=== PATIENT | female | born 1975 | race Caucasian/White ===

== ENCOUNTER → 2016-06-27 | Outpatient (REF) | payer OTHER, MEDICAID ==
[~2016-06-27] MED LIST: ABIL20TA2; ABIL30TA4; AMOX875T; ATIV1TAB2; CLOZ100T OR; CLOZ100T PO; CLOZ100T2 PO; CLOZ25TA2 PO; CLOZARIL PO; DEPA1TAB PO; DEPA250T2 PO; DEPA250T3 OR; DEPA500T; DEPA500T2; DEPA500T2 PO; DOCU10CA PO; HYDR25TA6; INVE156I IM; INVE234I IM; LAMI25TA PO; LAMI25TA3 PO; LAMI50TA2 PO; LEXA1TAB PO; QUET30XR; RISP1TAB; RISP2TAB12; SERO400T3; SERO400T3 OR; TRAZ100T OR
[2016-06-27 15:49] LABS: BASO % 0.2 % (0.0-1.0); EOS % 0.1 % (0.0-3.0); LARGE UNSTAINED CELL # 0.1 K/mm3 (0.0-0.4); LARGE UNSTAINED CELL % 1.5 % (0.0-4.0); LYMPH # 1.7 K/mm3 (1.5-4.5); LYMPH % 27.2 % (24.0-44.0); MEAN CORPUSCULAR HEMOGLOBIN 29.1 pg (27.0-33.0); MEAN CORPUSCULAR HGB CONC 33.4 g/dl (32.0-36.5); MEAN CORPUSCULAR VOLUME 87.1 fl (80.0-96.0); MONO # 0.4 K/mm3 (0.0-0.8); MONO % 6.6 % (0.0-5.0); NEUTROPHILS % 64.5 % (36.0-66.0); PLATELET COUNT, AUTOMATED 157 k/mm3 (150-450); RED CELL DISTRIBUTION WIDTH 12.2 % (11.5-14.5); WHITE BLOOD COUNT 6.2 K/mm3 (4.0-10.0)
== END ==
LOC: M LABDRAW1 13:20
PROVIDERS: ATTEND Psychiatry & Neurology Psychiatry
DX: Z51.81 Encounter for therapeutic drug level monitoring (principal); Z79.899 Other long term (current) drug therapy

== ENCOUNTER → 2016-07-25 | Outpatient (REF) | payer OTHER, MEDICAID ==
[2016-07-25 12:53] LABS: BASO % 0.2 % (0.0-1.0); EOS % 0.2 % (0.0-3.0); LARGE UNSTAINED CELL # 0.1 K/mm3 (0.0-0.4); LARGE UNSTAINED CELL % 1.3 % (0.0-4.0); LYMPH # 1.7 K/mm3 (1.5-4.5); LYMPH % 25.4 % (24.0-44.0); MEAN CORPUSCULAR HGB CONC 34.5 g/dl (32.0-36.5); MONO # 0.5 K/mm3 (0.0-0.8); NEUTROPHILS # 4.3 K/mm3 (1.8-7.7); NEUTROPHILS % 65.9 % (36.0-66.0); PLATELET COUNT, AUTOMATED 136 k/mm3 (150-450); RED CELL DISTRIBUTION WIDTH 12.4 % (11.5-14.5); WHITE BLOOD COUNT 6.5 K/mm3 (4.0-10.0)
== END ==
LOC: M LABDRAW1 12:22
PROVIDERS: ATTEND Psychiatry & Neurology Psychiatry
DX: Z79.899 Other long term (current) drug therapy (principal)

== ENCOUNTER → 2016-08-23 | Outpatient (REF) | payer OTHER, MEDICAID ==
[2016-08-23 16:55] LABS: ALBUMIN 3.2 GM/DL (3.2-5.2); ALBUMIN/GLOBULIN RATIO 0.84 (1.00-1.93); ALKALINE PHOSPHATASE 91 U/L (45-117); ALT/SGPT 40 U/L (12-78); ANION GAP 9 MEQ/L (8-16); AST/SGOT 22 U/L (15-37); BILIRUBIN,TOTAL 0.4 MG/DL (0.2-1.0); BLOOD UREA NITROGEN 14 MG/DL (7-18); CALCIUM LEVEL 8.8 MG/DL (8.5-10.1); CARBON DIOXIDE LEVEL 26 MEQ/L (21-32); CHLORIDE LEVEL 107 MEQ/L (98-107); CHOLESTEROL LEVEL 262 MG/DL (<200); CREATININE FOR GFR 0.77 MG/DL (0.55-1.02); GLOMERULAR FILTRATION RATE > 60.0 (>58); GLUCOSE, FASTING 90 MG/DL (70-105); POTASSIUM SERUM 3.7 MEQ/L (3.5-5.1); SODIUM LEVEL 142 MEQ/L (136-145); TRIGLYCERIDES LEVEL 357 MG/DL (<150)
== END ==
LOC: M LABDRAW1 15:30
PROVIDERS: ATTEND Family Medicine Addiction Medicine
DX: E78.5 Hyperlipidemia, unspecified (principal); E55.9 Vitamin D deficiency, unspecified

== ENCOUNTER → 2016-08-23 | Outpatient (REF) | payer OTHER, MEDICAID ==
[2016-08-23 17:03] LABS: BASO % 0.2 % (0.0-1.0); LARGE UNSTAINED CELL # 0.1 K/mm3 (0.0-0.4); LARGE UNSTAINED CELL % 1.3 % (0.0-4.0); LYMPH # 1.6 K/mm3 (1.5-4.5); LYMPH % 28.2 % (24.0-44.0); MEAN CORPUSCULAR HEMOGLOBIN 29.3 pg (27.0-33.0); MEAN CORPUSCULAR HGB CONC 33.9 g/dl (32.0-36.5); MEAN CORPUSCULAR VOLUME 86.5 fl (80.0-96.0); MONO # 0.4 K/mm3 (0.0-0.8); MONO % 7.8 % (0.0-5.0); NEUTROPHILS # 3.5 K/mm3 (1.8-7.7); NEUTROPHILS % 62.5 % (36.0-66.0); PLATELET COUNT, AUTOMATED 156 k/mm3 (150-450); RED CELL DISTRIBUTION WIDTH 12.4 % (11.5-14.5); WHITE BLOOD COUNT 5.6 K/mm3 (4.0-10.0)
== END ==
LOC: M LABDRAW1 15:32
PROVIDERS: ATTEND Psychiatry & Neurology Psychiatry
DX: Z79.899 Other long term (current) drug therapy (principal)

== ENCOUNTER → 2016-09-19 | Outpatient (REF) | payer OTHER, MEDICAID ==
[2016-09-19 14:05] LABS: BASO % 0.1 % (0.0-1.0); EOS % 0.1 % (0.0-3.0); LARGE UNSTAINED CELL # 0.1 K/mm3 (0.0-0.4); LARGE UNSTAINED CELL % 0.8 % (0.0-4.0); LYMPH # 1.3 K/mm3 (1.5-4.5); LYMPH % 21.8 % (24.0-44.0); MEAN CORPUSCULAR HEMOGLOBIN 29.6 pg (27.0-33.0); MEAN CORPUSCULAR HGB CONC 33.9 g/dl (32.0-36.5); MEAN CORPUSCULAR VOLUME 87.5 fl (80.0-96.0); MONO # 0.4 K/mm3 (0.0-0.8); MONO % 6.6 % (0.0-5.0); NEUTROPHILS # 4.2 K/mm3 (1.8-7.7); NEUTROPHILS % 70.6 % (36.0-66.0); PLATELET COUNT, AUTOMATED 135 k/mm3 (150-450); RED CELL DISTRIBUTION WIDTH 12.6 % (11.5-14.5); WHITE BLOOD COUNT 5.9 K/mm3 (4.0-10.0)
== END ==
LOC: M LABDRAW1 13:04
PROVIDERS: ATTEND Psychiatry & Neurology Psychiatry
DX: Z79.899 Other long term (current) drug therapy (principal)

== ENCOUNTER → 2016-10-26 | Outpatient (REF) | payer OTHER, MEDICAID ==
[2016-10-26 13:07] LABS: BASO % 0.2 % (0.0-1.0); EOS % 0.2 % (0.0-3.0); LARGE UNSTAINED CELL # 0.1 K/mm3 (0.0-0.4); LARGE UNSTAINED CELL % 1.1 % (0.0-4.0); LYMPH # 1.6 K/mm3 (1.5-4.5); LYMPH % 27.6 % (24.0-44.0); MEAN CORPUSCULAR HEMOGLOBIN 30.3 pg (27.0-33.0); MEAN CORPUSCULAR HGB CONC 34.9 g/dl (32.0-36.5); MEAN CORPUSCULAR VOLUME 86.7 fl (80.0-96.0); MONO # 0.5 K/mm3 (0.0-0.8); MONO % 8.9 % (0.0-5.0); NEUTROPHILS # 3.5 K/mm3 (1.8-7.7); PLATELET COUNT, AUTOMATED 147 k/mm3 (150-450); RED CELL DISTRIBUTION WIDTH 12.5 % (11.5-14.5); WHITE BLOOD COUNT 5.7 K/mm3 (4.0-10.0)
== END ==
LOC: M LABDRAW1 12:49
PROVIDERS: ATTEND Psychiatry & Neurology Psychiatry
DX: Z79.899 Other long term (current) drug therapy (principal)

== ENCOUNTER → 2016-11-21 | Outpatient (REF) | payer OTHER, MEDICAID ==
[2016-11-21 16:34] LABS: BASO % 0.2 % (0.0-1.0); EOS % 0.1 % (0.0-3.0); LARGE UNSTAINED CELL # 0.1 K/mm3 (0.0-0.4); LYMPH # 1.6 K/mm3 (1.5-4.5); LYMPH % 20.1 % (24.0-44.0); MEAN CORPUSCULAR HEMOGLOBIN 30.3 pg (27.0-33.0); MEAN CORPUSCULAR HGB CONC 34.5 g/dl (32.0-36.5); MEAN CORPUSCULAR VOLUME 87.6 fl (80.0-96.0); MONO # 0.4 K/mm3 (0.0-0.8); MONO % 5.7 % (0.0-5.0); NEUTROPHILS # 5.4 K/mm3 (1.8-7.7); NEUTROPHILS % 72.9 % (36.0-66.0); PLATELET COUNT, AUTOMATED 134 k/mm3 (150-450); RED CELL DISTRIBUTION WIDTH 12.4 % (11.5-14.5); WHITE BLOOD COUNT 7.4 K/mm3 (4.0-10.0)
== END ==
LOC: M LABDRAW1 16:01
PROVIDERS: ATTEND Psychiatry & Neurology Psychiatry
DX: Z79.899 Other long term (current) drug therapy (principal)

== ENCOUNTER → 2016-12-20 | Outpatient (REF) | payer OTHER, MEDICAID ==
[2016-12-20 16:22] LABS: BASO % 0.1 % (0.0-1.0); EOS % 0.1 % (0.0-3.0); LARGE UNSTAINED CELL % 0.5 % (0.0-4.0); LYMPH # 1.2 K/mm3 (1.5-4.5); LYMPH % 18.2 % (24.0-44.0); MEAN CORPUSCULAR HGB CONC 34.4 g/dl (32.0-36.5); MEAN CORPUSCULAR VOLUME 87.1 fl (80.0-96.0); MONO # 0.4 K/mm3 (0.0-0.8); MONO % 5.7 % (0.0-5.0); NEUTROPHILS # 4.9 K/mm3 (1.8-7.7); NEUTROPHILS % 75.4 % (36.0-66.0); PLATELET COUNT, AUTOMATED 146 k/mm3 (150-450); RED CELL DISTRIBUTION WIDTH 12.4 % (11.5-14.5); WHITE BLOOD COUNT 6.5 K/mm3 (4.0-10.0)
== END ==
LOC: M LABDRAW1 16:08
PROVIDERS: ATTEND Psychiatry & Neurology Psychiatry
DX: Z79.899 Other long term (current) drug therapy (principal)

== ENCOUNTER → 2017-01-24 | Outpatient (REF) | payer OTHER, MEDICAID ==
[2017-01-24 14:31] LABS: BASO % 0.4 % (0.0-1.0); EOS % 0.1 % (0.0-3.0); LARGE UNSTAINED CELL # 0.1 K/mm3 (0.0-0.4); LYMPH # 1.5 K/mm3 (1.5-4.5); LYMPH % 25.7 % (24.0-44.0); MEAN CORPUSCULAR HEMOGLOBIN 30.2 pg (27.0-33.0); MEAN CORPUSCULAR HGB CONC 35.1 g/dl (32.0-36.5); MONO # 0.5 K/mm3 (0.0-0.8); MONO % 8.2 % (0.0-5.0); NEUTROPHILS # 3.8 K/mm3 (1.8-7.7); NEUTROPHILS % 64.6 % (36.0-66.0); PLATELET COUNT, AUTOMATED 146 k/mm3 (150-450); RED CELL DISTRIBUTION WIDTH 12.6 % (11.5-14.5); WHITE BLOOD COUNT 5.8 K/mm3 (4.0-10.0)
== END ==
LOC: M LABDRAW1 11:37
PROVIDERS: ATTEND Psychiatry & Neurology Psychiatry
DX: Z79.899 Other long term (current) drug therapy (principal)

== ENCOUNTER → 2017-02-21 | Outpatient (REF) | payer OTHER, MEDICAID ==
[2017-02-21 13:01] LABS: ALBUMIN 3.4 GM/DL (3.2-5.2); ALBUMIN/GLOBULIN RATIO 0.97 (1.00-1.93); ALKALINE PHOSPHATASE 79 U/L (45-117); ALT/SGPT 26 U/L (12-78); ANION GAP 9 MEQ/L (8-16); AST/SGOT 14 U/L (15-37); BILIRUBIN,TOTAL 0.6 MG/DL (0.2-1.0); BLOOD UREA NITROGEN 10 MG/DL (7-18); CALCIUM LEVEL 9.1 MG/DL (8.5-10.1); CARBON DIOXIDE LEVEL 24 MEQ/L (21-32); CHLORIDE LEVEL 108 MEQ/L (98-107); CHOLESTEROL LEVEL 257 MG/DL (<200); CREATININE FOR GFR 0.61 MG/DL (0.55-1.02); GLOMERULAR FILTRATION RATE > 60.0 (>58); GLUCOSE, FASTING 96 MG/DL (70-105); POTASSIUM SERUM 3.7 MEQ/L (3.5-5.1); SODIUM LEVEL 141 MEQ/L (136-145); TOTAL PROTEIN 6.9 GM/DL (6.4-8.2); TRIGLYCERIDES LEVEL 371 MG/DL (<150)
== END ==
LOC: M LABDRAW1 10:59
PROVIDERS: ATTEND Family Medicine Addiction Medicine
DX: E78.5 Hyperlipidemia, unspecified (principal)

== ENCOUNTER → 2017-02-21 | Outpatient (REF) | payer OTHER, MEDICAID ==
[2017-02-21 12:28] LABS: BASO % 0.3 % (0.0-1.0); IMMATURE GRANULOCYTE % 0.2 % (0-0); LYMPH # 1.4 10^3/uL (1.5-4.5); LYMPH % 23.9 % (24.0-44.0); MEAN CORPUSCULAR HEMOGLOBIN 29.2 pg (27.0-33.0); MEAN CORPUSCULAR HGB CONC 34.4 g/dl (32.0-36.5); MEAN CORPUSCULAR VOLUME 84.7 fl (80.0-96.0); MONO # 0.5 10^3/uL (0.0-0.8); MONO % 7.8 % (0.0-5.0); NEUTROPHILS % 67.8 % (36.0-66.0); PLATELET COUNT, AUTOMATED 173 10^3/uL (150-450); RED CELL DISTRIBUTION WIDTH 12.3 % (11.5-14.5); WHITE BLOOD COUNT 5.9 10^3/uL (4.0-10.0)
== END ==
LOC: M LABDRAW1 10:57
PROVIDERS: ATTEND Psychiatry & Neurology Psychiatry
DX: Z79.899 Other long term (current) drug therapy (principal)

== ENCOUNTER → 2017-03-27 | Outpatient (REF) | payer OTHER, MEDICAID ==
[2017-03-27 16:49] LABS: BASO % 0.3 % (0.0-1.0); IMMATURE GRANULOCYTE % 0.2 % (0-0); LYMPH # 1.8 10^3/uL (1.5-4.5); MEAN CORPUSCULAR HEMOGLOBIN 29.2 pg (27.0-33.0); MEAN CORPUSCULAR HGB CONC 34.1 g/dl (32.0-36.5); MEAN CORPUSCULAR VOLUME 85.8 fl (80.0-96.0); MONO # 0.5 10^3/uL (0.0-0.8); MONO % 8.1 % (0.0-5.0); NEUTROPHILS # 4.3 10^3/uL (1.8-7.7); NEUTROPHILS % 64.4 % (36.0-66.0); PLATELET COUNT, AUTOMATED 178 10^3/uL (150-450); RED CELL DISTRIBUTION WIDTH 12.2 % (11.5-14.5); WHITE BLOOD COUNT 6.6 10^3/uL (4.0-10.0)
== END ==
LOC: M LABDRAW1 15:44
PROVIDERS: ATTEND Psychiatry & Neurology Psychiatry
DX: Z79.899 Other long term (current) drug therapy (principal)

== ENCOUNTER → 2017-04-25 | Outpatient (REF) | payer OTHER, MEDICAID ==
[2017-04-25 12:12] LABS: BASO % 0.3 % (0.0-1.0); IMMATURE GRANULOCYTE % 0.3 % (0-0); LYMPH # 1.4 10^3/uL (1.5-4.5); LYMPH % 23.8 % (24.0-44.0); MEAN CORPUSCULAR HEMOGLOBIN 29.1 pg (27.0-33.0); MEAN CORPUSCULAR HGB CONC 33.9 g/dl (32.0-36.5); MEAN CORPUSCULAR VOLUME 85.8 fl (80.0-96.0); MONO # 0.4 10^3/uL (0.0-0.8); MONO % 7.5 % (0.0-5.0); NEUTROPHILS # 3.9 10^3/uL (1.8-7.7); NEUTROPHILS % 68.1 % (36.0-66.0); PLATELET COUNT, AUTOMATED 161 10^3/uL (150-450); RED CELL DISTRIBUTION WIDTH 12.3 % (11.5-14.5); WHITE BLOOD COUNT 5.8 10^3/uL (4.0-10.0)
== END ==
LOC: M LABDRAW1 11:13
PROVIDERS: ATTEND Psychiatry & Neurology Psychiatry
DX: Z51.81 Encounter for therapeutic drug level monitoring (principal); Z79.899 Other long term (current) drug therapy

== ENCOUNTER → 2017-06-27 | Outpatient (REF) | payer OTHER, MEDICAID ==
[2017-06-27 15:58] LABS: BASO % 0.3 % (0.0-1.0); EOS % 0.1 % (0.0-3.0); HEMATOCRIT 43.9 % (36.0-47.0); HEMOGLOBIN 15.3 g/dl (12.0-16.0); IMMATURE GRANULOCYTE # 0.1 10^3/uL (0-0); IMMATURE GRANULOCYTE % 0.7 % (0-0); LYMPH # 1.7 10^3/uL (1.5-4.5); LYMPH % 23.6 % (24.0-44.0); MEAN CORPUSCULAR HEMOGLOBIN 29.4 pg (27.0-33.0); MEAN CORPUSCULAR HGB CONC 34.9 g/dl (32.0-36.5); MEAN CORPUSCULAR VOLUME 84.4 fl (80.0-96.0); MONO # 0.6 10^3/uL (0.0-0.8); MONO % 8.7 % (0.0-5.0); NEUTROPHILS # 4.7 10^3/uL (1.8-7.7); NEUTROPHILS % 66.6 % (36.0-66.0); PLATELET COUNT, AUTOMATED 174 10^3/uL (150-450); RED CELL DISTRIBUTION WIDTH 12.4 % (11.5-14.5); WHITE BLOOD COUNT 7.1 10^3/uL (4.0-10.0)
== END ==
LOC: M LABDRAW1 14:37
DX: Z79.899 Other long term (current) drug therapy (principal)

== ENCOUNTER → 2017-07-25 | Outpatient (REF) | payer OTHER, MEDICAID ==
[2017-07-25 16:22] LABS: BASO % 0.3 % (0.0-1.0); EOS % 0.1 % (0.0-3.0); HEMOGLOBIN 15.4 g/dl (12.0-16.0); IMMATURE GRANULOCYTE % 0.4 % (0-3.0); LYMPH # 1.9 10^3/uL (1.5-4.5); MEAN CORPUSCULAR HEMOGLOBIN 29.3 pg (27.0-33.0); MEAN CORPUSCULAR HGB CONC 34.2 g/dl (32.0-36.5); MEAN CORPUSCULAR VOLUME 85.6 fl (80.0-96.0); MONO # 0.6 10^3/uL (0.0-0.8); MONO % 7.9 % (0.0-5.0); NEUTROPHILS # 4.8 10^3/uL (1.8-7.7); NEUTROPHILS % 65.3 % (36.0-66.0); PLATELET COUNT, AUTOMATED 172 10^3/uL (150-450); RED BLOOD COUNT 5.26 10^6/uL (4.00-5.40); RED CELL DISTRIBUTION WIDTH 12.4 % (11.5-14.5); WHITE BLOOD COUNT 7.3 10^3/uL (4.0-10.0)
== END ==
LOC: M LABDRAW1 15:30
DX: Z51.81 Encounter for therapeutic drug level monitoring (principal); Z79.899 Other long term (current) drug therapy

== ENCOUNTER → 2017-08-22 | Outpatient (REF) | payer OTHER, MEDICAID ==
[2017-08-22 16:01] LABS: ALBUMIN 3.3 GM/DL (3.2-5.2); ALBUMIN/GLOBULIN RATIO 0.94 (1.00-1.93); ALKALINE PHOSPHATASE 92 U/L (45-117); ALT/SGPT 29 U/L (12-78); ANION GAP 7 MEQ/L (8-16); AST/SGOT 18 U/L (7-37); BILIRUBIN,TOTAL 0.5 MG/DL (0.2-1.0); BLOOD UREA NITROGEN 12 MG/DL (7-18); CALCIUM LEVEL 8.8 MG/DL (8.5-10.1); CARBON DIOXIDE LEVEL 26 MEQ/L (21-32); CHLORIDE LEVEL 108 MEQ/L (98-107); CHOLESTEROL LEVEL 241 MG/DL (<200); CHOLESTEROL RISK RATIO 6.179 (<5); CREATININE FOR GFR 0.72 MG/DL (0.55-1.30); GLOMERULAR FILTRATION RATE > 60.0 (>58); GLUCOSE, FASTING 87 MG/DL (70-100); HDL CHOLESTEROL 39 MG/DL (>40); LDL CHOLESTEROL 133.2 MG/DL (<100); NON-HDL-C 202 MG/DL; POTASSIUM SERUM 4.2 MEQ/L (3.5-5.1); SODIUM LEVEL 141 MEQ/L (136-145); TOTAL PROTEIN 6.8 GM/DL (6.4-8.2); TRIGLYCERIDES LEVEL 344 MG/DL (<150)
== END ==
LOC: M LABDRAW1 12:03
DX: E78.5 Hyperlipidemia, unspecified (principal)
CPT/HCPCS: 84443

== ENCOUNTER → 2017-08-22 | Outpatient (REF) | payer OTHER, MEDICAID ==
[2017-08-22 15:31] LABS: BASO % 0.4 % (0.0-1.0); HEMATOCRIT 43.2 % (36.0-47.0); HEMOGLOBIN 14.4 g/dl (12.0-16.0); IMMATURE GRANULOCYTE % 0.3 % (0-3.0); LYMPH # 1.6 10^3/uL (1.5-4.5); MEAN CORPUSCULAR HEMOGLOBIN 28.7 pg (27.0-33.0); MEAN CORPUSCULAR HGB CONC 33.3 g/dl (32.0-36.5); MEAN CORPUSCULAR VOLUME 86.1 fl (80.0-96.0); MONO # 0.5 10^3/uL (0.0-0.8); NEUTROPHILS # 4.6 10^3/uL (1.8-7.7); NEUTROPHILS % 68.3 % (36.0-66.0); PLATELET COUNT, AUTOMATED 160 10^3/uL (150-450); RED BLOOD COUNT 5.02 10^6/uL (4.00-5.40); RED CELL DISTRIBUTION WIDTH 12.5 % (11.5-14.5); WHITE BLOOD COUNT 6.7 10^3/uL (4.0-10.0)
== END ==
LOC: M LABDRAW1 11:33
DX: Z79.899 Other long term (current) drug therapy (principal)
CPT/HCPCS: 36415

== ENCOUNTER → 2017-09-24 | Outpatient (REF) | payer OTHER, MEDICAID ==
[2017-09-24 16:01] LABS: BASO % 0.4 % (0.0-1.0); EOS % 0.1 % (0.0-3.0); HEMOGLOBIN 14.5 g/dl (12.0-15.5); IMMATURE GRANULOCYTE % 0.4 % (0-3.0); LYMPH # 1.7 10^3/uL (1.5-4.5); LYMPH % 25.3 % (24.0-44.0); MEAN CORPUSCULAR HEMOGLOBIN 29.6 pg (27.0-33.0); MEAN CORPUSCULAR HGB CONC 34.5 g/dl (32.0-36.5); MEAN CORPUSCULAR VOLUME 85.7 fl (80.0-96.0); MONO # 0.7 10^3/uL (0.0-0.8); MONO % 9.7 % (0.0-5.0); NEUTROPHILS # 4.3 10^3/uL (1.8-7.7); NEUTROPHILS % 64.1 % (36.0-66.0); PLATELET COUNT, AUTOMATED 168 10^3/uL (150-450); RED CELL DISTRIBUTION WIDTH 12.2 % (11.5-14.5); WHITE BLOOD COUNT 6.8 10^3/uL (4.0-10.0)
== END ==
LOC: M LABDRAW1 15:44
DX: Z79.899 Other long term (current) drug therapy (principal)

== ENCOUNTER → 2017-10-23 | Outpatient (REF) | payer OTHER, MEDICAID ==
[2017-10-23 16:00] LABS: BASO % 0.3 % (0.0-1.0); HEMATOCRIT 43.1 % (36.0-47.0); HEMOGLOBIN 14.8 g/dl (12.0-15.5); IMMATURE GRANULOCYTE % 0.3 % (0-3.0); LYMPH # 1.8 10^3/uL (1.5-4.5); LYMPH % 26.2 % (24.0-44.0); MEAN CORPUSCULAR HEMOGLOBIN 29.5 pg (27.0-33.0); MEAN CORPUSCULAR HGB CONC 34.3 g/dl (32.0-36.5); MEAN CORPUSCULAR VOLUME 85.9 fl (80.0-96.0); MONO # 0.6 10^3/uL (0.0-0.8); MONO % 8.7 % (0.0-5.0); NEUTROPHILS # 4.5 10^3/uL (1.8-7.7); NEUTROPHILS % 64.5 % (36.0-66.0); PLATELET COUNT, AUTOMATED 153 10^3/uL (150-450); RED BLOOD COUNT 5.02 10^6/uL (4.00-5.40); RED CELL DISTRIBUTION WIDTH 12.1 % (11.5-14.5)
== END ==
LOC: M LABDRAW1 15:45
DX: Z51.81 Encounter for therapeutic drug level monitoring (principal); Z79.899 Other long term (current) drug therapy
CPT/HCPCS: 85025

== ENCOUNTER → 2017-11-20 | Outpatient (REF) | payer OTHER, MEDICAID ==
[2017-11-20 17:22] LABS: BASO % 0.3 % (0.0-1.0); HEMATOCRIT 44.4 % (36.0-47.0); HEMOGLOBIN 15.1 g/dl (12.0-15.5); IMMATURE GRANULOCYTE % 0.3 % (0-3.0); LYMPH # 1.8 10^3/uL (1.5-4.5); LYMPH % 26.5 % (24.0-44.0); MEAN CORPUSCULAR HEMOGLOBIN 29.3 pg (27.0-33.0); MONO # 0.6 10^3/uL (0.0-0.8); MONO % 8.1 % (0.0-5.0); NEUTROPHILS # 4.4 10^3/uL (1.8-7.7); NEUTROPHILS % 64.8 % (36.0-66.0); PLATELET COUNT, AUTOMATED 151 10^3/uL (150-450); RED BLOOD COUNT 5.16 10^6/uL (4.00-5.40); RED CELL DISTRIBUTION WIDTH 11.9 % (11.5-14.5); WHITE BLOOD COUNT 6.8 10^3/uL (4.0-10.0)
== END ==
LOC: M LABDRAW1 15:43
DX: Z79.899 Other long term (current) drug therapy (principal)

== ENCOUNTER → 2017-12-25 | Outpatient (REF) | payer OTHER, MEDICAID ==
[2017-12-25 13:51] LABS: BASO % 0.1 % (0.0-1.0); HEMATOCRIT 43.5 % (36.0-47.0); HEMOGLOBIN 14.7 g/dl (12.0-15.5); IMMATURE GRANULOCYTE % 0.4 % (0-3.0); LYMPH # 1.8 10^3/uL (1.5-4.5); LYMPH % 23.5 % (24.0-44.0); MEAN CORPUSCULAR HEMOGLOBIN 29.4 pg (27.0-33.0); MEAN CORPUSCULAR HGB CONC 33.8 g/dl (32.0-36.5); MONO # 0.7 10^3/uL (0.0-0.8); MONO % 9.4 % (0.0-5.0); NEUTROPHILS # 5.1 10^3/uL (1.8-7.7); NEUTROPHILS % 66.6 % (36.0-66.0); PLATELET COUNT, AUTOMATED 168 10^3/uL (150-450); RED CELL DISTRIBUTION WIDTH 12.1 % (11.5-14.5); WHITE BLOOD COUNT 7.6 10^3/uL (4.0-10.0)
== END ==
LOC: M LABDRAW1 13:32
DX: Z51.81 Encounter for therapeutic drug level monitoring (principal); Z79.899 Other long term (current) drug therapy
CPT/HCPCS: 85025

== ENCOUNTER → 2018-02-28 | Outpatient (REF) | payer OTHER, MEDICAID ==
[2018-02-28 14:53] LABS: ALBUMIN 3.3 GM/DL (3.2-5.2); ALBUMIN/GLOBULIN RATIO 0.85 (1.00-1.93); ALKALINE PHOSPHATASE 91 U/L (45-117); ALT/SGPT 28 U/L (12-78); ANION GAP 8 MEQ/L (8-16); AST/SGOT 17 U/L (7-37); BILIRUBIN,TOTAL 0.3 MG/DL (0.2-1.0); BLOOD UREA NITROGEN 15 MG/DL (7-18); CALCIUM LEVEL 8.3 MG/DL (8.5-10.1); CARBON DIOXIDE LEVEL 26 MEQ/L (21-32); CHLORIDE LEVEL 106 MEQ/L (98-107); CHOLESTEROL LEVEL 249 MG/DL (<200); CHOLESTEROL RISK RATIO 7.114 (<5); CREATININE FOR GFR 0.76 MG/DL (0.55-1.30); GLOMERULAR FILTRATION RATE > 60.0 (>58); GLUCOSE, FASTING 84 MG/DL (70-100); HDL CHOLESTEROL 35 MG/DL (>40); NON-HDL-C 214 MG/DL; POTASSIUM SERUM 4.1 MEQ/L (3.5-5.1); SODIUM LEVEL 140 MEQ/L (136-145); TOTAL PROTEIN 7.2 GM/DL (6.4-8.2); TRIGLYCERIDES LEVEL 425 MG/DL (<150)
== END ==
LOC: M LABDRAW1 13:56
DX: E78.5 Hyperlipidemia, unspecified (principal)

== ENCOUNTER → 2018-02-28 | Outpatient (REF) | payer OTHER, MEDICAID ==
[2018-02-28 14:13] LABS: BASO % 0.3 % (0.0-1.0); EOS % 0.1 % (0.0-3.0); HEMATOCRIT 44.6 % (36.0-47.0); HEMOGLOBIN 14.9 g/dl (12.0-15.5); IMMATURE GRANULOCYTE % 0.6 % (0-3.0); LYMPH % 28.5 % (24.0-44.0); MEAN CORPUSCULAR HEMOGLOBIN 29.1 pg (27.0-33.0); MEAN CORPUSCULAR HGB CONC 33.4 g/dl (32.0-36.5); MEAN CORPUSCULAR VOLUME 87.1 fl (80.0-96.0); MONO # 0.6 10^3/uL (0.0-0.8); MONO % 8.6 % (0.0-5.0); NEUTROPHILS # 4.3 10^3/uL (1.8-7.7); NEUTROPHILS % 61.9 % (36.0-66.0); PLATELET COUNT, AUTOMATED 173 10^3/uL (150-450); RED BLOOD COUNT 5.12 10^6/uL (4.00-5.40); RED CELL DISTRIBUTION WIDTH 12.3 % (11.5-14.5)
== END ==
LOC: M LABDRAW1 13:55
DX: Z79.899 Other long term (current) drug therapy (principal)

== ENCOUNTER → 2018-03-28 | Outpatient (REF) | payer OTHER, MEDICAID ==
[2018-03-28 17:04] LABS: BASO % 0.4 % (0.0-1.0); HEMATOCRIT 44.7 % (36.0-47.0); HEMOGLOBIN 15.2 g/dl (12.0-15.5); IMMATURE GRANULOCYTE % 0.4 % (0-3.0); LYMPH # 1.8 10^3/uL (1.5-4.5); LYMPH % 21.8 % (24.0-44.0); MEAN CORPUSCULAR HEMOGLOBIN 29.5 pg (27.0-33.0); MEAN CORPUSCULAR VOLUME 86.6 fl (80.0-96.0); MONO # 0.7 10^3/uL (0.0-0.8); MONO % 7.9 % (0.0-5.0); NEUTROPHILS # 5.8 10^3/uL (1.8-7.7); NEUTROPHILS % 69.5 % (36.0-66.0); PLATELET COUNT, AUTOMATED 156 10^3/uL (150-450); RED BLOOD COUNT 5.16 10^6/uL (4.00-5.40); RED CELL DISTRIBUTION WIDTH 12.1 % (11.5-14.5); WHITE BLOOD COUNT 8.3 10^3/uL (4.0-10.0)
== END ==
LOC: M LABDRAW1 15:22
DX: Z79.899 Other long term (current) drug therapy (principal)

== ENCOUNTER → 2018-05-01 | Outpatient (REF) | payer OTHER, MEDICAID ==
[2018-05-01 19:03] LABS: BASO % 0.4 % (0.0-1.0); HEMATOCRIT 44.1 % (36.0-47.0); HEMOGLOBIN 14.9 g/dl (12.0-15.5); IMMATURE GRANULOCYTE % 0.5 % (0-3.0); LYMPH # 1.9 10^3/uL (1.5-4.5); LYMPH % 24.8 % (24.0-44.0); MEAN CORPUSCULAR HEMOGLOBIN 29.5 pg (27.0-33.0); MEAN CORPUSCULAR HGB CONC 33.8 g/dl (32.0-36.5); MEAN CORPUSCULAR VOLUME 87.3 fl (80.0-96.0); MONO # 0.6 10^3/uL (0.0-0.8); MONO % 8.2 % (0.0-5.0); NEUTROPHILS # 5.1 10^3/uL (1.8-7.7); NEUTROPHILS % 66.1 % (36.0-66.0); PLATELET COUNT, AUTOMATED 172 10^3/uL (150-450); RED BLOOD COUNT 5.05 10^6/uL (4.00-5.40); RED CELL DISTRIBUTION WIDTH 12.1 % (11.5-14.5); WHITE BLOOD COUNT 7.8 10^3/uL (4.0-10.0)
== END ==
LOC: M LABDRAW1 14:49
DX: Z79.899 Other long term (current) drug therapy (principal)

== ENCOUNTER → 2018-05-30 | Outpatient (REF) | payer OTHER, MEDICAID ==
[2018-05-30 14:53] LABS: BASO % 0.3 % (0.0-1.0); HEMATOCRIT 45.8 % (36.0-47.0); HEMOGLOBIN 15.3 g/dl (12.0-15.5); LYMPH # 1.8 10^3/uL (1.5-4.5); LYMPH % 23.9 % (24.0-44.0); MEAN CORPUSCULAR HGB CONC 33.4 g/dl (32.0-36.5); MEAN CORPUSCULAR VOLUME 86.9 fl (80.0-96.0); MONO # 0.7 10^3/uL (0.0-0.8); MONO % 8.8 % (0.0-5.0); NEUTROPHILS % 66.7 % (36.0-66.0); PLATELET COUNT, AUTOMATED 156 10^3/uL (150-450); RED BLOOD COUNT 5.27 10^6/uL (4.00-5.40); WHITE BLOOD COUNT 7.5 10^3/uL (4.0-10.0)
== END ==
LOC: M LABDRAW1 14:02
PROVIDERS: ATTEND Psychiatry & Neurology Psychiatry
DX: Z51.81 Encounter for therapeutic drug level monitoring (principal); Z79.899 Other long term (current) drug therapy

== ENCOUNTER → 2018-07-05 | Outpatient (REF) | payer OTHER, MEDICAID ==
[2018-07-05 16:03] LABS: BASO % 0.3 % (0.0-1.0); HEMATOCRIT 44.1 % (36.0-47.0); HEMOGLOBIN 14.9 g/dl (12.0-15.5); LYMPH # 1.7 10^3/uL (1.5-4.5); LYMPH % 22.6 % (24.0-44.0); MEAN CORPUSCULAR HEMOGLOBIN 29.3 pg (27.0-33.0); MEAN CORPUSCULAR HGB CONC 33.8 g/dl (32.0-36.5); MEAN CORPUSCULAR VOLUME 86.6 fl (80.0-96.0); MONO # 0.7 10^3/uL (0.0-0.8); MONO % 8.7 % (0.0-5.0); NEUTROPHILS # 5.1 10^3/uL (1.8-7.7); NEUTROPHILS % 68.1 % (36.0-66.0); PLATELET COUNT, AUTOMATED 161 10^3/uL (150-450); RED BLOOD COUNT 5.09 10^6/uL (4.00-5.40); WHITE BLOOD COUNT 7.5 10^3/uL (4.0-10.0)
== END ==
LOC: M LABDRAW1 13:12
PROVIDERS: ATTEND Psychiatry & Neurology Psychiatry
DX: Z79.899 Other long term (current) drug therapy (principal)

== ENCOUNTER → 2018-08-01 | Outpatient (REF) | payer OTHER, MEDICAID ==
[2018-08-01 18:59] LABS: BASO % 0.4 % (0.0-1.0); HEMATOCRIT 45.9 % (36.0-47.0); HEMOGLOBIN 15.3 g/dl (12.0-15.5); LYMPH # 1.9 10^3/uL (1.5-4.5); LYMPH % 27.4 % (24.0-44.0); MEAN CORPUSCULAR HEMOGLOBIN 29.5 pg (27.0-33.0); MEAN CORPUSCULAR HGB CONC 33.3 g/dl (32.0-36.5); MEAN CORPUSCULAR VOLUME 88.6 fl (80.0-96.0); MONO # 0.5 10^3/uL (0.0-0.8); MONO % 7.1 % (0.0-5.0); NEUTROPHILS # 4.4 10^3/uL (1.8-7.7); NEUTROPHILS % 64.8 % (36.0-66.0); PLATELET COUNT, AUTOMATED 179 10^3/uL (150-450); RED BLOOD COUNT 5.18 10^6/uL (4.00-5.40); WHITE BLOOD COUNT 6.8 10^3/uL (4.0-10.0)
== END ==
LOC: M LAB REF 18:01 → M LABDRAW1 18:01
PROVIDERS: ATTEND Psychiatry & Neurology Psychiatry
DX: Z79.899 Other long term (current) drug therapy (principal)

== ENCOUNTER → 2018-09-04 | Outpatient (REF) | payer OTHER ==
[~2018-09-04] MED LIST changes: -CLOZ100T OR; +CLOZ100T45 OR; -QUET30XR; +SERO300T20
[2018-09-04 13:09] LABS: BASO % 0.3 % (0.0-1.0); HEMATOCRIT 45.5 % (36.0-47.0); HEMOGLOBIN 15.2 g/dl (12.0-15.5); LYMPH # 1.6 10^3/uL (1.5-4.5); LYMPH % 17.1 % (24.0-44.0); MEAN CORPUSCULAR HEMOGLOBIN 29.2 pg (27.0-33.0); MEAN CORPUSCULAR HGB CONC 33.4 g/dl (32.0-36.5); MEAN CORPUSCULAR VOLUME 87.5 fl (80.0-96.0); MONO # 0.7 10^3/uL (0.0-0.8); NEUTROPHILS % 75.3 % (36.0-66.0); PLATELET COUNT, AUTOMATED 162 10^3/uL (150-450); WHITE BLOOD COUNT 9.3 10^3/uL (4.0-10.0)
== END ==
LOC: M LABDRAW1 12:01
PROVIDERS: ATTEND Psychiatry & Neurology Psychiatry
DX: Z79.899 Other long term (current) drug therapy (principal)

== ENCOUNTER → 2018-09-04 | Outpatient (REF) | payer OTHER ==
[2018-09-04 13:43] LABS: ALBUMIN 3.4 GM/DL (3.2-5.2); ALT/SGPT 34 U/L (12-78); BILIRUBIN,TOTAL 0.4 MG/DL (0.2-1.0); BLOOD UREA NITROGEN 12 MG/DL (7-18); CALCIUM LEVEL 8.7 MG/DL (8.5-10.1); CARBON DIOXIDE LEVEL 26 MEQ/L (21-32); CHLORIDE LEVEL 106 MEQ/L (98-107); CHOLESTEROL LEVEL 250 MG/DL (<200); CHOLESTEROL RISK RATIO 5.952 (<5); CREATININE FOR GFR 0.76 MG/DL (0.55-1.30); GLOMERULAR FILTRATION RATE > 60.0 (>58); GLUCOSE, FASTING 92 MG/DL (70-100); HDL CHOLESTEROL 42 MG/DL (>40); NON-HDL-C 208 MG/DL; POTASSIUM SERUM 4.1 MEQ/L (3.5-5.1); SODIUM LEVEL 140 MEQ/L (136-145); TOTAL PROTEIN 6.9 GM/DL (6.4-8.2); TRIGLYCERIDES LEVEL 434 MG/DL (<150)
== END ==
LOC: M LABDRAW1 11:58
PROVIDERS: ATTEND Family Medicine Addiction Medicine
DX: E78.5 Hyperlipidemia, unspecified (principal)

== ENCOUNTER → 2018-10-03 | Outpatient (REF) | payer OTHER, MEDICAID ==
[2018-10-03 16:51] LABS: BASO % 0.3 % (0.0-1.0); EOS % 0.1 % (0.0-3.0); HEMOGLOBIN 14.3 g/dl (12.0-15.5); LYMPH # 1.6 10^3/uL (1.5-4.5); LYMPH % 21.2 % (24.0-44.0); MEAN CORPUSCULAR HEMOGLOBIN 29.5 pg (27.0-33.0); MEAN CORPUSCULAR VOLUME 86.8 fl (80.0-96.0); MONO # 0.7 10^3/uL (0.0-0.8); MONO % 8.4 % (0.0-5.0); NEUTROPHILS # 5.4 10^3/uL (1.8-7.7); NEUTROPHILS % 69.2 % (36.0-66.0); PLATELET COUNT, AUTOMATED 170 10^3/uL (150-450); RED BLOOD COUNT 4.84 10^6/uL (4.00-5.40); WHITE BLOOD COUNT 7.7 10^3/uL (4.0-10.0)
== END ==
LOC: M OUTALCOH 16:10
PROVIDERS: ATTEND Psychiatry & Neurology Psychiatry
DX: Z79.899 Other long term (current) drug therapy (principal)

== ENCOUNTER → 2018-10-31 | Outpatient (REF) | payer OTHER, MEDICAID ==
[2018-10-31 16:26] LABS: BASO % 0.4 % (0.0-1.0); HEMATOCRIT 42.3 % (36.0-47.0); HEMOGLOBIN 14.3 g/dl (12.0-15.5); LYMPH # 1.9 10^3/uL (1.5-4.5); LYMPH % 27.9 % (24.0-44.0); MEAN CORPUSCULAR HEMOGLOBIN 28.9 pg (27.0-33.0); MEAN CORPUSCULAR HGB CONC 33.8 g/dl (32.0-36.5); MEAN CORPUSCULAR VOLUME 85.6 fl (80.0-96.0); MONO # 0.7 10^3/uL (0.0-0.8); MONO % 10.3 % (0.0-5.0); NEUTROPHILS # 4.2 10^3/uL (1.8-7.7); NEUTROPHILS % 61.1 % (36.0-66.0); PLATELET COUNT, AUTOMATED 154 10^3/uL (150-450); RED BLOOD COUNT 4.94 10^6/uL (4.00-5.40); WHITE BLOOD COUNT 6.9 10^3/uL (4.0-10.0)
== END ==
LOC: M LABDRAW1 14:31
PROVIDERS: ATTEND Psychiatry & Neurology Psychiatry
DX: Z79.899 Other long term (current) drug therapy (principal)

== ENCOUNTER → 2018-12-05 | Outpatient (REF) | payer OTHER, MEDICAID ==
[2018-12-05 18:20] LABS: BASO % 0.3 % (0.0-1.0); HEMATOCRIT 43.4 % (36.0-47.0); HEMOGLOBIN 14.4 g/dl (12.0-15.5); LYMPH # 1.5 10^3/uL (1.5-4.5); LYMPH % 24.1 % (24.0-44.0); MEAN CORPUSCULAR HEMOGLOBIN 30.1 pg (27.0-33.0); MEAN CORPUSCULAR HGB CONC 33.2 g/dl (32.0-36.5); MEAN CORPUSCULAR VOLUME 90.6 fl (80.0-96.0); MONO # 0.6 10^3/uL (0.0-0.8); MONO % 9.5 % (0.0-5.0); NEUTROPHILS # 4.2 10^3/uL (1.8-7.7); NEUTROPHILS % 65.9 % (36.0-66.0); PLATELET COUNT, AUTOMATED 165 10^3/uL (150-450); RED BLOOD COUNT 4.79 10^6/uL (4.00-5.40); WHITE BLOOD COUNT 6.3 10^3/uL (4.0-10.0)
== END ==
LOC: M LABDRAW1 11:18
PROVIDERS: ATTEND Psychiatry & Neurology Psychiatry
DX: Z79.899 Other long term (current) drug therapy (principal)

== ENCOUNTER → 2019-01-02 | Outpatient (REF) | payer OTHER, MEDICAID ==
[2019-01-02 17:58] LABS: ALBUMIN 3.4 GM/DL (3.2-5.2); ALT/SGPT 29 U/L (12-78); BILIRUBIN,TOTAL 0.4 MG/DL (0.2-1.0); BLOOD UREA NITROGEN 10 MG/DL (7-18); CARBON DIOXIDE LEVEL 25 MEQ/L (21-32); CHLORIDE LEVEL 107 MEQ/L (98-107); CHOLESTEROL LEVEL 239 MG/DL (<200); CHOLESTEROL RISK RATIO 5.975 (<5); CREATININE FOR GFR 0.79 MG/DL (0.55-1.30); GLOMERULAR FILTRATION RATE > 60.0 (>58); GLUCOSE, FASTING 91 MG/DL (70-100); HDL CHOLESTEROL 40 MG/DL (>40); LDL CHOLESTEROL 137 MG/DL (<100); NON-HDL-C 199 MG/DL; SODIUM LEVEL 141 MEQ/L (136-145); TOTAL PROTEIN 7.1 GM/DL (6.4-8.2); TRIGLYCERIDES LEVEL 312 MG/DL (<150)
== END ==
LOC: M LABDRAW1 15:43
PROVIDERS: ATTEND Family Medicine Addiction Medicine
DX: E78.5 Hyperlipidemia, unspecified (principal)

== ENCOUNTER → 2019-01-02 | Outpatient (REF) | payer OTHER, MEDICAID ==
[2019-01-02 18:05] LABS: BASO % 0.5 % (0.0-1.0); HEMATOCRIT 43.7 % (36.0-47.0); HEMOGLOBIN 14.6 g/dl (12.0-15.5); LYMPH # 1.7 10^3/uL (1.5-4.5); LYMPH % 25.1 % (24.0-44.0); MEAN CORPUSCULAR HEMOGLOBIN 29.3 pg (27.0-33.0); MEAN CORPUSCULAR HGB CONC 33.4 g/dl (32.0-36.5); MEAN CORPUSCULAR VOLUME 87.8 fl (80.0-96.0); MONO # 0.7 10^3/uL (0.0-0.8); MONO % 10.1 % (0.0-5.0); NEUTROPHILS # 4.3 10^3/uL (1.8-7.7); NEUTROPHILS % 63.8 % (36.0-66.0); PLATELET COUNT, AUTOMATED 174 10^3/uL (150-450); RED BLOOD COUNT 4.98 10^6/uL (4.00-5.40); WHITE BLOOD COUNT 6.7 10^3/uL (4.0-10.0)
== END ==
LOC: M LABDRAW1 15:47
PROVIDERS: ATTEND Psychiatry & Neurology Psychiatry
DX: Z79.899 Other long term (current) drug therapy (principal)

== ENCOUNTER → 2019-01-30 | Outpatient (REF) | payer OTHER, MEDICAID ==
[2019-01-30 16:11] LABS: BASO % 0.3 % (0.0-1.0); HEMATOCRIT 44.6 % (36.0-47.0); HEMOGLOBIN 14.9 g/dl (12.0-15.5); LYMPH # 1.8 10^3/uL (1.5-5.0); MEAN CORPUSCULAR HEMOGLOBIN 29.2 pg (27.0-33.0); MEAN CORPUSCULAR HGB CONC 33.4 g/dl (32.0-36.5); MEAN CORPUSCULAR VOLUME 87.3 fl (80.0-96.0); MONO # 0.6 10^3/uL (0.0-0.8); MONO % 8.2 % (0.0-5.0); NEUTROPHILS % 67.2 % (36.0-66.0); PLATELET COUNT, AUTOMATED 169 10^3/uL (150-450); RED BLOOD COUNT 5.11 10^6/uL (4.00-5.40); WHITE BLOOD COUNT 7.5 10^3/uL (4.0-10.0)
== END ==
LOC: M LABDRAW1 15:45
PROVIDERS: ATTEND Psychiatry & Neurology Psychiatry
DX: Z79.899 Other long term (current) drug therapy (principal)

== ENCOUNTER → 2019-03-07 | Outpatient (REF) | payer OTHER, MEDICAID ==
[2019-03-07 15:35] LABS: BASO % 0.2 % (0.0-1.0); LYMPH # 1.8 10^3/uL (1.5-5.0); LYMPH % 20.8 % (24.0-44.0); MEAN CORPUSCULAR HEMOGLOBIN 29.5 pg (27.0-33.0); MEAN CORPUSCULAR HGB CONC 33.3 g/dl (32.0-36.5); MEAN CORPUSCULAR VOLUME 88.6 fl (80.0-96.0); MONO # 0.7 10^3/uL (0.0-0.8); MONO % 7.9 % (0.0-5.0); NEUTROPHILS % 70.6 % (36.0-66.0); PLATELET COUNT, AUTOMATED 165 10^3/uL (150-450); RED BLOOD COUNT 5.08 10^6/uL (4.00-5.40); WHITE BLOOD COUNT 8.5 10^3/uL (4.0-10.0)
== END ==
LOC: M LABDRAW1 14:04
PROVIDERS: ATTEND Psychiatry & Neurology Psychiatry
DX: Z79.899 Other long term (current) drug therapy (principal)

== ENCOUNTER → 2019-04-11 | Outpatient (REF) | payer OTHER, MEDICAID ==
[2019-04-11 15:41] LABS: ALBUMIN 3.2 GM/DL (3.2-5.2); ALT/SGPT 30 U/L (12-78); BILIRUBIN,TOTAL 0.4 MG/DL (0.2-1.0); BLOOD UREA NITROGEN 8 MG/DL (7-18); CALCIUM LEVEL 8.5 MG/DL (8.5-10.1); CARBON DIOXIDE LEVEL 25 MEQ/L (21-32); CHLORIDE LEVEL 108 MEQ/L (98-107); CHOLESTEROL LEVEL 216 MG/DL (<200); CHOLESTEROL RISK RATIO 5.837 (<5); CREATININE FOR GFR 0.72 MG/DL (0.55-1.30); GLOMERULAR FILTRATION RATE > 60.0 (>58); GLUCOSE, FASTING 97 MG/DL (70-100); HDL CHOLESTEROL 37 MG/DL (>40); LDL CHOLESTEROL 118 MG/DL (<100); NON-HDL-C 179 MG/DL; POTASSIUM SERUM 3.9 MEQ/L (3.5-5.1); SODIUM LEVEL 141 MEQ/L (136-145); TOTAL PROTEIN 6.8 GM/DL (6.4-8.2); TRIGLYCERIDES LEVEL 307 MG/DL (<150)
[2019-04-11 15:56] LABS: HEMOGLOBIN A1c 5.7 %
== END ==
LOC: M LABDRAW1 15:18
PROVIDERS: ATTEND Nurse Practitioner Family
DX: Z00.00 Encounter for general adult medical examination without abnormal findings (principal); E78.5 Hyperlipidemia, unspecified

== ENCOUNTER → 2019-04-11 | Outpatient (REF) | payer OTHER, MEDICAID ==
[2019-04-11 15:34] LABS: BASO % 0.3 % (0.0-1.0); HEMOGLOBIN 14.7 g/dl (12.0-15.5); LYMPH # 1.6 10^3/uL (1.5-5.0); MEAN CORPUSCULAR HEMOGLOBIN 29.3 pg (27.0-33.0); MEAN CORPUSCULAR HGB CONC 32.7 g/dl (32.0-36.5); MEAN CORPUSCULAR VOLUME 89.6 fl (80.0-96.0); MONO # 0.6 10^3/uL (0.0-0.8); NEUTROPHILS # 4.2 10^3/uL (1.5-8.5); NEUTROPHILS % 65.4 % (36.0-66.0); PLATELET COUNT, AUTOMATED 167 10^3/uL (150-450); RED BLOOD COUNT 5.02 10^6/uL (4.00-5.40); WHITE BLOOD COUNT 6.4 10^3/uL (4.0-10.0)
== END ==
LOC: M LABDRAW1 15:20
PROVIDERS: ATTEND Psychiatry & Neurology Psychiatry
DX: Z79.899 Other long term (current) drug therapy (principal)

== ENCOUNTER → 2019-05-13 | Outpatient (REF) | payer OTHER, MEDICAID ==
[2019-05-13 15:51] LABS: BASO % 0.4 % (0.0-1.0); HEMOGLOBIN 14.7 g/dl (12.0-15.5); LYMPH # 1.6 10^3/uL (1.5-5.0); LYMPH % 22.8 % (24.0-44.0); MEAN CORPUSCULAR HEMOGLOBIN 28.8 pg (27.0-33.0); MONO # 0.6 10^3/uL (0.0-0.8); MONO % 9.3 % (0.0-5.0); NEUTROPHILS # 4.6 10^3/uL (1.5-8.5); NEUTROPHILS % 67.1 % (36.0-66.0); PLATELET COUNT, AUTOMATED 164 10^3/uL (150-450); RED BLOOD COUNT 5.11 10^6/uL (4.00-5.40); WHITE BLOOD COUNT 6.8 10^3/uL (4.0-10.0)
== END ==
LOC: M LABDRAW1 11:13
PROVIDERS: ATTEND Psychiatry & Neurology Psychiatry
DX: Z51.81 Encounter for therapeutic drug level monitoring (principal); Z79.899 Other long term (current) drug therapy

== ENCOUNTER → 2019-06-18 | Outpatient (REF) | payer OTHER, MEDICAID ==
[2019-06-18 15:40] LABS: BASO % 0.4 % (0.0-1.0); HEMATOCRIT 45.8 % (36.0-47.0); HEMOGLOBIN 14.8 g/dl (12.0-15.5); LYMPH # 1.8 10^3/uL (1.5-5.0); LYMPH % 24.6 % (24.0-44.0); MEAN CORPUSCULAR HEMOGLOBIN 28.9 pg (27.0-33.0); MEAN CORPUSCULAR HGB CONC 32.3 g/dl (32.0-36.5); MEAN CORPUSCULAR VOLUME 89.5 fl (80.0-96.0); MONO # 0.6 10^3/uL (0.0-0.8); NEUTROPHILS # 4.7 10^3/uL (1.5-8.5); NEUTROPHILS % 65.7 % (36.0-66.0); PLATELET COUNT, AUTOMATED 163 10^3/uL (150-450); RED BLOOD COUNT 5.12 10^6/uL (4.00-5.40); WHITE BLOOD COUNT 7.1 10^3/uL (4.0-10.0)
== END ==
LOC: M LABDRAW1 15:19
PROVIDERS: ATTEND Psychiatry & Neurology Psychiatry
DX: Z79.899 Other long term (current) drug therapy (principal)

== ENCOUNTER → 2019-07-23 | Outpatient (REF) | payer OTHER, MEDICAID ==
[2019-07-23 15:42] LABS: BASO % 0.4 % (0.0-1.0); EOS % 0.1 % (0.0-3.0); HEMATOCRIT 43.2 % (36.0-47.0); HEMOGLOBIN 14.3 g/dl (12.0-15.5); LYMPH # 1.9 10^3/uL (1.5-5.0); LYMPH % 26.2 % (24.0-44.0); MEAN CORPUSCULAR HEMOGLOBIN 29.4 pg (27.0-33.0); MEAN CORPUSCULAR HGB CONC 33.1 g/dl (32.0-36.5); MEAN CORPUSCULAR VOLUME 88.7 fl (80.0-96.0); MONO # 0.5 10^3/uL (0.0-0.8); NEUTROPHILS # 4.7 10^3/uL (1.5-8.5); PLATELET COUNT, AUTOMATED 194 10^3/uL (150-450); RED BLOOD COUNT 4.87 10^6/uL (4.00-5.40); WHITE BLOOD COUNT 7.1 10^3/uL (4.0-10.0)
== END ==
LOC: M LABDRAW1 14:54
PROVIDERS: ATTEND Psychiatry & Neurology Psychiatry
DX: Z00.00 Encounter for general adult medical examination without abnormal findings (principal)

== ENCOUNTER → 2019-08-20 | Outpatient (REF) | payer OTHER, MEDICAID ==
[2019-08-20 16:00] LABS: BASO % 0.3 % (0.0-1.0); EOS % 0.1 % (0.0-3.0); HEMOGLOBIN 14.8 g/dl (12.0-15.5); LYMPH % 22.5 % (24.0-44.0); MEAN CORPUSCULAR HEMOGLOBIN 28.7 pg (27.0-33.0); MEAN CORPUSCULAR HGB CONC 32.9 g/dl (32.0-36.5); MEAN CORPUSCULAR VOLUME 87.2 fl (80.0-96.0); MONO # 0.8 10^3/uL (0.0-0.8); MONO % 9.1 % (0.0-5.0); NEUTROPHILS # 5.9 10^3/uL (1.5-8.5); NEUTROPHILS % 67.7 % (36.0-66.0); PLATELET COUNT, AUTOMATED 187 10^3/uL (150-450); RED BLOOD COUNT 5.16 10^6/uL (4.00-5.40); WHITE BLOOD COUNT 8.8 10^3/uL (4.0-10.0)
== END ==
LOC: M LABDRAW1 14:26
PROVIDERS: ATTEND Psychiatry & Neurology Psychiatry
DX: Z79.899 Other long term (current) drug therapy (principal)

== ENCOUNTER → 2019-11-03 | Outpatient (CLI) | payer OTHER, MEDICAID ==
[2019-11-03 13:57] LABS: BASO % 0.4 % (0.0-1.0); HEMATOCRIT 45.3 % (36.0-47.0); HEMOGLOBIN 14.9 g/dl (12.0-15.5); LYMPH # 1.7 10^3/uL (1.5-5.0); LYMPH % 21.8 % (24.0-44.0); MEAN CORPUSCULAR HEMOGLOBIN 28.5 pg (27.0-33.0); MEAN CORPUSCULAR HGB CONC 32.9 g/dl (32.0-36.5); MEAN CORPUSCULAR VOLUME 86.8 fl (80.0-96.0); MONO # 0.6 10^3/uL (0.0-0.8); MONO % 7.5 % (0.0-5.0); NEUTROPHILS # 5.4 10^3/uL (1.5-8.5); PLATELET COUNT, AUTOMATED 166 10^3/uL (150-450); RED BLOOD COUNT 5.22 10^6/uL (4.00-5.40); WHITE BLOOD COUNT 7.7 10^3/uL (4.0-10.0)
[2019-11-03 14:26] LABS: ALBUMIN 3.6 GM/DL (3.2-5.2); ALT/SGPT 39 U/L (12-78); BILIRUBIN,TOTAL 0.5 MG/DL (0.2-1.0); BLOOD UREA NITROGEN 13 MG/DL (7-18); CALCIUM LEVEL 8.9 MG/DL (8.5-10.1); CARBON DIOXIDE LEVEL 23 MEQ/L (21-32); CHLORIDE LEVEL 107 MEQ/L (98-107); CHOLESTEROL LEVEL 258 MG/DL (<200); CHOLESTEROL RISK RATIO 7.166 (<5); CREATININE FOR GFR 0.79 MG/DL (0.55-1.30); FREE T4 1.21 NG/DL (0.76-1.46); GLOMERULAR FILTRATION RATE > 60.0 (>58); GLUCOSE, FASTING 116 MG/DL (70-100); HDL CHOLESTEROL 36 MG/DL (>40); NON-HDL-C 222 MG/DL; POTASSIUM SERUM 3.9 MEQ/L (3.5-5.1); SODIUM LEVEL 139 MEQ/L (136-145); TOTAL 25(OH) VITAMIN D 12.3 NG/ML (30.0-100.0); TOTAL PROTEIN 7.2 GM/DL (6.4-8.2); TRIGLYCERIDES LEVEL 527 MG/DL (<150)
[2019-11-03 14:37] LABS: HEMOGLOBIN A1c 5.5 %
[2019-11-03 18:42] LABS: AMORPHOUS SEDIMENT SMALL (NEGATIVE); APPEARANCE, URINE HAZY (CLEAR); BACTERIA, URINE AUTO 2+ (NEGATIVE); BILIRUBIN, URINE AUTO NEGATIVE (NEGATIVE); BLOOD, URINE BLOOD NEGATIVE (NEGATIVE); COLOR, URINE YELLOW (YELLOW); GLUCOSE, URINE (UA) AUTO NEGATIVE (NEGATIVE); KETONE, URINE AUTO NEGATIVE (NEGATIVE); LEUKOCYTE ESTERASE, URINE AUTO 2+ (NEGATIVE); MUCUS, URINE SMALL (NEGATIVE); NITRITE, URINE AUTO NEGATIVE (NEGATIVE); PROTEIN, URINE AUTO NEGATIVE (NEGATIVE); RBC, URINE AUTO 0 /HPF (0-3); SPECIFIC GRAVITY URINE AUTO 1.005 (1.002-1.035); SQUAMOUS EPITHELIAL CELL UR AU 4 /HPF (0-6); UROBILINOGEN, URINE AUTO 0.2 mg/dL (0.0-2.0); WBC, URINE AUTO 6 /HPF (0-3)
== END ==
LOC: M PLALAB 10:06
PROVIDERS: ATTEND Nurse Practitioner Family
DX: E78.5 Hyperlipidemia, unspecified (principal); Z13.9 Encounter for screening, unspecified; F32.9 Major depressive disorder, single episode, unspecified; E66.9 Obesity, unspecified; E55.9 Vitamin D deficiency, unspecified

== ENCOUNTER → 2019-11-05 | Outpatient (REF) | payer OTHER, MEDICAID ==
[2019-11-05 18:46] LABS: AMORPHOUS SEDIMENT MODERATE (NEGATIVE); APPEARANCE, URINE TURBID (CLEAR); BACTERIA, URINE AUTO NEGATIVE (NEGATIVE); BILIRUBIN, URINE AUTO NEGATIVE (NEGATIVE); BLOOD, URINE BLOOD NEGATIVE (NEGATIVE); CALCIUM OXALATE CRYSTALS MODERATE; COLOR, URINE YELLOW (YELLOW); GLUCOSE, URINE (UA) AUTO NEGATIVE (NEGATIVE); KETONE, URINE AUTO NEGATIVE (NEGATIVE); LEUKOCYTE ESTERASE, URINE AUTO 1+ (NEGATIVE); MUCUS, URINE SMALL (NEGATIVE); NITRITE, URINE AUTO NEGATIVE (NEGATIVE); PROTEIN, URINE AUTO 1+ mg/dL (NEGATIVE); RBC, URINE AUTO 0 /HPF (0-3); SPECIFIC GRAVITY URINE AUTO 1.028 (1.002-1.035); SQUAMOUS EPITHELIAL CELL UR AU 3 /HPF (0-6); UROBILINOGEN, URINE AUTO 0.2 mg/dL (0.0-2.0); WBC, URINE AUTO 0 /HPF (0-3)
== END ==
LOC: M LAB REF 18:13
PROVIDERS: ATTEND Nurse Practitioner Family
DX: N39.0 Urinary tract infection, site not specified (principal); Z13.9 Encounter for screening, unspecified

== ENCOUNTER → 2020-01-26 | Outpatient (CLI) | payer OTHER ==
[2020-01-26 14:21] LABS: BASO % 0.3 % (0.0-1.0); HEMATOCRIT 47.3 % (36.0-47.0); HEMOGLOBIN 15.7 g/dl (12.0-15.5); LYMPH % 22.4 % (24.0-44.0); MEAN CORPUSCULAR HEMOGLOBIN 29.4 pg (27.0-33.0); MEAN CORPUSCULAR HGB CONC 33.2 g/dl (32.0-36.5); MEAN CORPUSCULAR VOLUME 88.6 fl (80.0-96.0); MONO # 0.7 10^3/uL (0.0-0.8); MONO % 8.2 % (0.0-5.0); NEUTROPHILS # 6.2 10^3/uL (1.5-8.5); NEUTROPHILS % 68.8 % (36.0-66.0); PLATELET COUNT, AUTOMATED 190 10^3/uL (150-450); RED BLOOD COUNT 5.34 10^6/uL (4.00-5.40); WHITE BLOOD COUNT 9.1 10^3/uL (4.0-10.0)
== END ==
LOC: M PLALAB 11:39
PROVIDERS: ATTEND Psychiatry & Neurology Psychiatry
DX: Z79.899 Other long term (current) drug therapy (principal)

== ENCOUNTER → 2020-02-27 | Outpatient (CLI) | payer OTHER, MEDICAID ==
[2020-02-27 13:46] LABS: BASO % 0.3 % (0.0-1.0); EOS % 0.1 % (0.0-3.0); HEMATOCRIT 45.7 % (36.0-47.0); HEMOGLOBIN 14.9 g/dl (12.0-15.5); LYMPH # 1.5 10^3/uL (1.5-5.0); LYMPH % 20.1 % (24.0-44.0); MEAN CORPUSCULAR HEMOGLOBIN 28.7 pg (27.0-33.0); MEAN CORPUSCULAR HGB CONC 32.6 g/dl (32.0-36.5); MEAN CORPUSCULAR VOLUME 88.1 fl (80.0-96.0); MONO # 0.6 10^3/uL (0.0-0.8); MONO % 8.3 % (0.0-5.0); NEUTROPHILS # 5.4 10^3/uL (1.5-8.5); NEUTROPHILS % 70.9 % (36.0-66.0); PLATELET COUNT, AUTOMATED 168 10^3/uL (150-450); RED BLOOD COUNT 5.19 10^6/uL (4.00-5.40); WHITE BLOOD COUNT 7.6 10^3/uL (4.0-10.0)
== END ==
LOC: M PLALAB 09:12
PROVIDERS: ATTEND Psychiatry & Neurology Psychiatry
DX: Z51.81 Encounter for therapeutic drug level monitoring (principal); Z79.899 Other long term (current) drug therapy

== ENCOUNTER → 2020-03-02 | Outpatient (CLI) | payer OTHER, MEDICAID ==
[2020-03-02 14:18] LABS: BASO % 0.6 % (0.0-1.0); EOS % 0.1 % (0.0-3.0); HEMATOCRIT 46.3 % (36.0-47.0); HEMOGLOBIN 15.6 g/dl (12.0-15.5); LYMPH % 28.7 % (24.0-44.0); MEAN CORPUSCULAR HEMOGLOBIN 30.1 pg (27.0-33.0); MEAN CORPUSCULAR HGB CONC 33.7 g/dl (32.0-36.5); MEAN CORPUSCULAR VOLUME 89.2 fl (80.0-96.0); MONO # 0.7 10^3/uL (0.0-0.8); NEUTROPHILS # 4.2 10^3/uL (1.5-8.5); NEUTROPHILS % 60.3 % (36.0-66.0); PLATELET COUNT, AUTOMATED 172 10^3/uL (150-450); RED BLOOD COUNT 5.19 10^6/uL (4.00-5.40); WHITE BLOOD COUNT 6.9 10^3/uL (4.0-10.0)
[2020-03-02 14:43] LABS: HEMOGLOBIN A1c 5.1 %
[2020-03-02 14:58] LABS: ALBUMIN 3.5 GM/DL (3.2-5.2); ALT/SGPT 39 U/L (12-78); BILIRUBIN,TOTAL 0.6 MG/DL (0.2-1.0); BLOOD UREA NITROGEN 10 MG/DL (7-18); CALCIUM LEVEL 9.3 MG/DL (8.5-10.1); CARBON DIOXIDE LEVEL 24 MEQ/L (21-32); CHLORIDE LEVEL 108 MEQ/L (98-107); CHOLESTEROL LEVEL 252 MG/DL (<200); CHOLESTEROL RISK RATIO 6.146 (<5); GLOMERULAR FILTRATION RATE > 60.0 (>58); GLUCOSE, FASTING 100 MG/DL (70-100); HDL CHOLESTEROL 41 MG/DL (>40); LDL CHOLESTEROL 142 MG/DL (<100); NON-HDL-C 211 MG/DL; SODIUM LEVEL 140 MEQ/L (136-145); TOTAL PROTEIN 7.2 GM/DL (6.4-8.2); TRIGLYCERIDES LEVEL 345 MG/DL (<150)
== END ==
LOC: M PLALAB 09:02
PROVIDERS: ATTEND Nurse Practitioner Family
DX: R73.03 Prediabetes (principal); Z13.9 Encounter for screening, unspecified; E78.5 Hyperlipidemia, unspecified; E66.9 Obesity, unspecified

== ENCOUNTER → 2020-03-29 | Outpatient (CLI) | payer OTHER, MEDICAID ==
[2020-03-29 13:05] LABS: BASO % 0.4 % (0.0-1.0); HEMATOCRIT 44.7 % (36.0-47.0); HEMOGLOBIN 14.7 g/dl (12.0-15.5); LYMPH # 1.6 10^3/uL (1.5-5.0); LYMPH % 22.1 % (24.0-44.0); MEAN CORPUSCULAR HGB CONC 32.9 g/dl (32.0-36.5); MEAN CORPUSCULAR VOLUME 88.2 fl (80.0-96.0); MONO # 0.6 10^3/uL (0.0-0.8); MONO % 7.4 % (0.0-5.0); NEUTROPHILS # 5.2 10^3/uL (1.5-8.5); NEUTROPHILS % 69.8 % (36.0-66.0); PLATELET COUNT, AUTOMATED 144 10^3/uL (150-450); RED BLOOD COUNT 5.07 10^6/uL (4.00-5.40); WHITE BLOOD COUNT 7.4 10^3/uL (4.0-10.0)
== END ==
LOC: M PLALAB 09:35
PROVIDERS: ATTEND Psychiatry & Neurology Psychiatry
DX: Z79.899 Other long term (current) drug therapy (principal)

== ENCOUNTER → 2020-04-27 | Outpatient (CLI) | payer OTHER, MEDICAID ==
[2020-04-27 14:14] LABS: BASO % 0.4 % (0.0-1.0); HEMATOCRIT 45.7 % (36.0-47.0); HEMOGLOBIN 14.7 g/dl (12.0-15.5); LYMPH # 1.9 10^3/uL (1.5-5.0); LYMPH % 23.3 % (24.0-44.0); MEAN CORPUSCULAR HEMOGLOBIN 28.4 pg (27.0-33.0); MEAN CORPUSCULAR HGB CONC 32.2 g/dl (32.0-36.5); MEAN CORPUSCULAR VOLUME 88.4 fl (80.0-96.0); MONO # 0.7 10^3/uL (0.0-0.8); MONO % 8.8 % (0.0-5.0); NEUTROPHILS # 5.3 10^3/uL (1.5-8.5); PLATELET COUNT, AUTOMATED 157 10^3/uL (150-450); RED BLOOD COUNT 5.17 10^6/uL (4.00-5.40)
== END ==
LOC: M PLALAB 10:33
PROVIDERS: ATTEND Psychiatry & Neurology Psychiatry
DX: Z79.899 Other long term (current) drug therapy (principal)

== ENCOUNTER → 2020-06-01 | Outpatient (CLI) | payer OTHER, MEDICAID ==
[2020-06-01 19:47] LABS: BASO % 0.5 % (0.0-1.0); EOS % 0.1 % (0.0-3.0); HEMATOCRIT 46.7 % (36.0-47.0); HEMOGLOBIN 15.3 g/dl (12.0-15.5); LYMPH # 2.2 10^3/uL (1.5-5.0); LYMPH % 26.6 % (24.0-44.0); MEAN CORPUSCULAR HEMOGLOBIN 28.5 pg (27.0-33.0); MEAN CORPUSCULAR HGB CONC 32.8 g/dl (32.0-36.5); MEAN CORPUSCULAR VOLUME 87.1 fl (80.0-96.0); MONO # 0.8 10^3/uL (0.0-0.8); MONO % 9.8 % (0.0-5.0); NEUTROPHILS # 5.2 10^3/uL (1.5-8.5); NEUTROPHILS % 62.6 % (36.0-66.0); PLATELET COUNT, AUTOMATED 184 10^3/uL (150-450); RED BLOOD COUNT 5.36 10^6/uL (4.00-5.40); WHITE BLOOD COUNT 8.4 10^3/uL (4.0-10.0)
== END ==
LOC: M PLALAB 15:28
PROVIDERS: ATTEND Psychiatry & Neurology Psychiatry
DX: Z51.81 Encounter for therapeutic drug level monitoring (principal); Z79.899 Other long term (current) drug therapy

== ENCOUNTER → 2020-06-22 | Outpatient (CLI) | payer OTHER, MEDICAID ==
[2020-06-22 15:29] LABS: BASO % 0.4 % (0.0-1.0); EOS % 0.1 % (0.0-3.0); HEMATOCRIT 45.1 % (36.0-47.0); HEMOGLOBIN 14.8 g/dl (12.0-15.5); LYMPH % 24.6 % (24.0-44.0); MEAN CORPUSCULAR HGB CONC 32.8 g/dl (32.0-36.5); MEAN CORPUSCULAR VOLUME 88.3 fl (80.0-96.0); MONO # 0.7 10^3/uL (0.0-0.8); MONO % 9.1 % (0.0-5.0); NEUTROPHILS # 5.3 10^3/uL (1.5-8.5); NEUTROPHILS % 65.4 % (36.0-66.0); PLATELET COUNT, AUTOMATED 190 10^3/uL (150-450); RED BLOOD COUNT 5.11 10^6/uL (4.00-5.40); WHITE BLOOD COUNT 8.2 10^3/uL (4.0-10.0)
== END ==
LOC: M PLALAB 13:03
PROVIDERS: ATTEND Psychiatry & Neurology Psychiatry
DX: Z51.81 Encounter for therapeutic drug level monitoring (principal); Z79.899 Other long term (current) drug therapy

== ENCOUNTER → 2020-08-10 | Outpatient (REF) | payer OTHER, MEDICAID ==
[2020-08-10 16:02] LABS: BASO % 0.4 % (0.0-1.0); EOS % 0.1 % (0.0-3.0); HEMATOCRIT 46.6 % (36.0-47.0); HEMOGLOBIN 15.4 g/dl (12.0-15.5); LYMPH % 24.4 % (24.0-44.0); MEAN CORPUSCULAR HEMOGLOBIN 29.2 pg (27.0-33.0); MEAN CORPUSCULAR VOLUME 88.3 fl (80.0-96.0); MONO # 0.7 10^3/uL (0.0-0.8); MONO % 8.1 % (2.0-8.0); NEUTROPHILS # 5.5 10^3/uL (1.5-8.5); NEUTROPHILS % 66.6 % (36.0-66.0); PLATELET COUNT, AUTOMATED 189 10^3/uL (150-450); RED BLOOD COUNT 5.28 10^6/uL (4.00-5.40); WHITE BLOOD COUNT 8.2 10^3/uL (4.0-10.0)
== END ==
LOC: M PLALAB 15:08
PROVIDERS: ATTEND Psychiatry & Neurology Psychiatry
DX: Z79.899 Other long term (current) drug therapy (principal)

== ENCOUNTER → 2020-09-14 | Outpatient (CLI) | payer OTHER, MEDICAID ==
[2020-09-14 14:42] LABS: BASO % 0.4 % (0.0-1.0); HEMATOCRIT 45.5 % (36.0-47.0); HEMOGLOBIN 14.9 g/dl (12.0-15.5); LYMPH # 1.8 10^3/uL (1.5-5.0); LYMPH % 19.7 % (24.0-44.0); MEAN CORPUSCULAR HGB CONC 32.7 g/dl (32.0-36.5); MEAN CORPUSCULAR VOLUME 88.7 fl (80.0-96.0); MONO % 10.5 % (2.0-8.0); NEUTROPHILS # 6.3 10^3/uL (1.5-8.5); NEUTROPHILS % 69.1 % (36.0-66.0); PLATELET COUNT, AUTOMATED 189 10^3/uL (150-450); RED BLOOD COUNT 5.13 10^6/uL (4.00-5.40); WHITE BLOOD COUNT 9.1 10^3/uL (4.0-10.0)
== END ==
LOC: M PLALAB 09:59
PROVIDERS: ATTEND Psychiatry & Neurology Psychiatry
DX: Z79.899 Other long term (current) drug therapy (principal)

== ENCOUNTER → 2020-10-18 | Outpatient (REF) | payer OTHER, MEDICAID ==
[2020-10-18 11:06] LABS: BASO % 0.4 % (0.0-1.0); HEMATOCRIT 44.3 % (36.0-47.0); HEMOGLOBIN 14.4 g/dl (12.0-15.5); LYMPH # 1.5 10^3/uL (1.5-5.0); LYMPH % 20.3 % (24.0-44.0); MEAN CORPUSCULAR HEMOGLOBIN 28.9 pg (27.0-33.0); MEAN CORPUSCULAR HGB CONC 32.5 g/dl (32.0-36.5); MONO # 0.7 10^3/uL (0.0-0.8); MONO % 9.4 % (2.0-8.0); NEUTROPHILS # 5.2 10^3/uL (1.5-8.5); NEUTROPHILS % 69.6 % (36.0-66.0); PLATELET COUNT, AUTOMATED 176 10^3/uL (150-450); RED BLOOD COUNT 4.98 10^6/uL (4.00-5.40); WHITE BLOOD COUNT 7.5 10^3/uL (4.0-10.0)
== END ==
LOC: M PLALAB 09:53
PROVIDERS: ATTEND Psychiatry & Neurology Psychiatry
DX: F25.0 Schizoaffective disorder, bipolar type (principal)

== ENCOUNTER → 2020-11-15 | Outpatient (REF) | payer OTHER, MEDICAID ==
[2020-11-15 12:08] LABS: CHOLESTEROL RISK RATIO 5.585 (<5)
== END ==
LOC: M PLALAB 10:22
PROVIDERS: ATTEND Nurse Practitioner Family
DX: R73.03 Prediabetes (principal); E78.5 Hyperlipidemia, unspecified; E56.9 Vitamin deficiency, unspecified

== ENCOUNTER → 2020-11-23 | Outpatient (CLI) | payer OTHER, MEDICAID ==
[2020-11-23 10:37] LABS: BASO % 0.4 % (0.0-1.0); EOS % 0.1 % (0.0-3.0); HEMATOCRIT 43.7 % (36.0-47.0); HEMOGLOBIN 14.4 g/dl (12.0-15.5); LYMPH # 1.7 10^3/uL (1.5-5.0); MEAN CORPUSCULAR HEMOGLOBIN 28.7 pg (27.0-33.0); MEAN CORPUSCULAR VOLUME 87.2 fl (80.0-96.0); MONO # 0.7 10^3/uL (0.0-0.8); MONO % 8.5 % (2.0-8.0); NEUTROPHILS # 5.5 10^3/uL (1.5-8.5); NEUTROPHILS % 69.7 % (36.0-66.0); PLATELET COUNT, AUTOMATED 195 10^3/uL (150-450); RED BLOOD COUNT 5.01 10^6/uL (4.00-5.40); WHITE BLOOD COUNT 7.9 10^3/uL (4.0-10.0)
== END ==
LOC: M PLALAB 09:19
DX: F25.0 Schizoaffective disorder, bipolar type (principal)

== ENCOUNTER → 2020-12-28 | Outpatient (CLI) | payer OTHER, MEDICAID ==
[2020-12-28 13:32] LABS: BASO % 0.4 % (0.0-1.0); EOS % 0.1 % (0.0-3.0); HEMATOCRIT 43.3 % (36.0-47.0); HEMOGLOBIN 14.3 g/dl (12.0-15.5); LYMPH # 2.4 10^3/uL (1.5-5.0); LYMPH % 25.8 % (24.0-44.0); MEAN CORPUSCULAR HEMOGLOBIN 28.9 pg (27.0-33.0); MEAN CORPUSCULAR VOLUME 87.5 fl (80.0-96.0); MONO # 0.7 10^3/uL (0.0-0.8); MONO % 7.5 % (2.0-8.0); NEUTROPHILS # 6.1 10^3/uL (1.5-8.5); NEUTROPHILS % 65.9 % (36.0-66.0); PLATELET COUNT, AUTOMATED 228 10^3/uL (150-450); RED BLOOD COUNT 4.95 10^6/uL (4.00-5.40); WHITE BLOOD COUNT 9.2 10^3/uL (4.0-10.0)
== END ==
LOC: M PLALAB 10:23
DX: F25.0 Schizoaffective disorder, bipolar type (principal)

== ENCOUNTER → 2021-02-01 | Outpatient (CLI) | payer MEDICAID, OTHER ==
[2021-02-01 13:50] LABS: BASO % 0.5 % (0.0-1.0); HEMATOCRIT 43.4 % (36.0-47.0); HEMOGLOBIN 14.4 g/dl (12.0-15.5); LYMPH # 1.8 10^3/uL (1.5-5.0); MEAN CORPUSCULAR HEMOGLOBIN 28.7 pg (27.0-33.0); MEAN CORPUSCULAR HGB CONC 33.2 g/dl (32.0-36.5); MEAN CORPUSCULAR VOLUME 86.5 fl (80.0-96.0); MONO % 10.9 % (2.0-8.0); NEUTROPHILS # 5.9 10^3/uL (1.5-8.5); NEUTROPHILS % 67.3 % (36.0-66.0); PLATELET COUNT, AUTOMATED 193 10^3/uL (150-450); RED BLOOD COUNT 5.02 10^6/uL (4.00-5.40); WHITE BLOOD COUNT 8.7 10^3/uL (4.0-10.0)
== END ==
LOC: M PLALAB 10:33
PROVIDERS: ATTEND Psychiatry & Neurology Psychiatry
DX: F25.0 Schizoaffective disorder, bipolar type (principal)

== ENCOUNTER → 2021-03-08 | Outpatient (CLI) | payer OTHER, MEDICAID ==
[2021-03-08 13:36] LABS: BASO % 0.4 % (0.0-1.0); EOS % 0.1 % (0.0-3.0); HEMATOCRIT 43.5 % (36.0-47.0); HEMOGLOBIN 14.3 g/dl (12.0-15.5); LYMPH # 1.9 10^3/uL (1.5-5.0); LYMPH % 19.5 % (24.0-44.0); MEAN CORPUSCULAR HEMOGLOBIN 28.5 pg (27.0-33.0); MEAN CORPUSCULAR HGB CONC 32.9 g/dl (32.0-36.5); MEAN CORPUSCULAR VOLUME 86.7 fl (80.0-96.0); MONO # 0.8 10^3/uL (0.0-0.8); MONO % 8.6 % (2.0-8.0); NEUTROPHILS # 6.8 10^3/uL (1.5-8.5); PLATELET COUNT, AUTOMATED 222 10^3/uL (150-450); RED BLOOD COUNT 5.02 10^6/uL (4.00-5.40); WHITE BLOOD COUNT 9.6 10^3/uL (4.0-10.0)
== END ==
LOC: M PLALAB 10:14
PROVIDERS: ATTEND Psychiatry & Neurology Psychiatry
DX: F25.0 Schizoaffective disorder, bipolar type (principal)

== ENCOUNTER → 2021-04-11 | Outpatient (CLI) | payer OTHER ==
[2021-04-11 16:15] LABS: BASO % 0.3 % (0.0-1.0); HEMATOCRIT 46.8 % (36.0-47.0); HEMOGLOBIN 15.2 g/dl (12.0-15.5); LYMPH # 2.3 10^3/uL (1.5-5.0); LYMPH % 22.7 % (24.0-44.0); MEAN CORPUSCULAR HEMOGLOBIN 28.3 pg (27.0-33.0); MEAN CORPUSCULAR HGB CONC 32.5 g/dl (32.0-36.5); MEAN CORPUSCULAR VOLUME 87.2 fl (80.0-96.0); MONO # 0.9 10^3/uL (0.0-0.8); MONO % 9.1 % (2.0-8.0); NEUTROPHILS # 6.7 10^3/uL (1.5-8.5); NEUTROPHILS % 67.6 % (36.0-66.0); PLATELET COUNT, AUTOMATED 202 10^3/uL (150-450); RED BLOOD COUNT 5.37 10^6/uL (4.00-5.40); WHITE BLOOD COUNT 9.9 10^3/uL (4.0-10.0)
== END ==
LOC: M PLALAB 13:46
PROVIDERS: ATTEND Psychiatry & Neurology Psychiatry
DX: F25.0 Schizoaffective disorder, bipolar type (principal)

== ENCOUNTER → 2021-05-09 | Outpatient (CLI) | payer OTHER ==
[2021-05-09 15:07] LABS: BASO % 0.4 % (0.0-1.0); EOS % 0.1 % (0.0-3.0); HEMATOCRIT 42.6 % (36.0-47.0); HEMOGLOBIN 13.9 g/dl (12.0-15.5); LYMPH % 21.1 % (24.0-44.0); MEAN CORPUSCULAR HEMOGLOBIN 28.2 pg (27.0-33.0); MEAN CORPUSCULAR HGB CONC 32.6 g/dl (32.0-36.5); MEAN CORPUSCULAR VOLUME 86.4 fl (80.0-96.0); MONO # 0.8 10^3/uL (0.0-0.8); MONO % 8.9 % (2.0-8.0); NEUTROPHILS # 6.4 10^3/uL (1.5-8.5); NEUTROPHILS % 69.1 % (36.0-66.0); PLATELET COUNT, AUTOMATED 202 10^3/uL (150-450); RED BLOOD COUNT 4.93 10^6/uL (4.00-5.40); WHITE BLOOD COUNT 9.3 10^3/uL (4.0-10.0)
== END ==
LOC: M PLALAB 13:25
PROVIDERS: ATTEND Psychiatry & Neurology Psychiatry
DX: F25.0 Schizoaffective disorder, bipolar type (principal)

== ENCOUNTER → 2021-06-06 | Outpatient (CLI) | payer OTHER ==
[2021-06-06 15:31] LABS: BASO # 0.1 10^3/uL (0.0-0.2); BASO % 0.5 % (0.0-1.0); EOS % 0.1 % (0.0-3.0); HEMATOCRIT 43.5 % (36.0-47.0); HEMOGLOBIN 14.3 g/dl (12.0-15.5); LYMPH # 2.3 10^3/uL (1.5-5.0); LYMPH % 23.4 % (24.0-44.0); MEAN CORPUSCULAR HEMOGLOBIN 28.2 pg (27.0-33.0); MEAN CORPUSCULAR HGB CONC 32.9 g/dl (32.0-36.5); MEAN CORPUSCULAR VOLUME 85.8 fl (80.0-96.0); MONO # 1.1 10^3/uL (0.0-0.8); NEUTROPHILS # 6.4 10^3/uL (1.5-8.5); NEUTROPHILS % 64.7 % (36.0-66.0); PLATELET COUNT, AUTOMATED 204 10^3/uL (150-450); RED BLOOD COUNT 5.07 10^6/uL (4.00-5.40); WHITE BLOOD COUNT 9.9 10^3/uL (4.0-10.0)
== END ==
LOC: M PLALAB 13:18
PROVIDERS: ATTEND Psychiatry & Neurology Psychiatry
DX: F25.0 Schizoaffective disorder, bipolar type (principal)

== ENCOUNTER → 2021-06-28 | Outpatient (CLI) | payer OTHER | LOC: M PLALAB 13:59 | PROVIDERS: ATTEND Psychiatry & Neurology Psychiatry | DX: F25.0 Schizoaffective disorder, bipolar type (principal) ==

== ENCOUNTER → 2021-08-16 | Outpatient (CLI) | payer OTHER ==
[2021-08-16 15:04] LABS: BASO % 0.4 % (0.0-1.0); EOS % 0.1 % (0.0-3.0); HEMATOCRIT 43.5 % (36.0-47.0); HEMOGLOBIN 14.2 g/dl (12.0-15.5); LYMPH # 2.3 10^3/uL (1.5-5.0); LYMPH % 25.2 % (24.0-44.0); MEAN CORPUSCULAR HEMOGLOBIN 28.6 pg (27.0-33.0); MEAN CORPUSCULAR HGB CONC 32.6 g/dl (32.0-36.5); MEAN CORPUSCULAR VOLUME 87.7 fl (80.0-96.0); MONO # 0.6 10^3/uL (0.0-0.8); MONO % 7.1 % (2.0-8.0); PLATELET COUNT, AUTOMATED 202 10^3/uL (150-450); RED BLOOD COUNT 4.96 10^6/uL (4.00-5.40)
== END ==
LOC: M PLALAB 12:18
PROVIDERS: ATTEND Psychiatry & Neurology Psychiatry
DX: F25.0 Schizoaffective disorder, bipolar type (principal)

== ENCOUNTER → 2021-11-09 | Outpatient (CLI) | payer OTHER, MEDICAID ==
[2021-11-09 13:20] LABS: BASO # 0.1 10^3/uL (0.0-0.2); BASO % 0.5 % (0.0-1.0); EOS % 0.1 % (0.0-3.0); HEMATOCRIT 45.1 % (36.0-47.0); HEMOGLOBIN 14.9 g/dl (12.0-15.5); LYMPH # 1.9 10^3/uL (1.5-5.0); LYMPH % 17.1 % (24.0-44.0); MEAN CORPUSCULAR HEMOGLOBIN 28.2 pg (27.0-33.0); MEAN CORPUSCULAR VOLUME 85.4 fl (80.0-96.0); MONO % 8.8 % (2.0-8.0); NEUTROPHILS # 7.9 10^3/uL (1.5-8.5); PLATELET COUNT, AUTOMATED 202 10^3/uL (150-450); RED BLOOD COUNT 5.28 10^6/uL (4.00-5.40); WHITE BLOOD COUNT 10.9 10^3/uL (4.0-10.0)
== END ==
LOC: M PLALAB 09:48
DX: F25.0 Schizoaffective disorder, bipolar type (principal)

== ENCOUNTER → 2022-01-25 | Outpatient (CLI) | payer OTHER, MEDICAID ==
[2022-01-25 10:24] LABS: BASO % 0.5 % (0.0-1.0); EOS # 0.1 10^3/uL (0.0-0.5); EOS % 0.8 % (0.0-3.0); HEMATOCRIT 41.1 % (36.0-47.0); HEMOGLOBIN 13.5 g/dl (12.0-15.5); LYMPH # 1.7 10^3/uL (1.5-5.0); LYMPH % 19.9 % (24.0-44.0); MEAN CORPUSCULAR HEMOGLOBIN 28.8 pg (27.0-33.0); MEAN CORPUSCULAR HGB CONC 32.8 g/dl (32.0-36.5); MEAN CORPUSCULAR VOLUME 87.6 fl (80.0-96.0); MONO # 0.6 10^3/uL (0.0-0.8); MONO % 7.6 % (2.0-8.0); NEUTROPHILS # 5.9 10^3/uL (1.5-8.5); NEUTROPHILS % 70.7 % (36.0-66.0); PLATELET COUNT, AUTOMATED 194 10^3/uL (150-450); RED BLOOD COUNT 4.69 10^6/uL (4.00-5.40); WHITE BLOOD COUNT 8.3 10^3/uL (4.0-10.0)
== END ==
LOC: M PLALAB 08:35
PROVIDERS: ATTEND Psychiatry & Neurology Psychiatry
DX: F25.0 Schizoaffective disorder, bipolar type (principal)

== ENCOUNTER 2022-05-16 11:51 | Inpatient (IN) | payer MEDICAID, OTHER ==
[~2022-05-16] VITALS: Ht 170.2 cm; Wt 113.0 kg
[~2022-05-16 11:51] MED LIST changes: -CLOZ100T2 PO; +CLOZ100T5 PO
[2022-05-16 13:20] LABS: HEMATOCRIT 39.1 % (36.0-47.0); HEMOGLOBIN 12.1 g/dl (12.0-15.5); MEAN CORPUSCULAR HEMOGLOBIN 26.2 pg (27.0-33.0); MEAN CORPUSCULAR HGB CONC 30.9 g/dl (32.0-36.5); MEAN CORPUSCULAR VOLUME 84.8 fl (80.0-96.0); PLATELET COUNT, AUTOMATED 268 10^3/uL (150-450); RED BLOOD COUNT 4.61 10^6/uL (4.00-5.40); WHITE BLOOD COUNT 12.4 10^3/uL (4.0-10.0)
[2022-05-16 13:40] LABS: ETHYL ALCOHOL (ETHANOL) 0.003 % (0.000-0.010)
[2022-05-16 13:42] LABS: ACETAMINOPHEN LEVEL < 2.0 UG/ML (10.0-20.0); BILIRUBIN,DIRECT 0.1 MG/DL (<0.4); SALICYLATE LEVEL < 3.0 MG/DL (<30)
[2022-05-16 13:44] LABS: THYROID STIMULATING HORMONE 2.453 uIU/ML (0.55-4.78)
[2022-05-16 13:51] LABS: HCG, SERUM QUALITATIVE NEGATIVE (NEGATIVE)
[2022-05-16 13:53] LABS: ALBUMIN 3.8 G/DL (3.2-5.2); ALKALINE PHOSPHATASE 83 U/L (46-116); ALT/SGPT 23 U/L (7.0-40); AST/SGOT 28 U/L (<34); BILIRUBIN,TOTAL 0.5 MG/DL (0.3-1.2); BLOOD UREA NITROGEN 12 MG/DL (9-23); CALCIUM LEVEL 9.1 MG/DL (8.5-10.1); CARBON DIOXIDE LEVEL 21 MMOL/L (20-31); CHLORIDE LEVEL 105 MMOL/L (98-107); CREATININE FOR GFR 0.63 MG/DL (0.55-1.30); GLOMERULAR FILTRATION RATE > 60.0 (>58); GLUCOSE, FASTING 115 MG/DL (60-100); SODIUM LEVEL 137 MMOL/L (136-145)
[2022-05-16 14:07] LABS: RSV AMPLIFICATION NEGATIVE (NEGATIVE)
[2022-05-16] MEDS ORDERED: traZODone 50 MG TAB PO PRN (17:55)
[2022-05-16] MEDS ORDERED: MAALOX 30 ML SUSP *UDC PO PRN (17:55)
[2022-05-16] MEDS ORDERED: MOM 30ML SUSPENSION UDC PO PRN (17:55)
[2022-05-16] MEDS ORDERED: ACETAMINOPHEN TAB 650MG DOSE (2X325MG) PO PRN (17:55)
[2022-05-16 18:57] VITALS: BP 147/90
[2022-05-16] MEDS ORDERED: NYSTATIN 100,000 UNITS/GM TOPICAL PWD 15GM TOP SCH (21:00)
[2022-05-16] MEDS: OLANZapine ORAL DISINTEGRATING TAB 5MG PO PRN (23:46)
[2022-05-17] MEDS ORDERED: HALOPERIDOL 5MG/ML 1ML VIAL IM STA (06:04)
[2022-05-17] MEDS ORDERED: HOME MED LIST COMPLETE! XX SCH (09:00)
[2022-05-17 11:51] LABS: BASO % 0.3 % (0.0-1.0); HEMATOCRIT 37.4 % (36.0-47.0); HEMOGLOBIN 11.7 g/dl (12.0-15.5); LYMPH # 0.8 10^3/uL (1.5-5.0); LYMPH % 5.5 % (24.0-44.0); MEAN CORPUSCULAR HEMOGLOBIN 26.5 pg (27.0-33.0); MEAN CORPUSCULAR HGB CONC 31.3 g/dl (32.0-36.5); MEAN CORPUSCULAR VOLUME 84.8 fl (80.0-96.0); MONO # 1.5 10^3/uL (0.0-0.8); MONO % 9.9 % (2.0-8.0); NEUTROPHILS # 12.3 10^3/uL (1.5-8.5); NEUTROPHILS % 83.8 % (36.0-66.0); PLATELET COUNT, AUTOMATED 264 10^3/uL (150-450); RED BLOOD COUNT 4.41 10^6/uL (4.00-5.40); WHITE BLOOD COUNT 14.6 10^3/uL (4.0-10.0)
[2022-05-17] MEDS: OLANZapine ORAL DISINTEGRATING TAB 5MG PO PRN (13:49)
[2022-05-17] MEDS ORDERED: PALIPERIDONE 3MG ER TAB (INVEGA) PO ONE (14:25)
[2022-05-17] MEDS ORDERED: OLANZapine INTRAMUSCULAR 10MG VIAL IM ONE (15:50)
[2022-05-17] MEDS: NYSTATIN 100,000 UNITS/GM TOPICAL PWD 15GM TOP SCH (21:22)
[2022-05-17] MEDS: PALIPERIDONE 3MG ER TAB (INVEGA) PO SCH (21:22)
[2022-05-18 07:14] LABS: CHOLESTEROL RISK RATIO 3.18 (<5); HDL CHOLESTEROL 47.1 MG/DL (>40); LDL CHOLESTEROL 82.1 MG/DL (<100)
[2022-05-18] MEDS: PALIPERIDONE 3MG ER TAB (INVEGA) PO SCH ×2 (08:54→21:15)
[2022-05-18] MEDS: NYSTATIN 100,000 UNITS/GM TOPICAL PWD 15GM TOP SCH ×2 (09:04→21:16)
[2022-05-18 12:39] LABS: APPEARANCE, URINE MANUAL CLEAR (CLEAR); COLOR, URINE MANUAL YELLOW (YELLOW)
[2022-05-18 12:40] LABS: BILIRUBIN, URINE MANUAL 1+ (NEGATIVE); GLUCOSE, URINE (UA) MANUAL NEGATIVE (NEGATIVE); KETONE, URINE MANUAL 2+ mg/dL (NEGATIVE); NITRITE, URINE MANUAL NEGATIVE (NEGATIVE); PROTEIN, URINE MANUAL TRACE mg/dL (NEGATIVE); SPECIFIC GRAVITY,URINE MANUAL 1.025 (1.002-1.035); UROBILINOGEN, URINE MANUAL NORMAL (NORMAL)
[2022-05-18 12:41] LABS: BLOOD URINE MANUAL POSITIVE (NEGATIVE); LEUKOCYTE ESTERASE, URINE MAN POSITIVE (NEGATIVE)
[2022-05-18 13:06] LABS: RENAL EPITHELIAL CELLS, URINE SMALL AMOUNT /hpf; SQUAMOUS EPITHELIAL CELL URINE MOD AMOUNT /hpf (SMALL AMT); TRANSITIONAL EPI CELLS, URINE SMALL AMOUNT /hpf; URIC ACID CRYSTALS, URINE SMALL AMOUNT /hpf
[2022-05-18 13:07] LABS: BACTERIA, URINE SMALL AMOUNT
[2022-05-18 13:08] LABS: AMORPHOUS SEDIMENT, URINE MOD AMOUNT (NEGATIVE); GRANULAR CAST, URINE 0-1 /lpf; MUCUS, URINE SMALL AMOUNT (NEGATIVE)
[2022-05-18] MEDS: CIPROFLOXACIN 500MG TABLET PO SCH (17:46)
[2022-05-18 18:35] VITALS: BP 100/50
[2022-05-19] MEDS: CIPROFLOXACIN 500MG TABLET PO SCH ×2 (05:43→17:41)
[2022-05-19 06:07] VITALS: BP 117/64
[2022-05-19] MEDS: NYSTATIN 100,000 UNITS/GM TOPICAL PWD 15GM TOP SCH ×2 (08:24→20:18)
[2022-05-19 18:00] VITALS: BP_SYST 125; BP_SYST 175; BP_DIAS 57
[2022-05-20 06:16] VITALS: BP 117/62
[2022-05-20] MEDS: CIPROFLOXACIN 500MG TABLET PO SCH ×2 (06:16→19:24)
[2022-05-20] MEDS: NYSTATIN 100,000 UNITS/GM TOPICAL PWD 15GM TOP SCH ×2 (09:43→20:24)
[2022-05-20 16:55] VITALS: BP 105/59
[2022-05-21] MEDS: CIPROFLOXACIN 500MG TABLET PO SCH ×2 (05:31→17:26)
[2022-05-21 06:14] VITALS: BP 118/72
[2022-05-21] MEDS: NYSTATIN 100,000 UNITS/GM TOPICAL PWD 15GM TOP SCH ×2 (08:40→21:00)
[2022-05-21 11:47] LABS: BASO % 0.7 % (0.0-1.0); EOS # 0.1 10^3/uL (0.0-0.5); EOS % 2.3 % (0.0-3.0); HEMATOCRIT 32.4 % (36.0-47.0); HEMOGLOBIN 10.3 g/dl (12.0-15.5); LYMPH # 1.4 10^3/uL (1.5-5.0); LYMPH % 23.5 % (24.0-44.0); MEAN CORPUSCULAR HEMOGLOBIN 26.8 pg (27.0-33.0); MEAN CORPUSCULAR HGB CONC 31.8 g/dl (32.0-36.5); MEAN CORPUSCULAR VOLUME 84.2 fl (80.0-96.0); MONO # 0.7 10^3/uL (0.0-0.8); MONO % 12.4 % (2.0-8.0); NEUTROPHILS # 3.6 10^3/uL (1.5-8.5); NEUTROPHILS % 60.8 % (36.0-66.0); PLATELET COUNT, AUTOMATED 248 10^3/uL (150-450); RED BLOOD COUNT 3.85 10^6/uL (4.00-5.40)
[2022-05-21 14:41] VITALS: BP 117/58
[2022-05-22] MEDS: CIPROFLOXACIN 500MG TABLET PO SCH (05:31)
[2022-05-22 07:00] VITALS: BP 135/76
[2022-05-22] MEDS: NYSTATIN 100,000 UNITS/GM TOPICAL PWD 15GM TOP SCH ×2 (08:24→21:08)
[2022-05-22 10:09] LABS: BASO % 0.7 % (0.0-1.0); EOS # 0.1 10^3/uL (0.0-0.5); EOS % 1.6 % (0.0-3.0); HEMATOCRIT 30.1 % (36.0-47.0); HEMOGLOBIN 9.2 g/dl (12.0-15.5); LYMPH # 1.2 10^3/uL (1.5-5.0); LYMPH % 22.3 % (24.0-44.0); MEAN CORPUSCULAR HEMOGLOBIN 25.8 pg (27.0-33.0); MEAN CORPUSCULAR HGB CONC 30.6 g/dl (32.0-36.5); MEAN CORPUSCULAR VOLUME 84.6 fl (80.0-96.0); MONO # 0.8 10^3/uL (0.0-0.8); MONO % 13.7 % (2.0-8.0); NEUTROPHILS # 3.3 10^3/uL (1.5-8.5); NEUTROPHILS % 61.2 % (36.0-66.0); PLATELET COUNT, AUTOMATED 208 10^3/uL (150-450); RED BLOOD COUNT 3.56 10^6/uL (4.00-5.40); WHITE BLOOD COUNT 5.5 10^3/uL (4.0-10.0)
[2022-05-22 19:00] VITALS: BP 116/63
[2022-05-23 06:47] VITALS: BP 133/85
[2022-05-23] MEDS ORDERED: NYST10006 TOP (09:02)
[2022-05-23] MEDS ORDERED: CLOZ200T4 PO (09:02)
[2022-05-23] MEDS ORDERED: INVE234I IM (09:02)
[2022-05-23] MEDS: NYSTATIN 100,000 UNITS/GM TOPICAL PWD 15GM TOP SCH (09:11)
[2022-05-24 14:08] LABS: CLOZAPINE 1 180 ng/mL (350-650); CLOZAPINE 2 58 ng/mL (Not Estab.); CLOZAPINE 3 238 ng/mL (.)
== END 2022-05-23 13:00 | disposition home or self-care (01) | DRG 750 ==
LOC: M ED 11:51 → M ED INP 17:55 → M PSY 18:53
PROVIDERS: ADMIT Student in an Organized Health Care Education/Training Program; ATTEND Student in an Organized Health Care Education/Training Program
DX: F25.8 Other schizoaffective disorders (principal); Z91.14 Patient's other noncompliance with medication regimen; D72.829 Elevated white blood cell count, unspecified; Z88.0 Allergy status to penicillin; Z91.040 Latex allergy status; Z79.899 Other long term (current) drug therapy; R00.0 Tachycardia, unspecified

== ENCOUNTER 2022-05-29 13:50 | Inpatient (IN) | payer MEDICAID ==
[~2022-05-29] VITALS: Ht 172.7 cm; Wt 113.6 kg
[~2022-05-29 13:50] MED LIST changes: +CLOZ200T4 PO; +NYST10006 TOP
[2022-05-29 18:04] LABS: HEMATOCRIT 32.7 % (36.0-47.0); HEMOGLOBIN 10.3 g/dl (12.0-15.5); MEAN CORPUSCULAR HEMOGLOBIN 26.5 pg (27.0-33.0); MEAN CORPUSCULAR HGB CONC 31.5 g/dl (32.0-36.5); MEAN CORPUSCULAR VOLUME 84.3 fl (80.0-96.0); PLATELET COUNT, AUTOMATED 257 10^3/uL (150-450); RED BLOOD COUNT 3.88 10^6/uL (4.00-5.40); WHITE BLOOD COUNT 12.1 10^3/uL (4.0-10.0)
[2022-05-29 18:29] LABS: ETHYL ALCOHOL (ETHANOL) 0.003 % (0.000-0.010)
[2022-05-29 18:30] LABS: ACETAMINOPHEN LEVEL < 2.0 UG/ML (10.0-20.0); ALBUMIN 3.3 G/DL (3.2-5.2); ALKALINE PHOSPHATASE 85 U/L (46-116); ALT/SGPT 20 U/L (7.0-40); AST/SGOT 24 U/L (<34); BILIRUBIN,DIRECT 0.2 MG/DL (<0.4); BILIRUBIN,TOTAL 0.7 MG/DL (0.3-1.2); BLOOD UREA NITROGEN 20 MG/DL (9-23); CARBON DIOXIDE LEVEL 23 MMOL/L (20-31); CHLORIDE LEVEL 103 MMOL/L (98-107); CREATININE FOR GFR 0.67 MG/DL (0.55-1.30); GLOMERULAR FILTRATION RATE > 60.0 (>58); GLUCOSE, FASTING 82 MG/DL (60-100); POTASSIUM SERUM 4.1 MMOL/L (3.5-5.1); SALICYLATE LEVEL < 3.0 MG/DL (<30); SODIUM LEVEL 139 MMOL/L (136-145); TOTAL PROTEIN 6.3 G/DL (5.7-8.2)
[2022-05-29 18:32] LABS: THYROID STIMULATING HORMONE 2.227 uIU/ML (0.55-4.78)
[2022-05-29 18:34] LABS: RSV AMPLIFICATION NEGATIVE (NEGATIVE)
[2022-05-29 18:38] LABS: AMPHETAMINES LEVEL URINE NEGATIVE (NEGATIVE); BARBITURATES URINE NEGATIVE (NEGATIVE); BENZODIAZEPINES URINE NEGATIVE (NEGATIVE); COCAINE METABOLITE URINE NEGATIVE (NEGATIVE)
[2022-05-29 18:39] LABS: CANNABINOIDS URINE NEGATIVE (NEGATIVE); METHADONE URINE NEGATIVE (NEGATIVE); OPIATES URINE NEGATIVE (NEGATIVE); PHENCYCLIDINE URINE NEGATIVE (NEGATIVE)
[2022-05-29] MEDS ORDERED: MOM 30ML SUSPENSION UDC PO PRN (19:10)
[2022-05-29] MEDS ORDERED: MAALOX 30 ML SUSP *UDC PO PRN (19:10)
[2022-05-29] MEDS ORDERED: CLOZ100T5 PO (19:35)
[2022-05-29] MEDS ORDERED: NYST1POW9 TOP (19:37)
[2022-05-29] MEDS ORDERED: med rec comment (19:38)
[2022-05-29] MEDS ORDERED: HOME MED LIST COMPLETE! XX SCH (19:40)
[2022-05-29 20:02] LABS: LYMPHOCYTES 6 % (16-44); MONOCYTES 5 % (0-5); NEUTROPHILS 89 % (28-66)
[2022-05-29 20:03] LABS: PLATELET ESTIMATE NORMAL (NORMAL)
[2022-05-29 22:08] VITALS: BP 112/56
[2022-05-30 06:34] VITALS: BP 112/54
[2022-05-30 13:12] LABS: BASO % 0.3 % (0.0-1.0); EOS # 0.2 10^3/uL (0.0-0.5); EOS % 1.4 % (0.0-3.0); HEMOGLOBIN 9.8 g/dl (12.0-15.5); LYMPH # 1.5 10^3/uL (1.5-5.0); LYMPH % 13.4 % (24.0-44.0); MEAN CORPUSCULAR HEMOGLOBIN 25.9 pg (27.0-33.0); MEAN CORPUSCULAR HGB CONC 30.6 g/dl (32.0-36.5); MEAN CORPUSCULAR VOLUME 84.7 fl (80.0-96.0); MONO # 0.7 10^3/uL (0.0-0.8); MONO % 6.5 % (2.0-8.0); NEUTROPHILS # 8.5 10^3/uL (1.5-8.5); NEUTROPHILS % 78.1 % (36.0-66.0); PLATELET COUNT, AUTOMATED 246 10^3/uL (150-450); RED BLOOD COUNT 3.78 10^6/uL (4.00-5.40); WHITE BLOOD COUNT 10.9 10^3/uL (4.0-10.0)
[2022-05-30 16:14] VITALS: BP 118/64
[2022-05-30] MEDS ORDERED: INFLUENZA QUADRIVALENT PF VACCINE 0.5ML SYRINGE IM.IMMUN ONE (21:00)
[2022-05-31 03:49] LABS: URINE PREG TEST NEGATIVE (NEGATIVE)
[2022-05-31 06:28] VITALS: BP 106/55
[2022-05-31] MEDS ORDERED: PALIPERIDONE PAL 234MG/1.5ML INJ (INVEGA)(FREE PSY INPT ONLY) IM ONE (09:00)
[2022-05-31] MEDS: ACETAMINOPHEN TAB 650MG DOSE (2X325MG) PO PRN (09:06)
[2022-05-31] MEDS: NYSTATIN 100,000 UNITS/GM TOPICAL PWD 15GM TOP SCH ×2 (10:17→19:51)
[2022-05-31 16:09] VITALS: BP 116/68
[2022-06-01 06:13] VITALS: BP 113/63
[2022-06-01] MEDS: NYSTATIN 100,000 UNITS/GM TOPICAL PWD 15GM TOP SCH ×2 (08:39→20:09)
[2022-06-01 19:26] VITALS: BP 138/71
[2022-06-02 06:05] VITALS: BP 138/66
[2022-06-02] MEDS: NYSTATIN 100,000 UNITS/GM TOPICAL PWD 15GM TOP SCH ×2 (09:12→21:00)
[2022-06-02 16:33] VITALS: BP 129/61
[2022-06-03 06:30] VITALS: BP 160/84
[2022-06-03] MEDS: NYSTATIN 100,000 UNITS/GM TOPICAL PWD 15GM TOP SCH ×2 (07:41→21:36)
[2022-06-03 16:15] VITALS: BP 128/70
[2022-06-04 06:16] VITALS: BP 101/55
[2022-06-04] MEDS: NYSTATIN 100,000 UNITS/GM TOPICAL PWD 15GM TOP SCH ×2 (07:31→20:01)
[2022-06-04] MEDS: ONDANSETRON 4MG ORAL DISINTEGRATING TAB PO PRN (12:44)
[2022-06-04 12:53] VITALS: BP 122/76
[2022-06-04] MEDS ORDERED: ISOVUE-370 76% 100ML VIAL As Ordered ONE (13:05)
[2022-06-04 13:14] LABS: BASO % 0.5 % (0.0-1.0); EOS # 0.1 10^3/uL (0.0-0.5); EOS % 1.6 % (0.0-3.0); HEMATOCRIT 32.1 % (36.0-47.0); HEMOGLOBIN 9.9 g/dl (12.0-15.5); LYMPH # 1.5 10^3/uL (1.5-5.0); LYMPH % 20.4 % (24.0-44.0); MEAN CORPUSCULAR HEMOGLOBIN 25.8 pg (27.0-33.0); MEAN CORPUSCULAR HGB CONC 30.8 g/dl (32.0-36.5); MEAN CORPUSCULAR VOLUME 83.6 fl (80.0-96.0); MONO # 0.8 10^3/uL (0.0-0.8); MONO % 10.6 % (2.0-8.0); NEUTROPHILS # 4.9 10^3/uL (1.5-8.5); NEUTROPHILS % 66.6 % (36.0-66.0); PLATELET COUNT, AUTOMATED 233 10^3/uL (150-450); RED BLOOD COUNT 3.84 10^6/uL (4.00-5.40); WHITE BLOOD COUNT 7.4 10^3/uL (4.0-10.0)
[2022-06-04 13:25] LABS: ERYTHROCYTE SEDIMENTATION RATE 26 mm/hr (0-20)
[2022-06-04 13:43] LABS: C REACTIVE PROTEIN QUANTITATIV < 0.40 MG/DL (<1.0); LIPASE 32 U/L (12-53)
[2022-06-04 13:44] LABS: AMYLASE 42 U/L (30-118); MAGNESIUM LEVEL 2.1 MG/DL (1.8-2.4)
[2022-06-04 13:45] LABS: ALKALINE PHOSPHATASE 77 U/L (46-116); ALT/SGPT 19 U/L (7.0-40); AST/SGOT 22 U/L (<34); BILIRUBIN,TOTAL 0.3 MG/DL (0.3-1.2); BLOOD UREA NITROGEN 15 MG/DL (9-23); CALCIUM LEVEL 8.6 MG/DL (8.5-10.1); CARBON DIOXIDE LEVEL 27 MMOL/L (20-31); CHLORIDE LEVEL 103 MMOL/L (98-107); CREATININE FOR GFR 0.56 MG/DL (0.55-1.30); GLOMERULAR FILTRATION RATE > 60.0 (>58); GLUCOSE, FASTING 100 MG/DL (60-100); POTASSIUM SERUM 4.2 MMOL/L (3.5-5.1); SODIUM LEVEL 137 MMOL/L (136-145)
[2022-06-04 16:22] VITALS: BP 143/59
[2022-06-05 06:07] VITALS: BP 119/68
[2022-06-05] MEDS: NYSTATIN 100,000 UNITS/GM TOPICAL PWD 15GM TOP SCH ×2 (07:28→20:00)
[2022-06-05] MEDS ORDERED: TUBERCULIN PPD 5 UNITS/0.1 ML ID ONE ×2 (10:00→12:00)
[2022-06-05 18:11] VITALS: BP 99/59
[2022-06-05] MEDS: OLANZapine ORAL DISINTEGRATING TAB 5MG PO PRN (19:58)
[2022-06-06 06:43] VITALS: BP 121/82
[2022-06-06] MEDS: NYSTATIN 100,000 UNITS/GM TOPICAL PWD 15GM TOP SCH ×2 (07:38→20:32)
[2022-06-06] MEDS: OLANZapine ORAL DISINTEGRATING TAB 5MG PO PRN ×2 (07:39→20:58)
[2022-06-06 18:59] VITALS: BP 124/68
[2022-06-06] MEDS: traZODone 50 MG TAB PO PRN (20:58)
[2022-06-07 06:01] VITALS: BP 107/56
[2022-06-07] MEDS: NYSTATIN 100,000 UNITS/GM TOPICAL PWD 15GM TOP SCH ×2 (08:08→21:37)
[2022-06-07] MEDS: OLANZapine ORAL DISINTEGRATING TAB 5MG PO PRN (09:46)
[2022-06-07] MEDS ORDERED: PPD DOCUMENTATION ENTRY MISC XX SCH (10:00)
[2022-06-07] MEDS ORDERED: PPD DOCUMENTATION ENTRY MISC XX ONE (12:00)
[2022-06-07 18:32] VITALS: BP 129/89
[2022-06-08 04:38] VITALS: BP 123/59
[2022-06-08 06:29] VITALS: BP 126/85
[2022-06-08] MEDS: NYSTATIN 100,000 UNITS/GM TOPICAL PWD 15GM TOP SCH ×2 (07:40→20:59)
[2022-06-08] MEDS: ONDANSETRON 4MG ORAL DISINTEGRATING TAB PO PRN (07:43)
[2022-06-08] MEDS ORDERED: diphenhydrAMINE 50MG/ML VIAL IM ONE (14:50)
[2022-06-08] MEDS ORDERED: LORazepam 2 MG/ML 1ML VIAL IM ONE (14:50)
[2022-06-08] MEDS ORDERED: HALOPERIDOL 5MG/ML 1ML VIAL IM ONE (14:50)
[2022-06-08 19:29] VITALS: BP 106/63
[2022-06-09 06:24] VITALS: BP 113/58
[2022-06-09] MEDS ORDERED: diphenhydrAMINE 50MG CAP PO ONE (08:40)
[2022-06-09] MEDS: NYSTATIN 100,000 UNITS/GM TOPICAL PWD 15GM TOP SCH ×2 (09:00→21:00)
[2022-06-09 09:13] LABS: BASO % 0.4 % (0.0-1.0); EOS # 0.1 10^3/uL (0.0-0.5); EOS % 1.5 % (0.0-3.0); HEMATOCRIT 30.2 % (36.0-47.0); HEMOGLOBIN 9.3 g/dl (12.0-15.5); LYMPH # 1.2 10^3/uL (1.5-5.0); MEAN CORPUSCULAR HGB CONC 30.8 g/dl (32.0-36.5); MEAN CORPUSCULAR VOLUME 84.4 fl (80.0-96.0); MONO # 0.9 10^3/uL (0.0-0.8); MONO % 12.7 % (2.0-8.0); NEUTROPHILS # 4.9 10^3/uL (1.5-8.5); NEUTROPHILS % 68.1 % (36.0-66.0); PLATELET COUNT, AUTOMATED 226 10^3/uL (150-450); RED BLOOD COUNT 3.58 10^6/uL (4.00-5.40); WHITE BLOOD COUNT 7.2 10^3/uL (4.0-10.0)
[2022-06-09 09:35] LABS: MAGNESIUM LEVEL 1.9 MG/DL (1.8-2.4)
[2022-06-09 09:37] LABS: ALBUMIN 2.6 G/DL (3.2-5.2); ALKALINE PHOSPHATASE 72 U/L (46-116); ALT/SGPT 19 U/L (7.0-40); AST/SGOT 18 U/L (<34); BILIRUBIN,TOTAL 0.3 MG/DL (0.3-1.2); BLOOD UREA NITROGEN 12 MG/DL (9-23); CALCIUM LEVEL 8.6 MG/DL (8.5-10.1); CARBON DIOXIDE LEVEL 26 MMOL/L (20-31); CHLORIDE LEVEL 107 MMOL/L (98-107); CREATININE FOR GFR 0.57 MG/DL (0.55-1.30); GLOMERULAR FILTRATION RATE > 60.0 (>58); GLUCOSE, FASTING 107 MG/DL (60-100); POTASSIUM SERUM 4.1 MMOL/L (3.5-5.1); SODIUM LEVEL 139 MMOL/L (136-145); TOTAL PROTEIN 5.2 G/DL (5.7-8.2)
[2022-06-09] MEDS: FUROSEMIDE 20 MG TAB PO SCH (11:39)
[2022-06-09 11:46] VITALS: BP 117/90
[2022-06-09 14:08] LABS: CLOZAPINE 1 443 ng/mL (350-650); CLOZAPINE 2 146 ng/mL (Not Estab.); CLOZAPINE 3 589 ng/mL (.)
[2022-06-09 17:22] VITALS: BP 116/60
[2022-06-09] MEDS: PILL CUTTER 1 EACH XX PRN (20:49)
[2022-06-10 06:53] VITALS: BP 127/60
[2022-06-10] MEDS: POTASSIUM CHLORIDE 10MEQ SR TABLET PO SCH (09:01)
[2022-06-10] MEDS: FUROSEMIDE 20 MG TAB PO SCH (09:01)
[2022-06-10] MEDS: NYSTATIN 100,000 UNITS/GM TOPICAL PWD 15GM TOP SCH ×2 (09:13→20:04)
[2022-06-10 17:35] VITALS: BP 116/60
[2022-06-10] MEDS: PILL CUTTER 1 EACH XX PRN (20:05)
[2022-06-11] MEDS: traZODone 50 MG TAB PO PRN ×2 (01:11→21:38)
[2022-06-11] MEDS: OLANZapine ORAL DISINTEGRATING TAB 5MG PO PRN ×2 (01:11→22:08)
[2022-06-11 06:28] VITALS: BP 178/102
[2022-06-11 06:42] VITALS: BP 154/72
[2022-06-11 07:42] LABS: BLOOD UREA NITROGEN 14 MG/DL (9-23); CALCIUM LEVEL 8.1 MG/DL (8.5-10.1); CARBON DIOXIDE LEVEL 25 MMOL/L (20-31); CHLORIDE LEVEL 105 MMOL/L (98-107); CREATININE FOR GFR 0.59 MG/DL (0.55-1.30); GLOMERULAR FILTRATION RATE > 60.0 (>58); GLUCOSE, FASTING 98 MG/DL (60-100); POTASSIUM SERUM 4.1 MMOL/L (3.5-5.1); SODIUM LEVEL 137 MMOL/L (136-145)
[2022-06-11] MEDS: POTASSIUM CHLORIDE 10MEQ SR TABLET PO SCH (08:58)
[2022-06-11] MEDS ORDERED: FUROSEMIDE 20 MG TAB PO SCH (09:00)
[2022-06-11] MEDS: NYSTATIN 100,000 UNITS/GM TOPICAL PWD 15GM TOP SCH ×2 (09:01→20:53)
[2022-06-11 17:39] VITALS: BP 143/64
[2022-06-11] MEDS: FUROSEMIDE 20 MG TAB PO SCH (17:43)
[2022-06-12 06:16] VITALS: BP 139/74
[2022-06-12 08:09] LABS: BLOOD UREA NITROGEN 15 MG/DL (9-23); CALCIUM LEVEL 8.2 MG/DL (8.5-10.1); CARBON DIOXIDE LEVEL 27 MMOL/L (20-31); CHLORIDE LEVEL 103 MMOL/L (98-107); CREATININE FOR GFR 0.56 MG/DL (0.55-1.30); GLOMERULAR FILTRATION RATE > 60.0 (>58); GLUCOSE, FASTING 99 MG/DL (60-100); POTASSIUM SERUM 4.1 MMOL/L (3.5-5.1); SODIUM LEVEL 137 MMOL/L (136-145)
[2022-06-12] MEDS: NYSTATIN 100,000 UNITS/GM TOPICAL PWD 15GM TOP SCH ×3 (09:00→20:55)
[2022-06-12] MEDS: POTASSIUM CHLORIDE 10MEQ SR TABLET PO SCH (09:39)
[2022-06-12] MEDS: FUROSEMIDE 20 MG TAB PO SCH ×2 (09:40→17:00)
[2022-06-12 09:55] VITALS: BP 136/84
[2022-06-12 17:32] VITALS: BP 149/70
[2022-06-12] MEDS: traZODone 50 MG TAB PO PRN (20:55)
[2022-06-13 06:24] VITALS: BP 139/74
[2022-06-13 07:57] LABS: BLOOD UREA NITROGEN 15 MG/DL (9-23); CALCIUM LEVEL 8.4 MG/DL (8.5-10.1); CARBON DIOXIDE LEVEL 27 MMOL/L (20-31); CHLORIDE LEVEL 105 MMOL/L (98-107); CREATININE FOR GFR 0.63 MG/DL (0.55-1.30); GLOMERULAR FILTRATION RATE > 60.0 (>58); GLUCOSE, FASTING 113 MG/DL (60-100); POTASSIUM SERUM 4.1 MMOL/L (3.5-5.1); SODIUM LEVEL 140 MMOL/L (136-145)
[2022-06-13] MEDS: FUROSEMIDE 20 MG TAB PO SCH ×2 (08:55→17:39)
[2022-06-13] MEDS: POTASSIUM CHLORIDE 10MEQ SR TABLET PO SCH (08:55)
[2022-06-13] MEDS: NYSTATIN 100,000 UNITS/GM TOPICAL PWD 15GM TOP SCH ×2 (08:58→22:10)
[2022-06-13 16:51] VITALS: BP 112/60
[2022-06-13] MEDS: OLANZapine ORAL DISINTEGRATING TAB 5MG PO PRN (17:39)
[2022-06-13] MEDS: traZODone 50 MG TAB PO PRN (22:12)
[2022-06-14] MEDS: POTASSIUM CHLORIDE 10MEQ SR TABLET PO SCH (08:05)
[2022-06-14] MEDS: FUROSEMIDE 20 MG TAB PO SCH ×2 (08:05→17:13)
[2022-06-14] MEDS: NYSTATIN 100,000 UNITS/GM TOPICAL PWD 15GM TOP SCH ×2 (08:05→21:00)
[2022-06-14 16:04] VITALS: BP 142/64
[2022-06-14] MEDS: OLANZapine ORAL DISINTEGRATING TAB 5MG PO PRN (22:01)
[2022-06-14] MEDS: traZODone 50 MG TAB PO PRN (22:01)
[2022-06-15 06:20] VITALS: BP 129/59
[2022-06-15] MEDS: NYSTATIN 100,000 UNITS/GM TOPICAL PWD 15GM TOP SCH ×2 (08:01→21:00)
[2022-06-15] MEDS: FUROSEMIDE 20 MG TAB PO SCH ×2 (08:02→17:27)
[2022-06-15] MEDS: POTASSIUM CHLORIDE 10MEQ SR TABLET PO SCH (08:02)
[2022-06-15] MEDS ORDERED: TORSEMIDE 20 MG TAB PO SCH (09:00)
[2022-06-15] MEDS: OLANZapine ORAL DISINTEGRATING TAB 5MG PO PRN (10:35)
[2022-06-15] MEDS ORDERED: LORazepam 2 MG/ML 1ML VIAL IM ONE (11:55)
[2022-06-15] MEDS ORDERED: HALOPERIDOL 5MG/ML 1ML VIAL IM ONE (11:55)
[2022-06-15 11:57] LABS: BASO % 0.5 % (0.0-1.0); EOS # 0.2 10^3/uL (0.0-0.5); EOS % 2.5 % (0.0-3.0); HEMATOCRIT 31.3 % (36.0-47.0); HEMOGLOBIN 9.6 g/dl (12.0-15.5); LYMPH # 1.5 10^3/uL (1.5-5.0); LYMPH % 17.9 % (24.0-44.0); MEAN CORPUSCULAR HEMOGLOBIN 25.6 pg (27.0-33.0); MEAN CORPUSCULAR HGB CONC 30.7 g/dl (32.0-36.5); MEAN CORPUSCULAR VOLUME 83.5 fl (80.0-96.0); MONO # 0.9 10^3/uL (0.0-0.8); MONO % 10.7 % (2.0-8.0); NEUTROPHILS # 5.8 10^3/uL (1.5-8.5); PLATELET COUNT, AUTOMATED 257 10^3/uL (150-450); RED BLOOD COUNT 3.75 10^6/uL (4.00-5.40); WHITE BLOOD COUNT 8.5 10^3/uL (4.0-10.0)
[2022-06-15 18:11] VITALS: BP 116/57
[2022-06-15 23:51] LABS: BASO % 0.6 % (0.0-1.0); EOS # 0.2 10^3/uL (0.0-0.5); HEMATOCRIT 28.4 % (36.0-47.0); HEMOGLOBIN 8.8 g/dl (12.0-15.5); LYMPH # 1.5 10^3/uL (1.5-5.0); LYMPH % 22.1 % (24.0-44.0); MEAN CORPUSCULAR HEMOGLOBIN 25.8 pg (27.0-33.0); MEAN CORPUSCULAR VOLUME 83.3 fl (80.0-96.0); MONO # 0.8 10^3/uL (0.0-0.8); MONO % 11.7 % (2.0-8.0); NEUTROPHILS # 4.3 10^3/uL (1.5-8.5); NEUTROPHILS % 62.2 % (36.0-66.0); PLATELET COUNT, AUTOMATED 216 10^3/uL (150-450); RED BLOOD COUNT 3.41 10^6/uL (4.00-5.40); WHITE BLOOD COUNT 6.9 10^3/uL (4.0-10.0)
[2022-06-16 05:55] VITALS: BP 121/73
[2022-06-16 07:17] LABS: BASO % 0.5 % (0.0-1.0); EOS # 0.2 10^3/uL (0.0-0.5); EOS % 1.8 % (0.0-3.0); HEMATOCRIT 31.4 % (36.0-47.0); HEMOGLOBIN 9.5 g/dl (12.0-15.5); LYMPH # 1.6 10^3/uL (1.5-5.0); LYMPH % 18.9 % (24.0-44.0); MEAN CORPUSCULAR HEMOGLOBIN 25.3 pg (27.0-33.0); MEAN CORPUSCULAR HGB CONC 30.3 g/dl (32.0-36.5); MEAN CORPUSCULAR VOLUME 83.5 fl (80.0-96.0); MONO # 0.9 10^3/uL (0.0-0.8); MONO % 10.3 % (2.0-8.0); NEUTROPHILS # 5.6 10^3/uL (1.5-8.5); NEUTROPHILS % 68.3 % (36.0-66.0); PLATELET COUNT, AUTOMATED 263 10^3/uL (150-450); RED BLOOD COUNT 3.76 10^6/uL (4.00-5.40); WHITE BLOOD COUNT 8.3 10^3/uL (4.0-10.0)
[2022-06-16] MEDS: TORSEMIDE 20 MG TAB PO SCH ×2 (07:42→17:13)
[2022-06-16] MEDS: NYSTATIN 100,000 UNITS/GM TOPICAL PWD 15GM TOP SCH ×2 (07:42→20:43)
[2022-06-16] MEDS: POTASSIUM CHLORIDE 10MEQ SR TABLET PO SCH (07:42)
[2022-06-16 07:47] LABS: MAGNESIUM LEVEL 1.8 MG/DL (1.8-2.4)
[2022-06-16 07:49] LABS: BLOOD UREA NITROGEN 18 MG/DL (9-23); CALCIUM LEVEL 8.4 MG/DL (8.5-10.1); CARBON DIOXIDE LEVEL 29 MMOL/L (20-31); CHLORIDE LEVEL 104 MMOL/L (98-107); CREATININE FOR GFR 0.69 MG/DL (0.55-1.30); GLOMERULAR FILTRATION RATE > 60.0 (>58); GLUCOSE, FASTING 92 MG/DL (60-100); SODIUM LEVEL 138 MMOL/L (136-145)
[2022-06-16] MEDS: ENOXAPARIN 40MG/0.4ML SYRINGE (J1650 PER 10MG) SC SCH (09:00)
[2022-06-16] MEDS ORDERED: MIRALAX *UNIT DOSE* 17GM PACKET PO SCH (09:00)
[2022-06-16] MEDS: MAGNESIUM OXIDE 400MG TAB (MAG-OX) PO SCH (11:08)
[2022-06-16 16:22] VITALS: BP 131/86
[2022-06-16] MEDS: traZODone 50 MG TAB PO PRN (20:43)
[2022-06-17 06:42] VITALS: BP 120/70
[2022-06-17] MEDS: MAGNESIUM OXIDE 400MG TAB (MAG-OX) PO SCH (08:55)
[2022-06-17] MEDS: ENOXAPARIN 40MG/0.4ML SYRINGE (J1650 PER 10MG) SC SCH (08:55)
[2022-06-17] MEDS: TORSEMIDE 20 MG TAB PO SCH ×2 (08:55→17:18)
[2022-06-17] MEDS: POTASSIUM CHLORIDE 10MEQ SR TABLET PO SCH (08:55)
[2022-06-17] MEDS: NYSTATIN 100,000 UNITS/GM TOPICAL PWD 15GM TOP SCH ×2 (08:55→21:29)
[2022-06-17 16:03] VITALS: BP 130/60
[2022-06-17] MEDS: traZODone 50 MG TAB PO PRN (21:28)
[2022-06-18 06:59] VITALS: BP 125/59
[2022-06-18 08:20] LABS: MAGNESIUM LEVEL 2.1 MG/DL (1.8-2.4)
[2022-06-18 08:22] LABS: BLOOD UREA NITROGEN 16 MG/DL (9-23); CALCIUM LEVEL 8.5 MG/DL (8.5-10.1); CARBON DIOXIDE LEVEL 30 MMOL/L (20-31); CHLORIDE LEVEL 103 MMOL/L (98-107); CREATININE FOR GFR 0.65 MG/DL (0.55-1.30); GLOMERULAR FILTRATION RATE > 60.0 (>58); GLUCOSE, FASTING 108 MG/DL (60-100); POTASSIUM SERUM 3.6 MMOL/L (3.5-5.1); SODIUM LEVEL 139 MMOL/L (136-145)
[2022-06-18] MEDS: TORSEMIDE 20 MG TAB PO SCH ×2 (08:48→17:00)
[2022-06-18] MEDS: MAGNESIUM OXIDE 400MG TAB (MAG-OX) PO SCH (08:48)
[2022-06-18] MEDS: POTASSIUM CHLORIDE 10MEQ SR TABLET PO SCH (08:48)
[2022-06-18] MEDS: ENOXAPARIN 40MG/0.4ML SYRINGE (J1650 PER 10MG) SC SCH (08:50)
[2022-06-18] MEDS: NYSTATIN 100,000 UNITS/GM TOPICAL PWD 15GM TOP SCH ×2 (08:50→21:00)
[2022-06-18 16:18] VITALS: BP_SYST 120; BP_SYST 126; BP_DIAS 64; BP_DIAS 72
[2022-06-19] MEDS: MAGNESIUM OXIDE 400MG TAB (MAG-OX) PO SCH (10:00)
[2022-06-19] MEDS: NYSTATIN 100,000 UNITS/GM TOPICAL PWD 15GM TOP SCH ×2 (10:00→21:00)
[2022-06-19] MEDS: POTASSIUM CHLORIDE 10MEQ SR TABLET PO SCH (10:00)
[2022-06-19] MEDS: TORSEMIDE 20 MG TAB PO SCH ×2 (10:49→17:56)
[2022-06-19] MEDS: OLANZapine ORAL DISINTEGRATING TAB 5MG PO PRN (10:51)
[2022-06-19] MEDS: ENOXAPARIN 40MG/0.4ML SYRINGE (J1650 PER 10MG) SC SCH (11:08)
[2022-06-19 19:21] VITALS: BP 138/82
[2022-06-20 06:17] VITALS: BP 116/56
[2022-06-20 06:43] LABS: MAGNESIUM LEVEL 1.9 MG/DL (1.8-2.4)
[2022-06-20 06:45] LABS: BLOOD UREA NITROGEN 15 MG/DL (9-23); CALCIUM LEVEL 8.3 MG/DL (8.5-10.1); CARBON DIOXIDE LEVEL 30 MMOL/L (20-31); CHLORIDE LEVEL 102 MMOL/L (98-107); CREATININE FOR GFR 0.62 MG/DL (0.55-1.30); GLOMERULAR FILTRATION RATE > 60.0 (>58); GLUCOSE, FASTING 113 MG/DL (60-100); POTASSIUM SERUM 3.5 MMOL/L (3.5-5.1); SODIUM LEVEL 139 MMOL/L (136-145)
[2022-06-20] MEDS: MAGNESIUM OXIDE 400MG TAB (MAG-OX) PO SCH (09:13)
[2022-06-20] MEDS: POTASSIUM CHLORIDE 10MEQ SR TABLET PO SCH (09:13)
[2022-06-20] MEDS: NYSTATIN 100,000 UNITS/GM TOPICAL PWD 15GM TOP SCH ×2 (09:14→21:00)
[2022-06-20] MEDS: ENOXAPARIN 40MG/0.4ML SYRINGE (J1650 PER 10MG) SC SCH (09:14)
[2022-06-20] MEDS: TORSEMIDE 20 MG TAB PO SCH ×2 (09:14→17:06)
[2022-06-20] MEDS ORDERED: MIRALAX *UNIT DOSE* 17GM PACKET PO PRN (13:25)
[2022-06-20 18:33] VITALS: BP 127/67
[2022-06-21 06:34] VITALS: BP 108/59
[2022-06-21] MEDS: POTASSIUM CHLORIDE 10MEQ SR TABLET PO SCH (09:00)
[2022-06-21] MEDS: MAGNESIUM OXIDE 400MG TAB (MAG-OX) PO SCH (09:10)
[2022-06-21] MEDS: OLANZapine ORAL DISINTEGRATING TAB 5MG PO PRN (09:13)
[2022-06-21] MEDS: NYSTATIN 100,000 UNITS/GM TOPICAL PWD 15GM TOP SCH ×2 (09:13→21:03)
[2022-06-21] MEDS: TORSEMIDE 20 MG TAB PO SCH ×2 (09:19→17:00)
[2022-06-21] MEDS: ENOXAPARIN 40MG/0.4ML SYRINGE (J1650 PER 10MG) SC SCH (09:20)
[2022-06-21] MEDS: LORazepam 2 MG TAB PO PRN (10:38)
[2022-06-21 17:00] VITALS: BP 106/56
[2022-06-21 19:04] VITALS: BP 120/56
[2022-06-22 07:38] LABS: MAGNESIUM LEVEL 2.2 MG/DL (1.8-2.4)
[2022-06-22 07:40] LABS: BLOOD UREA NITROGEN 17 MG/DL (9-23); CALCIUM LEVEL 8.6 MG/DL (8.5-10.1); CARBON DIOXIDE LEVEL 30 MMOL/L (20-31); CHLORIDE LEVEL 102 MMOL/L (98-107); CREATININE FOR GFR 0.57 MG/DL (0.55-1.30); GLOMERULAR FILTRATION RATE > 60.0 (>58); GLUCOSE, FASTING 96 MG/DL (60-100); POTASSIUM SERUM 3.5 MMOL/L (3.5-5.1); SODIUM LEVEL 137 MMOL/L (136-145)
[2022-06-22] MEDS: OLANZapine ORAL DISINTEGRATING TAB 5MG PO PRN (09:35)
[2022-06-22] MEDS: MAGNESIUM OXIDE 400MG TAB (MAG-OX) PO SCH (09:44)
[2022-06-22] MEDS: POTASSIUM CHLORIDE 10MEQ SR TABLET PO SCH (09:44)
[2022-06-22] MEDS: TORSEMIDE 20 MG TAB PO SCH (09:44)
[2022-06-22] MEDS: NYSTATIN 100,000 UNITS/GM TOPICAL PWD 15GM TOP SCH ×2 (09:45→20:39)
[2022-06-22] MEDS: ENOXAPARIN 40MG/0.4ML SYRINGE (J1650 PER 10MG) SC SCH (09:45)
[2022-06-22] MEDS: LORazepam 2 MG TAB PO PRN (10:02)
[2022-06-22] MEDS ORDERED: PALIPERIDONE PAL 234MG/1.5ML INJ (INVEGA)(FREE PSY INPT ONLY) IM ONE (13:00)
[2022-06-22] MEDS: LOPERAMIDE 2 MG CAPLET PO PRN (16:53)
[2022-06-22 19:05] VITALS: BP 124/72
[2022-06-22] MEDS: traZODone 50 MG TAB PO PRN (20:39)
[2022-06-23 06:47] VITALS: BP 124/69
[2022-06-23] MEDS: NYSTATIN 100,000 UNITS/GM TOPICAL PWD 15GM TOP SCH ×2 (09:00→20:37)
[2022-06-23] MEDS: MAGNESIUM OXIDE 400MG TAB (MAG-OX) PO SCH (09:54)
[2022-06-23] MEDS: ENOXAPARIN 40MG/0.4ML SYRINGE (J1650 PER 10MG) SC SCH ×2 (09:54→10:04)
[2022-06-23] MEDS: POTASSIUM CHLORIDE 10MEQ SR TABLET PO SCH (09:55)
[2022-06-23 12:30] LABS: BASO % 0.4 % (0.0-1.0); EOS # 0.1 10^3/uL (0.0-0.5); EOS % 1.3 % (0.0-3.0); HEMATOCRIT 33.9 % (36.0-47.0); HEMOGLOBIN 10.4 g/dl (12.0-15.5); LYMPH # 1.9 10^3/uL (1.5-5.0); LYMPH % 18.7 % (24.0-44.0); MEAN CORPUSCULAR HEMOGLOBIN 25.2 pg (27.0-33.0); MEAN CORPUSCULAR HGB CONC 30.7 g/dl (32.0-36.5); MEAN CORPUSCULAR VOLUME 82.1 fl (80.0-96.0); NEUTROPHILS # 7.1 10^3/uL (1.5-8.5); NEUTROPHILS % 69.3 % (36.0-66.0); PLATELET COUNT, AUTOMATED 289 10^3/uL (150-450); RED BLOOD COUNT 4.13 10^6/uL (4.00-5.40); WHITE BLOOD COUNT 10.3 10^3/uL (4.0-10.0)
[2022-06-23] MEDS: LORazepam 2 MG TAB PO PRN (13:59)
[2022-06-23] MEDS: OLANZapine ORAL DISINTEGRATING TAB 5MG PO PRN (15:03)
[2022-06-24 06:24] VITALS: BP 113/58
[2022-06-24] MEDS: NYSTATIN 100,000 UNITS/GM TOPICAL PWD 15GM TOP SCH ×2 (09:00→21:00)
[2022-06-24] MEDS: ENOXAPARIN 40MG/0.4ML SYRINGE (J1650 PER 10MG) SC SCH (09:00)
[2022-06-24] MEDS: POTASSIUM CHLORIDE 10MEQ SR TABLET PO SCH (09:00)
[2022-06-24] MEDS: MAGNESIUM OXIDE 400MG TAB (MAG-OX) PO SCH (09:57)
[2022-06-24 17:13] VITALS: BP 133/82
[2022-06-25] MEDS: LORazepam 2 MG TAB PO PRN ×2 (05:07→13:10)
[2022-06-25] MEDS: NYSTATIN 100,000 UNITS/GM TOPICAL PWD 15GM TOP SCH ×2 (09:00→21:19)
[2022-06-25] MEDS: ENOXAPARIN 40MG/0.4ML SYRINGE (J1650 PER 10MG) SC SCH (09:00)
[2022-06-25] MEDS: POTASSIUM CHLORIDE 10MEQ SR TABLET PO SCH (10:10)
[2022-06-25] MEDS: MAGNESIUM OXIDE 400MG TAB (MAG-OX) PO SCH (10:10)
[2022-06-25] MEDS ORDERED: CEPACOL LOZENGE PO PRN (11:10)
[2022-06-25 20:23] VITALS: BP 117/66
[2022-06-25] MEDS: traZODone 50 MG TAB PO PRN (21:19)
[2022-06-26 06:02] VITALS: BP 117/60
[2022-06-26] MEDS: POTASSIUM CHLORIDE 10MEQ SR TABLET PO SCH (08:55)
[2022-06-26] MEDS: NYSTATIN 100,000 UNITS/GM TOPICAL PWD 15GM TOP SCH ×2 (08:55→21:37)
[2022-06-26] MEDS: MAGNESIUM OXIDE 400MG TAB (MAG-OX) PO SCH (08:55)
[2022-06-26] MEDS: LORazepam 2 MG TAB PO PRN (08:56)
[2022-06-26 17:22] VITALS: BP 131/64
[2022-06-26] MEDS: traZODone 50 MG TAB PO PRN (21:33)
[2022-06-27 06:17] VITALS: BP 105/58
[2022-06-27] MEDS: MAGNESIUM OXIDE 400MG TAB (MAG-OX) PO SCH (09:39)
[2022-06-27] MEDS: POTASSIUM CHLORIDE 10MEQ SR TABLET PO SCH (09:39)
[2022-06-27] MEDS: NYSTATIN 100,000 UNITS/GM TOPICAL PWD 15GM TOP SCH ×2 (09:40→21:00)
[2022-06-27] MEDS: OLANZapine ORAL DISINTEGRATING TAB 5MG PO PRN (09:40)
[2022-06-28 06:22] VITALS: BP 144/89
[2022-06-28] MEDS: POTASSIUM CHLORIDE 10MEQ SR TABLET PO SCH (07:46)
[2022-06-28] MEDS: MAGNESIUM OXIDE 400MG TAB (MAG-OX) PO SCH (07:46)
[2022-06-28] MEDS: NYSTATIN 100,000 UNITS/GM TOPICAL PWD 15GM TOP SCH ×2 (07:46→20:43)
[2022-06-28 16:10] VITALS: BP 121/71
[2022-06-29 06:32] VITALS: BP 133/88
[2022-06-29] MEDS: MAGNESIUM OXIDE 400MG TAB (MAG-OX) PO SCH (08:48)
[2022-06-29] MEDS: LORazepam 2 MG TAB PO PRN (08:49)
[2022-06-29] MEDS: POTASSIUM CHLORIDE 10MEQ SR TABLET PO SCH (08:49)
[2022-06-29] MEDS: NYSTATIN 100,000 UNITS/GM TOPICAL PWD 15GM TOP SCH ×2 (09:17→21:00)
[2022-06-29 18:16] VITALS: BP 128/76
[2022-06-30] MEDS: MAGNESIUM OXIDE 400MG TAB (MAG-OX) PO SCH (09:45)
[2022-06-30] MEDS: POTASSIUM CHLORIDE 10MEQ SR TABLET PO SCH (09:46)
[2022-06-30] MEDS: NYSTATIN 100,000 UNITS/GM TOPICAL PWD 15GM TOP SCH ×2 (09:46→20:45)
[2022-06-30] MEDS: LORazepam 2 MG TAB PO PRN (12:05)
[2022-06-30] MEDS: OLANZapine ORAL DISINTEGRATING TAB 5MG PO PRN (12:05)
[2022-06-30 16:23] VITALS: BP 121/69
[2022-07-01 06:17] VITALS: BP 120/74
[2022-07-01] MEDS: MAGNESIUM OXIDE 400MG TAB (MAG-OX) PO SCH (09:26)
[2022-07-01] MEDS: POTASSIUM CHLORIDE 10MEQ SR TABLET PO SCH (09:26)
[2022-07-01] MEDS: NYSTATIN 100,000 UNITS/GM TOPICAL PWD 15GM TOP SCH ×2 (09:27→20:39)
[2022-07-01] MEDS: LORazepam 2 MG TAB PO PRN (13:35)
[2022-07-01] MEDS: OLANZapine ORAL DISINTEGRATING TAB 5MG PO PRN (13:36)
[2022-07-01 16:38] VITALS: BP 128/60
[2022-07-01] MEDS: ACETAMINOPHEN TAB 650MG DOSE (2X325MG) PO PRN (17:11)
[2022-07-01] MEDS: traZODone 50 MG TAB PO PRN (20:39)
[2022-07-02 06:36] VITALS: BP 142/63
[2022-07-02] MEDS: POTASSIUM CHLORIDE 10MEQ SR TABLET PO SCH (09:47)
[2022-07-02] MEDS: MAGNESIUM OXIDE 400MG TAB (MAG-OX) PO SCH (09:47)
[2022-07-02] MEDS: NYSTATIN 100,000 UNITS/GM TOPICAL PWD 15GM TOP SCH ×2 (09:48→20:30)
[2022-07-02] MEDS: OLANZapine ORAL DISINTEGRATING TAB 5MG PO PRN (17:46)
[2022-07-02] MEDS: LORazepam 2 MG TAB PO PRN (17:48)
[2022-07-03 06:09] VITALS: BP 112/63
[2022-07-03] MEDS: LORazepam 2 MG TAB PO PRN ×2 (08:54→16:54)
[2022-07-03] MEDS: NYSTATIN 100,000 UNITS/GM TOPICAL PWD 15GM TOP SCH ×2 (08:55→21:00)
[2022-07-03 12:07] LABS: CLOZAPINE 1 482 ng/mL (350-650); CLOZAPINE 2 205 ng/mL (Not Estab.); CLOZAPINE 3 687 ng/mL (.)
[2022-07-03] MEDS: LOPERAMIDE 2 MG CAPLET PO PRN (16:53)
[2022-07-03 18:25] VITALS: BP 140/70
[2022-07-04 05:58] VITALS: BP 145/65
[2022-07-04] MEDS: NYSTATIN 100,000 UNITS/GM TOPICAL PWD 15GM TOP SCH ×2 (09:52→20:37)
[2022-07-04] MEDS: traZODone 50 MG TAB PO PRN (20:37)
[2022-07-04] MEDS: ACETAMINOPHEN TAB 650MG DOSE (2X325MG) PO PRN (20:37)
[2022-07-05] MEDS: NYSTATIN 100,000 UNITS/GM TOPICAL PWD 15GM TOP SCH ×2 (08:11→22:15)
[2022-07-05] MEDS: LORazepam 2 MG TAB PO PRN (09:52)
[2022-07-05] MEDS: OLANZapine ORAL DISINTEGRATING TAB 5MG PO PRN (10:18)
[2022-07-05 11:59] LABS: BASO % 0.4 % (0.0-1.0); EOS # 0.2 10^3/uL (0.0-0.5); EOS % 2.3 % (0.0-3.0); HEMOGLOBIN 8.8 g/dl (12.0-15.5); LYMPH # 1.5 10^3/uL (1.5-5.0); LYMPH % 18.7 % (24.0-44.0); MEAN CORPUSCULAR HEMOGLOBIN 24.9 pg (27.0-33.0); MEAN CORPUSCULAR HGB CONC 30.3 g/dl (32.0-36.5); MEAN CORPUSCULAR VOLUME 81.9 fl (80.0-96.0); MONO # 0.9 10^3/uL (0.0-0.8); MONO % 10.8 % (2.0-8.0); NEUTROPHILS # 5.4 10^3/uL (1.5-8.5); NEUTROPHILS % 67.4 % (36.0-66.0); PLATELET COUNT, AUTOMATED 220 10^3/uL (150-450); RED BLOOD COUNT 3.54 10^6/uL (4.00-5.40)
[2022-07-05] MEDS: LOPERAMIDE 2 MG CAPLET PO PRN (14:32)
[2022-07-05 16:29] LABS: BASO % 0.4 % (0.0-1.0); EOS # 0.2 10^3/uL (0.0-0.5); EOS % 2.9 % (0.0-3.0); HEMATOCRIT 29.8 % (36.0-47.0); HEMOGLOBIN 9.2 g/dl (12.0-15.5); LYMPH # 1.6 10^3/uL (1.5-5.0); LYMPH % 21.3 % (24.0-44.0); MEAN CORPUSCULAR HEMOGLOBIN 25.1 pg (27.0-33.0); MEAN CORPUSCULAR HGB CONC 30.9 g/dl (32.0-36.5); MEAN CORPUSCULAR VOLUME 81.4 fl (80.0-96.0); MONO # 0.8 10^3/uL (0.0-0.8); MONO % 10.3 % (2.0-8.0); NEUTROPHILS # 4.9 10^3/uL (1.5-8.5); NEUTROPHILS % 64.8 % (36.0-66.0); PLATELET COUNT, AUTOMATED 228 10^3/uL (150-450); RED BLOOD COUNT 3.66 10^6/uL (4.00-5.40); WHITE BLOOD COUNT 7.6 10^3/uL (4.0-10.0)
[2022-07-05 18:01] LABS: ALBUMIN 2.6 G/DL (3.2-5.2); ALKALINE PHOSPHATASE 76 U/L (46-116); ALT/SGPT 23 U/L (7.0-40); AST/SGOT 19 U/L (<34); BILIRUBIN,TOTAL 0.2 MG/DL (0.3-1.2); BLOOD UREA NITROGEN 16 MG/DL (9-23); CALCIUM LEVEL 8.6 MG/DL (8.5-10.1); CARBON DIOXIDE LEVEL 27 MMOL/L (20-31); CHLORIDE LEVEL 106 MMOL/L (98-107); CREATININE FOR GFR 0.58 MG/DL (0.55-1.30); GLOMERULAR FILTRATION RATE > 60.0 (>58); GLUCOSE, FASTING 108 MG/DL (60-100); MAGNESIUM LEVEL 1.8 MG/DL (1.8-2.4); POTASSIUM SERUM 4.2 MMOL/L (3.5-5.1); SODIUM LEVEL 141 MMOL/L (136-145); TOTAL PROTEIN 5.4 G/DL (5.7-8.2)
[2022-07-05 19:09] VITALS: BP 111/67
[2022-07-05 21:08] LABS: GC DNA AMPLIFICATION NEGATIVE (NEGATIVE)
[2022-07-05] MEDS: traZODone 50 MG TAB PO PRN (22:15)
[2022-07-06 06:59] VITALS: BP 142/64
[2022-07-06] MEDS: NYSTATIN 100,000 UNITS/GM TOPICAL PWD 15GM TOP SCH ×2 (09:00→21:00)
[2022-07-06] MEDS: LORazepam 2 MG TAB PO PRN (17:35)
[2022-07-06 17:44] VITALS: BP 159/76
[2022-07-06] MEDS: traZODone 50 MG TAB PO PRN (21:00)
[2022-07-07 06:19] VITALS: BP 132/83
[2022-07-07] MEDS: NYSTATIN 100,000 UNITS/GM TOPICAL PWD 15GM TOP SCH (09:59)
[2022-07-07] MEDS: CARIPRAZINE 1.5MG CAPSULE (VRAYLAR) PO SCH (09:59)
[2022-07-07] MEDS: LORazepam 2 MG TAB PO PRN (11:41)
[2022-07-07 18:32] VITALS: BP 122/68
[2022-07-08 06:33] VITALS: BP 129/72
[2022-07-08] MEDS: CARIPRAZINE 1.5MG CAPSULE (VRAYLAR) PO SCH (08:22)
[2022-07-08] MEDS: LORazepam 2 MG TAB PO PRN (08:23)
[2022-07-08 18:23] VITALS: BP 116/80
[2022-07-09 06:30] VITALS: BP 134/74
[2022-07-09] MEDS: CARIPRAZINE 1.5MG CAPSULE (VRAYLAR) PO SCH (09:44)
[2022-07-09] MEDS: LORazepam 2 MG TAB PO PRN (09:47)
[2022-07-09 16:14] VITALS: BP 114/75
[2022-07-09] MEDS: traZODone 50 MG TAB PO PRN (22:23)
[2022-07-10 06:20] VITALS: BP 121/76
[2022-07-10] MEDS: CARIPRAZINE 1.5MG CAPSULE (VRAYLAR) PO SCH (08:54)
[2022-07-10 16:52] VITALS: BP 126/73
[2022-07-10] MEDS: traZODone 50 MG TAB PO PRN (21:51)
[2022-07-11 06:39] VITALS: BP 129/74
[2022-07-11] MEDS: CARIPRAZINE 1.5MG CAPSULE (VRAYLAR) PO SCH (09:50)
[2022-07-11 16:58] VITALS: BP 121/60
[2022-07-12 06:36] VITALS: BP 111/70
[2022-07-12] MEDS: LITHIUM CARBONATE 150 MG CAP PO SCH (09:00)
[2022-07-12] MEDS: CARIPRAZINE 1.5MG CAPSULE (VRAYLAR) PO SCH (09:26)
[2022-07-12] MEDS: DOCUSATE SODIUM 100MG CAPSULE PO SCH ×2 (15:11→21:00)
[2022-07-12 16:09] VITALS: BP 138/70
[2022-07-13 06:38] VITALS: BP 119/58
[2022-07-13] MEDS: DOCUSATE SODIUM 100MG CAPSULE PO SCH ×2 (09:00→20:00)
[2022-07-13] MEDS: LITHIUM CARBONATE 150 MG CAP PO SCH (09:47)
[2022-07-13] MEDS: CARIPRAZINE 1.5MG CAPSULE (VRAYLAR) PO SCH (09:47)
[2022-07-13] MEDS: LORazepam 2 MG TAB PO PRN (14:06)
[2022-07-13] MEDS: ACETAMINOPHEN TAB 650MG DOSE (2X325MG) PO PRN (18:28)
[2022-07-13 18:43] VITALS: BP 122/68
[2022-07-14 05:48] VITALS: BP 112/70
[2022-07-14] MEDS: CARIPRAZINE 1.5MG CAPSULE (VRAYLAR) PO SCH (09:05)
[2022-07-14] MEDS: DOCUSATE SODIUM 100MG CAPSULE PO SCH ×2 (09:05→21:55)
[2022-07-14] MEDS: LITHIUM CARBONATE 150 MG CAP PO SCH (09:05)
[2022-07-14 11:35] LABS: BASO # 0.1 10^3/uL (0.0-0.2); BASO % 0.6 % (0.0-1.0); EOS # 0.2 10^3/uL (0.0-0.5); EOS % 2.3 % (0.0-3.0); HEMATOCRIT 33.2 % (36.0-47.0); HEMOGLOBIN 10.2 g/dl (12.0-15.5); LYMPH # 1.9 10^3/uL (1.5-5.0); LYMPH % 21.5 % (24.0-44.0); MEAN CORPUSCULAR HEMOGLOBIN 24.5 pg (27.0-33.0); MEAN CORPUSCULAR HGB CONC 30.7 g/dl (32.0-36.5); MEAN CORPUSCULAR VOLUME 79.6 fl (80.0-96.0); MONO # 0.9 10^3/uL (0.0-0.8); MONO % 10.4 % (2.0-8.0); NEUTROPHILS # 5.7 10^3/uL (1.5-8.5); NEUTROPHILS % 64.9 % (36.0-66.0); PLATELET COUNT, AUTOMATED 259 10^3/uL (150-450); RED BLOOD COUNT 4.17 10^6/uL (4.00-5.40); WHITE BLOOD COUNT 8.8 10^3/uL (4.0-10.0)
[2022-07-14 11:45] LABS: HEMOGLOBIN A1c 5.1 % (4.0-6.0)
[2022-07-14 16:11] VITALS: BP 116/63
[2022-07-14] MEDS: LORazepam 2 MG TAB PO PRN (18:07)
[2022-07-14] MEDS: traZODone 50 MG TAB PO PRN (21:55)
[2022-07-15 06:24] VITALS: BP 117/80
[2022-07-15] MEDS: DOCUSATE SODIUM 100MG CAPSULE PO SCH ×2 (09:02→21:11)
[2022-07-15] MEDS: LITHIUM CARBONATE 150 MG CAP PO SCH (09:03)
[2022-07-15] MEDS: CARIPRAZINE 1.5MG CAPSULE (VRAYLAR) PO SCH (09:03)
[2022-07-15 16:33] VITALS: BP 126/68
[2022-07-15] MEDS: traZODone 50 MG TAB PO PRN (21:11)
[2022-07-16 06:06] VITALS: BP 131/75
[2022-07-16] MEDS: LITHIUM CARBONATE 150 MG CAP PO SCH (08:57)
[2022-07-16] MEDS: CARIPRAZINE 1.5MG CAPSULE (VRAYLAR) PO SCH (08:58)
[2022-07-16] MEDS: DOCUSATE SODIUM 100MG CAPSULE PO SCH ×2 (08:58→20:45)
[2022-07-16 16:07] VITALS: BP 127/63
[2022-07-16] MEDS: traZODone 50 MG TAB PO PRN (23:26)
[2022-07-17 06:33] VITALS: BP 124/60
[2022-07-17] MEDS: DOCUSATE SODIUM 100MG CAPSULE PO SCH ×2 (09:00→21:00)
[2022-07-17] MEDS: LITHIUM CARBONATE 150 MG CAP PO SCH (10:23)
[2022-07-17] MEDS: CARIPRAZINE 1.5MG CAPSULE (VRAYLAR) PO SCH (10:24)
[2022-07-17] MEDS: LORazepam 2 MG TAB PO PRN ×2 (10:26→18:13)
[2022-07-18 06:14] VITALS: BP 124/85
[2022-07-18] MEDS: DOCUSATE SODIUM 100MG CAPSULE PO SCH ×2 (09:00→20:11)
[2022-07-18] MEDS: CARIPRAZINE 1.5MG CAPSULE (VRAYLAR) PO SCH (10:02)
[2022-07-18] MEDS: LITHIUM CARBONATE 150 MG CAP PO SCH (10:02)
[2022-07-18 16:22] VITALS: BP 117/66
[2022-07-18] MEDS: LORazepam 2 MG TAB PO PRN (17:21)
[2022-07-19 07:01] VITALS: BP 118/61
[2022-07-19] MEDS: CARIPRAZINE 1.5MG CAPSULE (VRAYLAR) PO SCH (10:08)
[2022-07-19] MEDS: LITHIUM CARBONATE 150 MG CAP PO SCH (10:09)
[2022-07-19] MEDS: DOCUSATE SODIUM 100MG CAPSULE PO SCH ×2 (10:09→19:56)
[2022-07-19 17:11] VITALS: BP 113/72
[2022-07-19] MEDS: traZODone 50 MG TAB PO PRN (19:56)
[2022-07-20 06:26] VITALS: BP 102/50
[2022-07-20] MEDS: DOCUSATE SODIUM 100MG CAPSULE PO SCH ×2 (09:19→20:17)
[2022-07-20] MEDS: CARIPRAZINE 1.5MG CAPSULE (VRAYLAR) PO SCH (09:19)
[2022-07-20] MEDS: LITHIUM CARBONATE 150 MG CAP PO SCH (09:19)
[2022-07-20 18:00] VITALS: BP 132/73
[2022-07-20] MEDS: traZODone 50 MG TAB PO PRN (20:17)
[2022-07-21 06:29] VITALS: BP 106/58
[2022-07-21] MEDS: DOCUSATE SODIUM 100MG CAPSULE PO SCH ×2 (09:00→22:27)
[2022-07-21] MEDS: LITHIUM CARBONATE 150 MG CAP PO SCH ×2 (09:20→22:28)
[2022-07-21] MEDS: CARIPRAZINE 1.5MG CAPSULE (VRAYLAR) PO SCH (09:20)
[2022-07-21] MEDS: LORazepam 2 MG TAB PO PRN (09:36)
[2022-07-21] MEDS ORDERED: PALIPERIDONE PAL 234MG/1.5ML INJ (INVEGA)(FREE PSY INPT ONLY) IM ONE (10:00)
[2022-07-21 17:45] VITALS: BP 140/82
[2022-07-22 05:47] VITALS: BP 106/56
[2022-07-22] MEDS: DOCUSATE SODIUM 100MG CAPSULE PO SCH ×2 (09:00→23:30)
[2022-07-22] MEDS: LITHIUM CARBONATE 150 MG CAP PO SCH ×2 (09:21→23:28)
[2022-07-22] MEDS: CARIPRAZINE 1.5MG CAPSULE (VRAYLAR) PO SCH (09:23)
[2022-07-22] MEDS: LORazepam 2 MG TAB PO PRN (13:52)
[2022-07-22 18:06] VITALS: BP 111/79
[2022-07-23 06:32] VITALS: BP 120/77
[2022-07-23] MEDS: DOCUSATE SODIUM 100MG CAPSULE PO SCH ×2 (09:00→20:40)
[2022-07-23] MEDS: LITHIUM CARBONATE 150 MG CAP PO SCH ×2 (09:43→20:40)
[2022-07-23] MEDS: CARIPRAZINE 1.5MG CAPSULE (VRAYLAR) PO SCH (09:44)
[2022-07-23] MEDS: LORazepam 2 MG TAB PO PRN (11:03)
[2022-07-23 17:36] VITALS: BP 127/80
[2022-07-23] MEDS: traZODone 50 MG TAB PO PRN (20:40)
[2022-07-24 06:18] VITALS: BP 136/59
[2022-07-24] MEDS: DOCUSATE SODIUM 100MG CAPSULE PO SCH ×2 (08:50→20:47)
[2022-07-24] MEDS: LITHIUM CARBONATE 150 MG CAP PO SCH ×2 (08:50→20:47)
[2022-07-24] MEDS: CARIPRAZINE 1.5MG CAPSULE (VRAYLAR) PO SCH (08:50)
[2022-07-24] MEDS: OLANZapine ORAL DISINTEGRATING TAB 5MG PO PRN (15:24)
[2022-07-24 16:36] VITALS: BP 130/75
[2022-07-24] MEDS: traZODone 50 MG TAB PO PRN (20:47)
[2022-07-25 06:48] VITALS: BP 122/79
[2022-07-25] MEDS: DOCUSATE SODIUM 100MG CAPSULE PO SCH ×2 (07:29→20:22)
[2022-07-25] MEDS: CARIPRAZINE 1.5MG CAPSULE (VRAYLAR) PO SCH (07:29)
[2022-07-25] MEDS: LITHIUM CARBONATE 150 MG CAP PO SCH (07:29)
[2022-07-25 13:07] LABS: BASO % 0.4 % (0.0-1.0); EOS # 0.1 10^3/uL (0.0-0.5); HEMATOCRIT 36.5 % (36.0-47.0); HEMOGLOBIN 11.4 g/dl (12.0-15.5); LYMPH # 1.3 10^3/uL (1.5-5.0); LYMPH % 12.5 % (24.0-44.0); MEAN CORPUSCULAR HEMOGLOBIN 25.1 pg (27.0-33.0); MEAN CORPUSCULAR HGB CONC 31.2 g/dl (32.0-36.5); MEAN CORPUSCULAR VOLUME 80.4 fl (80.0-96.0); MONO # 0.8 10^3/uL (0.0-0.8); MONO % 7.5 % (2.0-8.0); NEUTROPHILS # 8.3 10^3/uL (1.5-8.5); NEUTROPHILS % 78.1 % (36.0-66.0); PLATELET COUNT, AUTOMATED 218 10^3/uL (150-450); RED BLOOD COUNT 4.54 10^6/uL (4.00-5.40); WHITE BLOOD COUNT 10.6 10^3/uL (4.0-10.0)
[2022-07-25] MEDS: OLANZapine ORAL DISINTEGRATING TAB 5MG PO PRN (17:33)
[2022-07-25] MEDS: LITHIUM CARBONATE 300 MG CAP PO SCH (20:23)
[2022-07-26 06:33] VITALS: BP 127/70
[2022-07-26] MEDS: DOCUSATE SODIUM 100MG CAPSULE PO SCH ×2 (08:24→22:20)
[2022-07-26] MEDS: CARIPRAZINE 1.5MG CAPSULE (VRAYLAR) PO SCH (08:24)
[2022-07-26] MEDS: LITHIUM CARBONATE 300 MG CAP PO SCH ×2 (08:25→22:20)
[2022-07-26] MEDS: LORazepam 2 MG TAB PO PRN (11:01)
[2022-07-26] MEDS: OLANZapine ORAL DISINTEGRATING TAB 5MG PO PRN (11:01)
[2022-07-26 16:49] VITALS: BP 116/62
[2022-07-27 06:16] VITALS: BP 124/90
[2022-07-27] MEDS: DOCUSATE SODIUM 100MG CAPSULE PO SCH ×2 (09:00→21:39)
[2022-07-27] MEDS: CARIPRAZINE 1.5MG CAPSULE (VRAYLAR) PO SCH (09:10)
[2022-07-27] MEDS: LITHIUM CARBONATE 300 MG CAP PO SCH ×2 (09:10→21:39)
[2022-07-27] MEDS: LORazepam 2 MG TAB PO PRN (10:35)
[2022-07-27 18:22] VITALS: BP 152/86
[2022-07-27] MEDS: traZODone 50 MG TAB PO PRN (21:39)
[2022-07-28 06:15] VITALS: BP 110/55
[2022-07-28] MEDS: LITHIUM CARBONATE 300 MG CAP PO SCH (08:20)
[2022-07-28] MEDS: CARIPRAZINE 1.5MG CAPSULE (VRAYLAR) PO SCH (08:21)
[2022-07-28] MEDS: DOCUSATE SODIUM 100MG CAPSULE PO SCH (08:22)
[2022-07-28] MEDS ORDERED: CLOZ100T5 PO (10:02)
[2022-07-28] MEDS ORDERED: LITH300C PO (10:02)
[2022-07-28] MEDS ORDERED: VRAY1.5C PO (10:02)
[2022-07-28] MEDS ORDERED: TRAZ-252 PO (10:02)
[2022-07-28] MEDS ORDERED: LORA2TA PO (10:02)
[2022-07-28] MEDS ORDERED: INVE234I IM (10:02)
[2022-07-28] MEDS ORDERED: COLA100C5 PO (10:02)
[2022-07-28] MEDS ORDERED: MIRA1POW3 PO (10:02)
== END 2022-07-28 13:33 | disposition home or self-care (01) | DRG 750 ==
LOC: M ED 14:55 → M ED INP 19:10 → M PSY 21:26
PROVIDERS: ADMIT Student in an Organized Health Care Education/Training Program; ATTEND Student in an Organized Health Care Education/Training Program
PROC: B246ZZZ Ultrasonography of Right and Left Heart (ICD-10-PCS; principal; 2022-06-10)
DX: F25.0 Schizoaffective disorder, bipolar type (principal); Z91.14 Patient's other noncompliance with medication regimen; Z63.8 Other specified problems related to primary support group; Z91.199 Patient's noncompliance with other medical treatment and regimen due to unspecified reason; R00.0 Tachycardia, unspecified; D72.829 Elevated white blood cell count, unspecified; R60.0 Localized edema; I27.20 Pulmonary hypertension, unspecified; Z20.822 Contact with and (suspected) exposure to COVID-19; Z79.899 Other long term (current) drug therapy; Z88.0 Allergy status to penicillin; Z91.040 Latex allergy status

== ENCOUNTER 2022-08-03 13:28 | Inpatient (IN) | payer MEDICAID, OTHER ==
[~2022-08-03] VITALS: Ht 172.7 cm; Wt 90.9 kg
[~2022-08-03 13:28] MED LIST changes: +COLA100C5 PO; +LITH300C PO; +LORA2TA PO; +MIRA1POW3 PO; +NYST1POW9 TOP; +TRAZ-252 PO; +VRAY1.5C PO; +med rec comment
[2022-08-03 14:22] LABS: HEMATOCRIT 35.6 % (36.0-47.0); HEMOGLOBIN 11.2 g/dl (12.0-15.5); MEAN CORPUSCULAR HEMOGLOBIN 25.1 pg (27.0-33.0); MEAN CORPUSCULAR HGB CONC 31.5 g/dl (32.0-36.5); MEAN CORPUSCULAR VOLUME 79.6 fl (80.0-96.0); PLATELET COUNT, AUTOMATED 218 10^3/uL (150-450); RED BLOOD COUNT 4.47 10^6/uL (4.00-5.40); WHITE BLOOD COUNT 11.5 10^3/uL (4.0-10.0)
[2022-08-03 14:50] LABS: ETHYL ALCOHOL (ETHANOL) < 0.003 % (0.000-0.010)
[2022-08-03 14:51] LABS: SALICYLATE LEVEL < 3.0 MG/DL (<30)
[2022-08-03 14:52] LABS: ACETAMINOPHEN LEVEL < 2.0 UG/ML (10.0-20.0); ALBUMIN 3.2 G/DL (3.2-5.2); ALKALINE PHOSPHATASE 84 U/L (46-116); ALT/SGPT 17 U/L (7.0-40); AST/SGOT 16 U/L (<34); BILIRUBIN,DIRECT < 0.1 MG/DL (<0.4); BILIRUBIN,TOTAL 0.3 MG/DL (0.3-1.2); BLOOD UREA NITROGEN 10 MG/DL (9-23); CALCIUM LEVEL 8.7 MG/DL (8.5-10.1); CARBON DIOXIDE LEVEL 24 MMOL/L (20-31); CHLORIDE LEVEL 105 MMOL/L (98-107); GLOMERULAR FILTRATION RATE > 60.0 (>58); GLUCOSE, FASTING 97 MG/DL (60-100); POTASSIUM SERUM 3.9 MMOL/L (3.5-5.1); SODIUM LEVEL 137 MMOL/L (136-145); TOTAL PROTEIN 6.6 G/DL (5.7-8.2)
[2022-08-03 14:54] LABS: THYROID STIMULATING HORMONE 2.863 uIU/ML (0.55-4.78)
[2022-08-03] MEDS ORDERED: MIDAZOLAM INJ 2MG/2ML VIAL IM STA (16:12)
[2022-08-03] MEDS ORDERED: OLANZapine INTRAMUSCULAR 10MG VIAL IM ONE ×2 (16:15→19:20)
[2022-08-03] MEDS ORDERED: MIDAZOLAM INJ 2MG/2ML VIAL IM ONE (19:20)
[2022-08-03 19:56] LABS: AMPHETAMINES LEVEL URINE NEGATIVE (NEGATIVE); BARBITURATES URINE NEGATIVE (NEGATIVE); COCAINE METABOLITE URINE NEGATIVE (NEGATIVE); METHADONE URINE NEGATIVE (NEGATIVE); OPIATES URINE NEGATIVE (NEGATIVE)
[2022-08-03 19:57] LABS: CANNABINOIDS URINE NEGATIVE (NEGATIVE); PHENCYCLIDINE URINE NEGATIVE (NEGATIVE)
[2022-08-03 19:58] LABS: BENZODIAZEPINES URINE POSITIVE (NEGATIVE)
[2022-08-03] MEDS ORDERED: MOM 30ML SUSPENSION UDC PO PRN (22:00)
[2022-08-03] MEDS ORDERED: MAALOX 30 ML SUSP *UDC PO PRN (22:00)
[2022-08-03] MEDS ORDERED: INVE234I IM (22:23)
[2022-08-03] MEDS ORDERED: CLOZ100T5 PO (22:23)
[2022-08-03] MEDS ORDERED: NYST1POW9 TOP (22:23)
[2022-08-03] MEDS ORDERED: LITH300C PO (22:23)
[2022-08-03] MEDS ORDERED: ATIV2TAB PO (22:23)
[2022-08-03] MEDS ORDERED: VRAY1.5C PO (22:23)
[2022-08-03] MEDS ORDERED: MIRA1POW3 PO (22:23)
[2022-08-03] MEDS ORDERED: TRAZ1TAB10 PO (22:23)
[2022-08-03] MEDS ORDERED: DOCU100C16 PO (22:23)
[2022-08-03] MEDS: LORazepam 2 MG TAB PO PRN (22:23)
[2022-08-03] MEDS: traZODone 50 MG TAB PO PRN (22:23)
[2022-08-03] MEDS ORDERED: PATIENT COMMENT (22:24)
[2022-08-03] MEDS ORDERED: HOME MED LIST COMPLETE! XX SCH (22:25)
[2022-08-03 22:55] LABS: BASO % 0.3 % (0.0-1.0); EOS # 0.2 10^3/uL (0.0-0.5); EOS % 1.3 % (0.0-3.0); HEMATOCRIT 36.5 % (36.0-47.0); HEMOGLOBIN 11.6 g/dl (12.0-15.5); LYMPH # 2.4 10^3/uL (1.5-5.0); LYMPH % 17.9 % (24.0-44.0); MEAN CORPUSCULAR HEMOGLOBIN 25.4 pg (27.0-33.0); MEAN CORPUSCULAR HGB CONC 31.8 g/dl (32.0-36.5); MEAN CORPUSCULAR VOLUME 79.9 fl (80.0-96.0); MONO # 1.1 10^3/uL (0.0-0.8); MONO % 8.4 % (2.0-8.0); NEUTROPHILS # 9.7 10^3/uL (1.5-8.5); NEUTROPHILS % 71.8 % (36.0-66.0); PLATELET COUNT, AUTOMATED 240 10^3/uL (150-450); RED BLOOD COUNT 4.57 10^6/uL (4.00-5.40); WHITE BLOOD COUNT 13.5 10^3/uL (4.0-10.0)
[2022-08-03] MEDS ORDERED: HALOPERIDOL 5MG/ML 1ML VIAL IM STA (23:04)
[2022-08-03] MEDS ORDERED: diphenhydrAMINE 50MG/ML VIAL IM STA (23:04)
[2022-08-03] MEDS ORDERED: LORazepam 2 MG/ML 1ML VIAL IM STA (23:04)
[2022-08-04] MEDS: LORazepam 2 MG TAB PO PRN (08:26)
[2022-08-04 17:48] VITALS: BP 132/73
[2022-08-05 06:41] VITALS: BP 109/63
[2022-08-05] MEDS: LORazepam 2 MG TAB PO PRN (10:25)
[2022-08-05 18:17] VITALS: BP 142/70
[2022-08-06] MEDS: ACETAMINOPHEN TAB 650MG DOSE (2X325MG) PO PRN (08:40)
[2022-08-06] MEDS: LORazepam 2 MG TAB PO PRN (15:09)
[2022-08-06 16:03] VITALS: BP 130/98
[2022-08-07 06:18] VITALS: BP 123/70
[2022-08-07] MEDS: LORazepam 2 MG TAB PO PRN (10:35)
[2022-08-07 16:13] VITALS: BP 123/67
[2022-08-07] MEDS: traZODone 50 MG TAB PO PRN (20:10)
[2022-08-08] MEDS ORDERED: PALIPERIDONE PAL 234MG/1.5ML INJ (INVEGA)(FREE PSY INPT ONLY) IM SCH (09:00)
[2022-08-08] MEDS: LORazepam 2 MG TAB PO PRN (11:11)
[2022-08-08] MEDS: traZODone 50 MG TAB PO PRN (20:59)
[2022-08-09 06:24] VITALS: BP 118/66
[2022-08-09 11:59] LABS: BASO % 0.5 % (0.0-1.0); EOS # 0.2 10^3/uL (0.0-0.5); EOS % 2.2 % (0.0-3.0); HEMATOCRIT 34.6 % (36.0-47.0); HEMOGLOBIN 10.9 g/dl (12.0-15.5); LYMPH # 1.6 10^3/uL (1.5-5.0); LYMPH % 19.6 % (24.0-44.0); MEAN CORPUSCULAR HEMOGLOBIN 25.2 pg (27.0-33.0); MEAN CORPUSCULAR HGB CONC 31.5 g/dl (32.0-36.5); MEAN CORPUSCULAR VOLUME 80.1 fl (80.0-96.0); MONO # 0.9 10^3/uL (0.0-0.8); MONO % 10.8 % (2.0-8.0); NEUTROPHILS # 5.5 10^3/uL (1.5-8.5); NEUTROPHILS % 66.5 % (36.0-66.0); PLATELET COUNT, AUTOMATED 207 10^3/uL (150-450); RED BLOOD COUNT 4.32 10^6/uL (4.00-5.40); WHITE BLOOD COUNT 8.3 10^3/uL (4.0-10.0)
[2022-08-09 16:28] VITALS: BP 135/76
[2022-08-09] MEDS: LORazepam 2 MG TAB PO PRN (20:59)
[2022-08-09] MEDS: traZODone 50 MG TAB PO PRN (21:00)
[2022-08-10] MEDS: LORazepam 2 MG TAB PO PRN (10:57)
[2022-08-10 12:18] LABS: BASO % 0.5 % (0.0-1.0); EOS # 0.1 10^3/uL (0.0-0.5); EOS % 1.9 % (0.0-3.0); HEMATOCRIT 36.7 % (36.0-47.0); HEMOGLOBIN 11.2 g/dl (12.0-15.5); LYMPH # 1.6 10^3/uL (1.5-5.0); LYMPH % 21.5 % (24.0-44.0); MEAN CORPUSCULAR HEMOGLOBIN 24.7 pg (27.0-33.0); MEAN CORPUSCULAR HGB CONC 30.5 g/dl (32.0-36.5); MEAN CORPUSCULAR VOLUME 80.8 fl (80.0-96.0); MONO # 0.8 10^3/uL (0.0-0.8); MONO % 10.5 % (2.0-8.0); NEUTROPHILS # 4.9 10^3/uL (1.5-8.5); NEUTROPHILS % 65.3 % (36.0-66.0); PLATELET COUNT, AUTOMATED 241 10^3/uL (150-450); RED BLOOD COUNT 4.54 10^6/uL (4.00-5.40); WHITE BLOOD COUNT 7.5 10^3/uL (4.0-10.0)
[2022-08-10 19:05] VITALS: BP 137/62
[2022-08-10] MEDS: traZODone 50 MG TAB PO PRN (21:05)
[2022-08-11] MEDS ORDERED: FOSFOMYCIN TROMETHAMINE 3 GM POWDER PACKET (MONUROL) PO ONE ×2 (01:00→18:45)
[2022-08-11 06:12] VITALS: BP 104/65
[2022-08-11] MEDS: LORazepam 1 MG TAB PO SCH ×2 (10:50→21:15)
[2022-08-11] MEDS: ACETAMINOPHEN TAB 650MG DOSE (2X325MG) PO PRN (10:51)
[2022-08-11 18:25] VITALS: BP 118/56
[2022-08-11] MEDS: traZODone 50 MG TAB PO PRN (21:16)
[2022-08-12 06:42] VITALS: BP 112/56
[2022-08-12] MEDS: LORazepam 1 MG TAB PO SCH ×2 (08:58→21:03)
[2022-08-12 16:38] VITALS: BP 113/60
[2022-08-12] MEDS: traZODone 50 MG TAB PO PRN (21:03)
[2022-08-13 06:34] VITALS: BP 130/85
[2022-08-13] MEDS: LORazepam 1 MG TAB PO SCH ×2 (07:31→21:16)
[2022-08-13 16:41] VITALS: BP 108/59
[2022-08-13] MEDS: traZODone 50 MG TAB PO PRN (21:16)
[2022-08-14 06:18] VITALS: BP 130/56
[2022-08-14] MEDS: LORazepam 1 MG TAB PO SCH ×2 (08:24→20:39)
[2022-08-14 15:36] VITALS: BP 119/60
[2022-08-14] MEDS: LORazepam 2 MG TAB PO PRN (16:22)
[2022-08-14] MEDS: traZODone 50 MG TAB PO PRN (20:39)
[2022-08-15] MEDS: LORazepam 1 MG TAB PO SCH ×2 (09:42→20:37)
[2022-08-15 17:11] VITALS: BP 129/66
[2022-08-15] MEDS: traZODone 50 MG TAB PO PRN (20:37)
[2022-08-16] MEDS: LORazepam 1 MG TAB PO SCH ×2 (09:45→20:46)
[2022-08-16 17:51] VITALS: BP_SYST 138; BP_SYST 141; BP_DIAS 75; BP_DIAS 84
[2022-08-16] MEDS: traZODone 50 MG TAB PO PRN (20:46)
[2022-08-17 06:51] LABS: BASO # 0.1 10^3/uL (0.0-0.2); BASO % 0.7 % (0.0-1.0); EOS # 0.2 10^3/uL (0.0-0.5); HEMATOCRIT 32.7 % (36.0-47.0); HEMOGLOBIN 9.9 g/dl (12.0-15.5); LYMPH # 2.2 10^3/uL (1.5-5.0); LYMPH % 30.3 % (24.0-44.0); MEAN CORPUSCULAR HEMOGLOBIN 24.4 pg (27.0-33.0); MEAN CORPUSCULAR HGB CONC 30.3 g/dl (32.0-36.5); MEAN CORPUSCULAR VOLUME 80.7 fl (80.0-96.0); MONO # 0.8 10^3/uL (0.0-0.8); MONO % 11.4 % (2.0-8.0); NEUTROPHILS % 54.3 % (36.0-66.0); PLATELET COUNT, AUTOMATED 194 10^3/uL (150-450); RED BLOOD COUNT 4.05 10^6/uL (4.00-5.40); WHITE BLOOD COUNT 7.4 10^3/uL (4.0-10.0)
[2022-08-17 06:53] VITALS: BP 120/72
[2022-08-17] MEDS: LORazepam 1 MG TAB PO SCH ×2 (09:32→22:15)
[2022-08-17 18:16] VITALS: BP 109/72
[2022-08-17] MEDS: traZODone 50 MG TAB PO PRN (22:15)
[2022-08-18 06:57] VITALS: BP 127/64
[2022-08-18] MEDS: LORazepam 1 MG TAB PO SCH ×2 (09:54→21:58)
[2022-08-18] MEDS: LORazepam 2 MG TAB PO PRN (15:54)
[2022-08-18 17:40] VITALS: BP 122/60
[2022-08-18] MEDS: traZODone 50 MG TAB PO PRN (21:58)
[2022-08-19 06:04] VITALS: BP 126/64
[2022-08-19] MEDS: LORazepam 1 MG TAB PO SCH ×2 (09:40→20:59)
[2022-08-19] MEDS: LORazepam 2 MG TAB PO PRN (15:30)
[2022-08-19 17:54] VITALS: BP 145/86
[2022-08-19] MEDS: traZODone 50 MG TAB PO PRN (20:59)
[2022-08-20 06:06] VITALS: BP 113/69
[2022-08-20] MEDS: LORazepam 1 MG TAB PO SCH ×2 (08:47→20:14)
[2022-08-20] MEDS: LORazepam 2 MG TAB PO PRN (15:24)
[2022-08-20 17:58] VITALS: BP 143/66
[2022-08-20] MEDS: traZODone 50 MG TAB PO PRN (20:14)
[2022-08-21 06:14] VITALS: BP 120/63
[2022-08-21] MEDS: LORazepam 1 MG TAB PO SCH ×2 (10:03→20:45)
[2022-08-21 18:54] VITALS: BP 129/68
[2022-08-21] MEDS: traZODone 50 MG TAB PO PRN (20:44)
[2022-08-22 06:38] VITALS: BP 116/56
[2022-08-22 06:41] VITALS: BP 96/52
[2022-08-22] MEDS: LORazepam 1 MG TAB PO SCH ×2 (09:50→21:21)
[2022-08-22 16:21] VITALS: BP 120/73
[2022-08-22] MEDS: traZODone 50 MG TAB PO PRN (21:21)
[2022-08-23 06:36] VITALS: BP 132/76
[2022-08-23] MEDS: LORazepam 1 MG TAB PO SCH ×2 (09:23→21:30)
[2022-08-23 16:34] VITALS: BP 115/80
[2022-08-23] MEDS: traZODone 50 MG TAB PO PRN (21:30)
[2022-08-24 07:10] LABS: BASO % 0.5 % (0.0-1.0); EOS # 0.2 10^3/uL (0.0-0.5); EOS % 2.9 % (0.0-3.0); HEMATOCRIT 32.4 % (36.0-47.0); HEMOGLOBIN 9.9 g/dl (12.0-15.5); LYMPH # 1.7 10^3/uL (1.5-5.0); LYMPH % 21.9 % (24.0-44.0); MEAN CORPUSCULAR HEMOGLOBIN 24.6 pg (27.0-33.0); MEAN CORPUSCULAR HGB CONC 30.6 g/dl (32.0-36.5); MEAN CORPUSCULAR VOLUME 80.6 fl (80.0-96.0); MONO # 0.8 10^3/uL (0.0-0.8); MONO % 10.9 % (2.0-8.0); NEUTROPHILS # 4.9 10^3/uL (1.5-8.5); NEUTROPHILS % 63.5 % (36.0-66.0); PLATELET COUNT, AUTOMATED 196 10^3/uL (150-450); RED BLOOD COUNT 4.02 10^6/uL (4.00-5.40); WHITE BLOOD COUNT 7.6 10^3/uL (4.0-10.0)
[2022-08-24] MEDS: LORazepam 1 MG TAB PO SCH ×2 (08:57→21:33)
[2022-08-24] MEDS: LORazepam 2 MG TAB PO PRN (17:12)
[2022-08-24 17:14] VITALS: BP 119/80
[2022-08-24] MEDS: traZODone 50 MG TAB PO PRN (21:33)
[2022-08-25 06:15] VITALS: BP 117/74
[2022-08-25] MEDS: LORazepam 1 MG TAB PO SCH ×2 (09:09→20:37)
[2022-08-25 16:38] VITALS: BP 125/72
[2022-08-25] MEDS: traZODone 50 MG TAB PO PRN (20:37)
[2022-08-26 06:32] VITALS: BP 105/67
[2022-08-26] MEDS: LORazepam 1 MG TAB PO SCH ×2 (08:43→20:21)
[2022-08-26 16:22] VITALS: BP 124/70
[2022-08-26] MEDS: traZODone 50 MG TAB PO PRN (20:21)
[2022-08-27 06:58] VITALS: BP 148/86
[2022-08-27] MEDS: LORazepam 1 MG TAB PO SCH ×2 (09:19→20:13)
[2022-08-27 16:42] VITALS: BP 112/78
[2022-08-28 06:46] VITALS: BP 134/67
[2022-08-28] MEDS: LORazepam 1 MG TAB PO SCH ×2 (08:44→21:22)
[2022-08-28] MEDS ORDERED: BENZTROPINE 1 MG TAB PO PRN (09:45)
[2022-08-28] MEDS: LORazepam 2 MG TAB PO PRN (17:31)
[2022-08-28 17:59] VITALS: BP 145/71
[2022-08-28] MEDS: traZODone 50 MG TAB PO PRN (21:22)
[2022-08-29] MEDS: LORazepam 1 MG TAB PO SCH ×2 (09:46→22:17)
[2022-08-29 19:12] VITALS: BP 136/73
[2022-08-29] MEDS: traZODone 50 MG TAB PO PRN (22:17)
[2022-08-29 22:21] VITALS: BP 130/94
[2022-08-30 06:26] VITALS: BP 103/55
[2022-08-30] MEDS: LORazepam 1 MG TAB PO SCH ×2 (11:00→21:18)
[2022-08-30 17:58] VITALS: BP 121/72
[2022-08-30] MEDS: traZODone 50 MG TAB PO PRN (21:19)
[2022-08-31 06:51] VITALS: BP 102/58
[2022-08-31 07:05] LABS: BASO % 0.2 % (0.0-1.0); EOS # 0.1 10^3/uL (0.0-0.5); EOS % 0.6 % (0.0-3.0); HEMATOCRIT 32.2 % (36.0-47.0); HEMOGLOBIN 9.9 g/dl (12.0-15.5); LYMPH # 2.4 10^3/uL (1.5-5.0); LYMPH % 18.5 % (24.0-44.0); MEAN CORPUSCULAR HEMOGLOBIN 24.6 pg (27.0-33.0); MEAN CORPUSCULAR HGB CONC 30.7 g/dl (32.0-36.5); MEAN CORPUSCULAR VOLUME 80.1 fl (80.0-96.0); MONO % 7.7 % (2.0-8.0); NEUTROPHILS # 9.3 10^3/uL (1.5-8.5); NEUTROPHILS % 72.5 % (36.0-66.0); PLATELET COUNT, AUTOMATED 197 10^3/uL (150-450); RED BLOOD COUNT 4.02 10^6/uL (4.00-5.40); WHITE BLOOD COUNT 12.8 10^3/uL (4.0-10.0)
[2022-08-31] MEDS: LORazepam 1 MG TAB PO SCH ×2 (09:41→21:09)
[2022-08-31 18:55] VITALS: BP 109/66
[2022-08-31] MEDS: traZODone 50 MG TAB PO PRN (21:09)
[2022-09-01 06:35] VITALS: BP 125/63
[2022-09-01] MEDS ORDERED: HALOPERIDOL DECANOATE 100 MG/ML 1ML VIAL IM SCH (09:00)
[2022-09-01] MEDS: LORazepam 1 MG TAB PO SCH ×2 (09:08→20:13)
[2022-09-01] MEDS: MEGESTROL 40MG TAB PO SCH ×2 (10:37→20:13)
[2022-09-01] MEDS: traZODone 50 MG TAB PO PRN (20:13)
[2022-09-02] MEDS: LORazepam 1 MG TAB PO SCH ×2 (08:32→20:37)
[2022-09-02] MEDS: MEGESTROL 40MG TAB PO SCH ×2 (08:33→20:37)
[2022-09-02 18:00] VITALS: BP 121/70
[2022-09-02] MEDS: traZODone 50 MG TAB PO PRN (20:38)
[2022-09-03 06:10] VITALS: BP 131/75
[2022-09-03] MEDS: LORazepam 1 MG TAB PO SCH ×2 (09:10→21:56)
[2022-09-03] MEDS: MEGESTROL 40MG TAB PO SCH ×2 (09:10→21:56)
[2022-09-03] MEDS: traZODone 50 MG TAB PO PRN (21:56)
[2022-09-04 06:21] VITALS: BP 112/70
[2022-09-04] MEDS: LORazepam 1 MG TAB PO SCH ×2 (09:38→22:51)
[2022-09-04] MEDS: MEGESTROL 40MG TAB PO SCH ×2 (09:38→22:51)
[2022-09-04 17:49] VITALS: BP 131/63
[2022-09-05 06:21] VITALS: BP 135/69
[2022-09-05] MEDS: LORazepam 1 MG TAB PO SCH ×2 (09:19→21:56)
[2022-09-05] MEDS: MEGESTROL 40MG TAB PO SCH ×2 (09:39→21:56)
[2022-09-05 16:23] VITALS: BP 131/70
[2022-09-06 06:38] VITALS: BP 113/59
[2022-09-06] MEDS: LORazepam 1 MG TAB PO SCH ×2 (08:55→20:51)
[2022-09-06] MEDS: MEGESTROL 40MG TAB PO SCH ×2 (08:57→20:51)
[2022-09-06 17:58] VITALS: BP 131/64
[2022-09-06] MEDS: traZODone 50 MG TAB PO PRN (20:50)
[2022-09-07 06:09] VITALS: BP 105/63
[2022-09-07 07:11] LABS: BASO # 0.1 10^3/uL (0.0-0.2); BASO % 0.5 % (0.0-1.0); EOS # 0.2 10^3/uL (0.0-0.5); EOS % 1.6 % (0.0-3.0); HEMATOCRIT 38.1 % (36.0-47.0); HEMOGLOBIN 11.7 g/dl (12.0-15.5); LYMPH # 2.7 10^3/uL (1.5-5.0); LYMPH % 27.5 % (24.0-44.0); MEAN CORPUSCULAR HEMOGLOBIN 24.9 pg (27.0-33.0); MEAN CORPUSCULAR HGB CONC 30.7 g/dl (32.0-36.5); MEAN CORPUSCULAR VOLUME 81.1 fl (80.0-96.0); NEUTROPHILS # 5.9 10^3/uL (1.5-8.5); NEUTROPHILS % 59.9 % (36.0-66.0); PLATELET COUNT, AUTOMATED 245 10^3/uL (150-450); WHITE BLOOD COUNT 9.8 10^3/uL (4.0-10.0)
[2022-09-07] MEDS: MEGESTROL 40MG TAB PO SCH ×2 (09:44→20:37)
[2022-09-07] MEDS: LORazepam 1 MG TAB PO SCH ×2 (09:44→20:37)
[2022-09-07 18:51] VITALS: BP 138/64
[2022-09-07] MEDS: traZODone 50 MG TAB PO PRN (20:37)
[2022-09-08 05:57] VITALS: BP 104/58
[2022-09-08] MEDS: MEGESTROL 40MG TAB PO SCH ×2 (09:15→21:35)
[2022-09-08] MEDS: LORazepam 1 MG TAB PO SCH ×2 (09:16→21:35)
[2022-09-08 12:59] VITALS: BP 104/58
[2022-09-08 16:11] VITALS: BP 116/75
[2022-09-08] MEDS: traZODone 50 MG TAB PO PRN (21:35)
[2022-09-09 06:16] VITALS: BP 124/60
[2022-09-09] MEDS: MEGESTROL 40MG TAB PO SCH ×2 (08:32→20:05)
[2022-09-09] MEDS: LORazepam 1 MG TAB PO SCH ×2 (08:32→20:05)
[2022-09-09 16:18] VITALS: BP 121/71
[2022-09-09] MEDS: traZODone 50 MG TAB PO PRN (20:05)
[2022-09-10 06:46] VITALS: BP 121/70
[2022-09-10] MEDS: MEGESTROL 40MG TAB PO SCH ×2 (09:26→20:56)
[2022-09-10] MEDS: LORazepam 1 MG TAB PO SCH ×2 (09:27→20:56)
[2022-09-10 18:34] VITALS: BP 116/59
[2022-09-11 05:55] VITALS: BP 124/73
[2022-09-11] MEDS ORDERED: ATIV1TAB7 PO (08:35)
[2022-09-11] MEDS ORDERED: MEGE40TA3 PO (08:35)
[2022-09-11] MEDS ORDERED: CLOZ100T5 PO (08:35)
[2022-09-11] MEDS ORDERED: HALO5TAB33 PO (08:35)
[2022-09-11] MEDS ORDERED: HALO10AM IM (08:35)
[2022-09-11] MEDS ORDERED: BENZ1TAB5 PO (08:35)
[2022-09-11] MEDS: LORazepam 1 MG TAB PO SCH (09:06)
[2022-09-11] MEDS: MEGESTROL 40MG TAB PO SCH (09:06)
== END 2022-09-11 13:28 | disposition home or self-care (01) | DRG 750 ==
LOC: M ED 13:28 → M ED INP 21:57 → M PSY 22:17
PROVIDERS: ADMIT Student in an Organized Health Care Education/Training Program; ATTEND Student in an Organized Health Care Education/Training Program
DX: F20.9 Schizophrenia, unspecified (principal); D72.829 Elevated white blood cell count, unspecified; C54.1 Malignant neoplasm of endometrium; G47.00 Insomnia, unspecified; N93.9 Abnormal uterine and vaginal bleeding, unspecified; Z20.822 Contact with and (suspected) exposure to COVID-19; Z79.899 Other long term (current) drug therapy; Z88.0 Allergy status to penicillin; Z91.040 Latex allergy status; Z78.1 Physical restraint status

== ENCOUNTER 2022-08-29 07:49 | Day surgery (SDC) | payer OTHER ==
[~2022-08-29 07:49] MED LIST changes: +ATIV2TAB PO; +DOCU100C16 PO; +PATIENT COMMENT; +TRAZ1TAB10 PO
[2022-08-29] MEDS ORDERED: LIDOCAINE 2% 100MG/5ML SDV (FOR ANES.) As Ordered ONE (20:11)
[2022-08-29] MEDS ORDERED: MIDAZOLAM INJ 2MG/2ML VIAL As Ordered ONE (20:11)
[2022-08-29] MEDS ORDERED: propofoL 200 MG/20 ML VIAL As Ordered ONE (20:11)
[2022-08-29] MEDS ORDERED: fentaNYL 100 MCG/2 ML INJECTION As Ordered ONE (20:12)
[2022-08-29] MEDS ORDERED: ACETAMINOPHEN 1000MG 100ML IV BAG As Ordered ONE (21:12)
[2022-08-29] MEDS ORDERED: ONDANSETRON 4MG 2ML VIAL As Ordered ONE (21:12)
[2022-08-29] MEDS ORDERED: KETOROLAC 60MG 2ML VIAL As Ordered ONE (21:12)
[2022-08-29] MEDS ORDERED: ONDANSETRON 4MG 2ML VIAL IV PRN (21:30)
[2022-08-29] MEDS ORDERED: MORPHINE 2 MG/ML 1ML VIAL IV PRN (21:30)
[2022-08-29] MEDS ORDERED: fentaNYL 100 MCG/2 ML INJECTION IV PRN (21:30)
[2022-08-29] MEDS ORDERED: oxyCODONE 5MG TAB PO PRN (21:30)
[2022-08-29 22:01] VITALS: BP 121/60
== END 2022-08-29 22:08 | disposition other institution (70) ==
LOC: M SDC 07:49
PROVIDERS: ATTEND Specialist
DX: C54.1 Malignant neoplasm of endometrium (principal); F20.9 Schizophrenia, unspecified; F41.9 Anxiety disorder, unspecified; F32.A Depression, unspecified; Z79.899 Other long term (current) drug therapy; Z88.0 Allergy status to penicillin; Z91.040 Latex allergy status
CPT/HCPCS: 58558; J0131; J1100; J1885; J2250; J2405; J3010

== ENCOUNTER → 2022-10-31 | Outpatient (CLI) | payer OTHER, MEDICAID ==
[~2022-10-31] MED LIST changes: +ATIV1TAB7 PO; +BENZ1TAB5 PO; +HALO10AM IM; +HALO5TAB33 PO; +MEGE40TA3 PO
[2022-10-31 14:41] LABS: BASO # 0.1 10^3/uL (0.0-0.2); BASO % 0.6 % (0.0-1.0); EOS # 0.1 10^3/uL (0.0-0.5); EOS % 1.5 % (0.0-3.0); HEMATOCRIT 41.2 % (36.0-47.0); LYMPH # 1.8 10^3/uL (1.5-5.0); LYMPH % 23.1 % (24.0-44.0); MEAN CORPUSCULAR HEMOGLOBIN 26.2 pg (27.0-33.0); MEAN CORPUSCULAR HGB CONC 31.6 g/dl (32.0-36.5); MEAN CORPUSCULAR VOLUME 82.9 fl (80.0-96.0); MONO # 0.7 10^3/uL (0.0-0.8); MONO % 9.3 % (2.0-8.0); NEUTROPHILS # 5.1 10^3/uL (1.5-8.5); NEUTROPHILS % 65.1 % (36.0-66.0); PLATELET COUNT, AUTOMATED 251 10^3/uL (150-450); RED BLOOD COUNT 4.97 10^6/uL (4.00-5.40); WHITE BLOOD COUNT 7.9 10^3/uL (4.0-10.0)
== END ==
LOC: M PLALAB 10:10
PROVIDERS: ATTEND Psychiatry & Neurology Psychiatry
DX: F25.0 Schizoaffective disorder, bipolar type (principal)

== ENCOUNTER → 2022-11-10 | Outpatient (CLI) | payer OTHER, MEDICAID ==
[2022-11-10 13:21] LABS: BASO % 0.4 % (0.0-1.0); EOS # 0.2 10^3/uL (0.0-0.5); EOS % 1.8 % (0.0-3.0); HEMATOCRIT 42.1 % (36.0-47.0); HEMOGLOBIN 13.6 g/dl (12.0-15.5); LYMPH # 1.6 10^3/uL (1.5-5.0); LYMPH % 20.1 % (24.0-44.0); MEAN CORPUSCULAR HGB CONC 32.3 g/dl (32.0-36.5); MEAN CORPUSCULAR VOLUME 83.5 fl (80.0-96.0); MONO # 0.7 10^3/uL (0.0-0.8); MONO % 8.7 % (2.0-8.0); NEUTROPHILS # 5.6 10^3/uL (1.5-8.5); NEUTROPHILS % 68.8 % (36.0-66.0); PLATELET COUNT, AUTOMATED 196 10^3/uL (150-450); RED BLOOD COUNT 5.04 10^6/uL (4.00-5.40); WHITE BLOOD COUNT 8.2 10^3/uL (4.0-10.0)
== END ==
LOC: M PLALAB 09:08
PROVIDERS: ATTEND Psychiatry & Neurology Psychiatry
DX: F25.0 Schizoaffective disorder, bipolar type (principal)

== ENCOUNTER → 2022-11-17 | Outpatient (CLI) | payer OTHER ==
[2022-11-17 16:01] LABS: BASO # 0.1 10^3/uL (0.0-0.2); BASO % 0.5 % (0.0-1.0); EOS # 0.2 10^3/uL (0.0-0.5); EOS % 1.5 % (0.0-3.0); HEMATOCRIT 41.9 % (36.0-47.0); HEMOGLOBIN 13.6 g/dl (12.0-15.5); LYMPH # 1.9 10^3/uL (1.5-5.0); MEAN CORPUSCULAR HGB CONC 32.5 g/dl (32.0-36.5); MEAN CORPUSCULAR VOLUME 83.1 fl (80.0-96.0); MONO # 0.8 10^3/uL (0.0-0.8); MONO % 8.2 % (2.0-8.0); NEUTROPHILS # 6.8 10^3/uL (1.5-8.5); NEUTROPHILS % 70.4 % (36.0-66.0); PLATELET COUNT, AUTOMATED 223 10^3/uL (150-450); RED BLOOD COUNT 5.04 10^6/uL (4.00-5.40); WHITE BLOOD COUNT 9.7 10^3/uL (4.0-10.0)
== END ==
LOC: M PLALAB 13:59
PROVIDERS: ATTEND Psychiatry & Neurology Psychiatry
DX: F25.0 Schizoaffective disorder, bipolar type (principal)

== ENCOUNTER → 2022-11-24 | Outpatient (CLI) | payer OTHER, MEDICAID ==
[2022-11-24 13:33] LABS: BASO # 0.1 10^3/uL (0.0-0.2); BASO % 0.4 % (0.0-1.0); EOS # 0.1 10^3/uL (0.0-0.5); EOS % 0.7 % (0.0-3.0); HEMOGLOBIN 13.6 g/dl (12.0-15.5); LYMPH # 1.8 10^3/uL (1.5-5.0); LYMPH % 16.3 % (24.0-44.0); MEAN CORPUSCULAR HEMOGLOBIN 27.1 pg (27.0-33.0); MEAN CORPUSCULAR HGB CONC 32.4 g/dl (32.0-36.5); MEAN CORPUSCULAR VOLUME 83.7 fl (80.0-96.0); MONO # 0.6 10^3/uL (0.0-0.8); MONO % 5.3 % (2.0-8.0); NEUTROPHILS # 8.6 10^3/uL (1.5-8.5); NEUTROPHILS % 76.9 % (36.0-66.0); PLATELET COUNT, AUTOMATED 233 10^3/uL (150-450); RED BLOOD COUNT 5.02 10^6/uL (4.00-5.40); WHITE BLOOD COUNT 11.2 10^3/uL (4.0-10.0)
== END ==
LOC: M PLALAB 11:57
PROVIDERS: ATTEND Psychiatry & Neurology Psychiatry
DX: F25.0 Schizoaffective disorder, bipolar type (principal)

== ENCOUNTER → 2022-11-29 | Outpatient (CLI) | payer OTHER, MEDICAID ==
[2022-11-29 18:44] LABS: BASO # 0.1 10^3/uL (0.0-0.2); BASO % 0.6 % (0.0-1.0); EOS # 0.1 10^3/uL (0.0-0.5); EOS % 1.6 % (0.0-3.0); HEMATOCRIT 44.4 % (36.0-47.0); HEMOGLOBIN 14.1 g/dl (12.0-15.5); LYMPH # 2.2 10^3/uL (1.5-5.0); LYMPH % 26.6 % (24.0-44.0); MEAN CORPUSCULAR HGB CONC 31.8 g/dl (32.0-36.5); MEAN CORPUSCULAR VOLUME 84.9 fl (80.0-96.0); MONO # 0.7 10^3/uL (0.0-0.8); MONO % 8.1 % (2.0-8.0); NEUTROPHILS # 5.3 10^3/uL (1.5-8.5); NEUTROPHILS % 62.9 % (36.0-66.0); PLATELET COUNT, AUTOMATED 252 10^3/uL (150-450); RED BLOOD COUNT 5.23 10^6/uL (4.00-5.40); WHITE BLOOD COUNT 8.4 10^3/uL (4.0-10.0)
== END ==
LOC: M PLALAB 14:15
PROVIDERS: ATTEND Psychiatry & Neurology Psychiatry
DX: F25.0 Schizoaffective disorder, bipolar type (principal)

== ENCOUNTER → 2023-01-26 | Outpatient (CLI) | payer OTHER ==
[2023-01-26 15:37] LABS: BASO % 0.5 % (0.0-1.0); EOS # 0.1 10^3/uL (0.0-0.5); EOS % 1.5 % (0.0-3.0); HEMATOCRIT 42.7 % (36.0-47.0); LYMPH % 25.1 % (24.0-44.0); MEAN CORPUSCULAR HEMOGLOBIN 28.1 pg (27.0-33.0); MEAN CORPUSCULAR HGB CONC 32.8 g/dl (32.0-36.5); MEAN CORPUSCULAR VOLUME 85.7 fl (80.0-96.0); MONO # 0.7 10^3/uL (0.0-0.8); MONO % 8.5 % (2.0-8.0); NEUTROPHILS # 5.1 10^3/uL (1.5-8.5); NEUTROPHILS % 63.9 % (36.0-66.0); PLATELET COUNT, AUTOMATED 211 10^3/uL (150-450); RED BLOOD COUNT 4.98 10^6/uL (4.00-5.40)
== END ==
LOC: M PLALAB 13:25
PROVIDERS: ATTEND Psychiatry & Neurology Psychiatry
DX: F25.0 Schizoaffective disorder, bipolar type (principal)

== ENCOUNTER → 2023-03-23 | Outpatient (CLI) | payer OTHER ==
[2023-03-23 17:08] LABS: BASO % 0.5 % (0.0-1.0); EOS # 0.2 10^3/uL (0.0-0.5); EOS % 3.1 % (0.0-3.0); HEMATOCRIT 43.7 % (36.0-47.0); HEMOGLOBIN 14.5 g/dl (12.0-15.5); LYMPH # 2.1 10^3/uL (1.5-5.0); LYMPH % 26.5 % (24.0-44.0); MEAN CORPUSCULAR HEMOGLOBIN 29.1 pg (27.0-33.0); MEAN CORPUSCULAR HGB CONC 33.2 g/dl (32.0-36.5); MEAN CORPUSCULAR VOLUME 87.6 fl (80.0-96.0); MONO # 0.9 10^3/uL (0.0-0.8); MONO % 11.3 % (2.0-8.0); NEUTROPHILS # 4.6 10^3/uL (1.5-8.5); NEUTROPHILS % 58.2 % (36.0-66.0); PLATELET COUNT, AUTOMATED 189 10^3/uL (150-450); RED BLOOD COUNT 4.99 10^6/uL (4.00-5.40); WHITE BLOOD COUNT 7.8 10^3/uL (4.0-10.0)
== END ==
LOC: M PLALAB 13:53
DX: F25.0 Schizoaffective disorder, bipolar type (principal)

== ENCOUNTER 2023-04-15 19:23 | Emergency (ER) | payer OTHER ==
[~2023-04-15] VITALS: Ht 172.7 cm; Wt 104.3 kg
[2023-04-15 22:18] LABS: BASO % 0.3 % (0.0-1.0); EOS # 0.1 10^3/uL (0.0-0.5); EOS % 1.3 % (0.0-3.0); HEMATOCRIT 41.2 % (36.0-47.0); HEMOGLOBIN 13.8 g/dl (12.0-15.5); LYMPH % 21.7 % (24.0-44.0); MEAN CORPUSCULAR HEMOGLOBIN 29.1 pg (27.0-33.0); MEAN CORPUSCULAR HGB CONC 33.5 g/dl (32.0-36.5); MEAN CORPUSCULAR VOLUME 86.9 fl (80.0-96.0); MONO # 1.1 10^3/uL (0.0-0.8); MONO % 11.5 % (2.0-8.0); NEUTROPHILS # 6.1 10^3/uL (1.5-8.5); PLATELET COUNT, AUTOMATED 256 10^3/uL (150-450); RED BLOOD COUNT 4.74 10^6/uL (4.00-5.40); WHITE BLOOD COUNT 9.4 10^3/uL (4.0-10.0)
[2023-04-15 22:39] LABS: ALBUMIN 3.5 G/DL (3.2-5.2); ALKALINE PHOSPHATASE 91 U/L (46-116); ALT/SGPT 32 U/L (7.0-40); AST/SGOT 28 U/L (<34); BILIRUBIN,TOTAL 0.5 MG/DL (0.3-1.2); BLOOD UREA NITROGEN 8 MG/DL (9-23); CALCIUM LEVEL 9.2 MG/DL (8.5-10.1); CARBON DIOXIDE LEVEL 26 MMOL/L (20-31); CHLORIDE LEVEL 105 MMOL/L (98-107); CHOLESTEROL LEVEL 183 MG/DL (<200); CHOLESTEROL RISK RATIO 3.83 (<5); CREATININE FOR GFR 0.63 MG/DL (0.55-1.30); GLOMERULAR FILTRATION RATE > 60.0 (>58); GLUCOSE, FASTING 105 MG/DL (60-100); HDL CHOLESTEROL 47.7 MG/DL (>40); LDL CHOLESTEROL 108.5 MG/DL (<100); MAGNESIUM LEVEL 2.1 MG/DL (1.8-2.4); NON-HDL-C 135.3 MG/DL; POTASSIUM SERUM 3.8 MMOL/L (3.5-5.1); SODIUM LEVEL 140 MMOL/L (136-145); TOTAL PROTEIN 6.7 G/DL (5.7-8.2); TRIGLYCERIDES LEVEL 134 MG/DL (<150)
[2023-04-15] MEDS ORDERED: CLOZ100T5 PO (22:48)
[2023-04-15] MEDS ORDERED: HALO5TAB33 PO (22:48)
[2023-04-15 23:08] VITALS: BP 118/76; TEMP 98.4; O2SAT 99
== END 2023-04-15 23:09 | disposition home or self-care (01) ==
LOC: M ED 19:23
DX: Z76.0 Encounter for issue of repeat prescription (principal); F20.81 Schizophreniform disorder; F31.9 Bipolar disorder, unspecified; Z88.0 Allergy status to penicillin; Z91.040 Latex allergy status; Z79.899 Other long term (current) drug therapy
CPT/HCPCS: 36415; 80053; 80061; 83735; 85025; 93005; 99283; S0136

== ENCOUNTER 2023-05-18 21:58 | Inpatient (IN) | payer MEDICAID, OTHER ==
[~2023-05-18] VITALS: Ht 172.7 cm; Wt 100.6 kg
[2023-05-18 23:05] LABS: HEMATOCRIT 43.7 % (36.0-47.0); HEMOGLOBIN 14.5 g/dl (12.0-15.5); MEAN CORPUSCULAR HEMOGLOBIN 28.7 pg (27.0-33.0); MEAN CORPUSCULAR HGB CONC 33.2 g/dl (32.0-36.5); MEAN CORPUSCULAR VOLUME 86.5 fl (80.0-96.0); PLATELET COUNT, AUTOMATED 215 10^3/uL (150-450); RED BLOOD COUNT 5.05 10^6/uL (4.00-5.40); WHITE BLOOD COUNT 9.6 10^3/uL (4.0-10.0)
[2023-05-18 23:26] LABS: ETHYL ALCOHOL (ETHANOL) < 0.003 % (0.000-0.010)
[2023-05-18 23:27] LABS: ALBUMIN 3.6 G/DL (3.2-5.2); ALKALINE PHOSPHATASE 98 U/L (46-116); ALT/SGPT 30 U/L (7.0-40); AST/SGOT 17 U/L (<34); BILIRUBIN,DIRECT 0.1 MG/DL (<0.4); BILIRUBIN,TOTAL 0.4 MG/DL (0.3-1.2); BLOOD UREA NITROGEN 15 MG/DL (9-23); CALCIUM LEVEL 10.2 MG/DL (8.5-10.1); CARBON DIOXIDE LEVEL 26 MMOL/L (20-31); CHLORIDE LEVEL 105 MMOL/L (98-107); CREATININE FOR GFR 0.67 MG/DL (0.55-1.30); GLOMERULAR FILTRATION RATE > 60.0 (>58); GLUCOSE, FASTING 117 MG/DL (60-100); HCG, SERUM QUALITATIVE NEGATIVE (NEGATIVE); POTASSIUM SERUM 3.7 MMOL/L (3.5-5.1); SALICYLATE LEVEL < 3.0 MG/DL (<30); SODIUM LEVEL 140 MMOL/L (136-145); TOTAL PROTEIN 6.6 G/DL (5.7-8.2)
[2023-05-18 23:30] LABS: THYROID STIMULATING HORMONE 3.598 uIU/ML (0.55-4.78)
[2023-05-18] MEDS ORDERED: HALD100I2 IM (23:52)
[2023-05-18] MEDS ORDERED: CLOZ100T5 PO (23:53)
[2023-05-18] MEDS ORDERED: HOME MED LIST COMPLETE! XX SCH (23:55)
[2023-05-19 01:56] LABS: AMPHETAMINES LEVEL URINE NEGATIVE (NEGATIVE); BARBITURATES URINE NEGATIVE (NEGATIVE); BENZODIAZEPINES URINE NEGATIVE (NEGATIVE); CANNABINOIDS URINE NEGATIVE (NEGATIVE); COCAINE METABOLITE URINE NEGATIVE (NEGATIVE); METHADONE URINE NEGATIVE (NEGATIVE); OPIATES URINE NEGATIVE (NEGATIVE); PHENCYCLIDINE URINE NEGATIVE (NEGATIVE)
[2023-05-19] MEDS ORDERED: diphenhydrAMINE 25MG CAP PO PRN (02:30)
[2023-05-19] MEDS ORDERED: IBUPROFEN 400MG TAB PO PRN (02:30)
[2023-05-19] MEDS ORDERED: ACETAMINOPHEN TAB 650MG DOSE (2X325MG) PO PRN (02:30)
[2023-05-19] MEDS ORDERED: MOM 30ML SUSPENSION UDC PO PRN (02:30)
[2023-05-19] MEDS ORDERED: MAALOX 30 ML SUSP *UDC PO PRN (02:30)
[2023-05-19 03:58] VITALS: BP 114/63; TEMP 96.4; O2SAT 98
[2023-05-19] MEDS: OMEPRAZOLE 20MG CAP PO SCH (10:42)
[2023-05-19 15:48] VITALS: BP 120/64; TEMP 98.1; O2SAT 100
[2023-05-19] MEDS: traZODone 50 MG TAB PO PRN (21:13)
[2023-05-20 08:22] LABS: BASO # 0.1 10^3/uL (0.0-0.2); BASO % 0.5 % (0.0-1.0); EOS # 0.1 10^3/uL (0.0-0.5); EOS % 0.5 % (0.0-3.0); HEMATOCRIT 45.1 % (36.0-47.0); HEMOGLOBIN 14.8 g/dl (12.0-15.5); LYMPH # 1.5 10^3/uL (1.5-5.0); LYMPH % 14.2 % (24.0-44.0); MEAN CORPUSCULAR HEMOGLOBIN 28.6 pg (27.0-33.0); MEAN CORPUSCULAR HGB CONC 32.8 g/dl (32.0-36.5); MEAN CORPUSCULAR VOLUME 87.1 fl (80.0-96.0); MONO # 1.2 10^3/uL (0.0-0.8); MONO % 11.1 % (2.0-8.0); NEUTROPHILS # 7.9 10^3/uL (1.5-8.5); NEUTROPHILS % 73.5 % (36.0-66.0); PLATELET COUNT, AUTOMATED 272 10^3/uL (150-450); RED BLOOD COUNT 5.18 10^6/uL (4.00-5.40); WHITE BLOOD COUNT 10.7 10^3/uL (4.0-10.0)
[2023-05-20] MEDS: OMEPRAZOLE 20MG CAP PO SCH (08:50)
[2023-05-20] MEDS ORDERED: OLANZapine ORAL DISINTEGRATING TAB 5MG PO PRN (13:20)
[2023-05-20 14:28] VITALS: BP 138/86; TEMP 97.9; O2SAT 94
[2023-05-21 06:32] VITALS: BP 104/56; TEMP 96.8; O2SAT 98
[2023-05-21] MEDS: OMEPRAZOLE 20MG CAP PO SCH (09:33)
[2023-05-21 18:25] VITALS: BP 117/66; TEMP 98.2; O2SAT 100
[2023-05-22 06:05] VITALS: BP 106/54; TEMP 98.7; O2SAT 99
[2023-05-22] MEDS: OMEPRAZOLE 20MG CAP PO SCH (09:02)
[2023-05-23 06:18] VITALS: BP 106/59; TEMP 97.9; O2SAT 98
[2023-05-23] MEDS: OMEPRAZOLE 20MG CAP PO SCH (09:42)
[2023-05-23 15:00] VITALS: BP 122/74; TEMP 98.2; O2SAT 96
[2023-05-24 06:32] VITALS: BP 126/71; TEMP 97; O2SAT 98
[2023-05-24] MEDS: OMEPRAZOLE 20MG CAP PO SCH (08:30)
[2023-05-24 17:54] VITALS: BP 134/94; TEMP 97.5; O2SAT 100
[2023-05-25 06:32] VITALS: BP 126/90; TEMP 97.4; O2SAT 98
[2023-05-25] MEDS: OMEPRAZOLE 20MG CAP PO SCH (08:30)
[2023-05-25 17:15] VITALS: BP 125/72; TEMP 98
[2023-05-26 06:36] VITALS: BP 122/71; TEMP 97.3
[2023-05-26] MEDS: OMEPRAZOLE 20MG CAP PO SCH (09:57)
[2023-05-26 17:39] VITALS: BP 130/92; TEMP 97.8
[2023-05-27 06:28] VITALS: BP 114/61; TEMP 97.6; O2SAT 99
[2023-05-27] MEDS: OMEPRAZOLE 20MG CAP PO SCH (09:33)
[2023-05-27 17:47] VITALS: BP 115/81; TEMP 98
[2023-05-27] MEDS: traZODone 50 MG TAB PO PRN (21:01)
[2023-05-28 05:42] VITALS: BP 109/75; TEMP 97.6; O2SAT 100
[2023-05-28] MEDS: OMEPRAZOLE 20MG CAP PO SCH (08:26)
[2023-05-28 16:16] VITALS: BP 137/68; TEMP 97.6; O2SAT 100
[2023-05-29 06:36] VITALS: BP 118/58; TEMP 97.8; O2SAT 98
[2023-05-29] MEDS: OMEPRAZOLE 20MG CAP PO SCH (08:26)
[2023-05-29 18:15] VITALS: BP 117/79; TEMP 98.6
[2023-05-30 06:24] VITALS: BP 125/69; TEMP 97.3; O2SAT 99
[2023-05-30] MEDS: OMEPRAZOLE 20MG CAP PO SCH (09:32)
[2023-05-30 17:04] VITALS: BP 127/87; TEMP 96.3; O2SAT 97
[2023-05-31 06:26] VITALS: BP 117/54; TEMP 97.9; O2SAT 100
[2023-05-31] MEDS: OMEPRAZOLE 20MG CAP PO SCH (08:26)
[2023-05-31] MEDS ORDERED: HALD100I2 IM (10:05)
[2023-05-31] MEDS ORDERED: CLOZ100T5 PO (10:05)
[2023-05-31] MEDS ORDERED: HALO5TAB33 PO (10:05)
[2023-05-31] MEDS ORDERED: HALOPERIDOL DECANOATE 100 MG/ML 1ML VIAL IM ONE (10:30)
[2023-06-04] MEDS ORDERED: CLOZ100T5 PO (18:28)
[2023-06-04] MEDS ORDERED: med rec comment (18:30)
== END 2023-05-31 14:08 | disposition home or self-care (01) | DRG 750 ==
LOC: M ED 21:58 → M ED INP 05-19 02:28 → EEVIPCON 05-19 02:28 → M PSY 05-19 03:28
PROVIDERS: ADMIT Psychiatry & Neurology Psychiatry; ATTEND Student in an Organized Health Care Education/Training Program
DX: F25.0 Schizoaffective disorder, bipolar type (principal); Z85.42 Personal history of malignant neoplasm of other parts of uterus; Z90.79 Acquired absence of other genital organ(s); Z79.899 Other long term (current) drug therapy; Z88.0 Allergy status to penicillin; Z91.040 Latex allergy status; Z20.822 Contact with and (suspected) exposure to COVID-19

== ENCOUNTER 2023-06-04 16:12 | Inpatient (IN) | payer MEDICAID, OTHER ==
[~2023-06-04] VITALS: Ht 175.3 cm; Wt 100.8 kg
[~2023-06-04 16:12] MED LIST changes: +HALD100I2 IM
[2023-06-04 17:03] LABS: HEMATOCRIT 40.5 % (36.0-47.0); HEMOGLOBIN 13.7 g/dl (12.0-15.5); MEAN CORPUSCULAR HEMOGLOBIN 28.9 pg (27.0-33.0); MEAN CORPUSCULAR HGB CONC 33.8 g/dl (32.0-36.5); MEAN CORPUSCULAR VOLUME 85.4 fl (80.0-96.0); PLATELET COUNT, AUTOMATED 181 10^3/uL (150-450); RED BLOOD COUNT 4.74 10^6/uL (4.00-5.40)
[2023-06-04] MEDS ORDERED: MED REC IN PROGRESS XX SCH (17:25)
[2023-06-04 17:27] LABS: ETHYL ALCOHOL (ETHANOL) < 0.003 % (0.000-0.010)
[2023-06-04 17:29] LABS: SALICYLATE LEVEL < 3.0 MG/DL (<30)
[2023-06-04 17:30] LABS: ALBUMIN 3.4 G/DL (3.2-5.2); ALKALINE PHOSPHATASE 99 U/L (46-116); ALT/SGPT 28 U/L (7.0-40); AST/SGOT 22 U/L (<34); BILIRUBIN,DIRECT 0.1 MG/DL (<0.4); BILIRUBIN,TOTAL 0.3 MG/DL (0.3-1.2); BLOOD UREA NITROGEN 12 MG/DL (9-23); CALCIUM LEVEL 9.2 MG/DL (8.5-10.1); CARBON DIOXIDE LEVEL 25 MMOL/L (20-31); CHLORIDE LEVEL 106 MMOL/L (98-107); CREATININE FOR GFR 0.76 MG/DL (0.55-1.30); GLOMERULAR FILTRATION RATE > 60.0 (>58); GLUCOSE, FASTING 96 MG/DL (60-100); POTASSIUM SERUM 3.7 MMOL/L (3.5-5.1); SODIUM LEVEL 137 MMOL/L (136-145); TOTAL PROTEIN 6.5 G/DL (5.7-8.2)
[2023-06-04] MEDS ORDERED: HALO5TAB33 PO (18:28)
[2023-06-04] MEDS ORDERED: HALO0.5H PO (18:28)
[2023-06-04] MEDS ORDERED: HOME MED LIST COMPLETE! XX SCH (18:30)
[2023-06-04 20:00] LABS: AMPHETAMINES LEVEL URINE NEGATIVE (NEGATIVE); BARBITURATES URINE NEGATIVE (NEGATIVE); BENZODIAZEPINES URINE NEGATIVE (NEGATIVE); CANNABINOIDS URINE NEGATIVE (NEGATIVE); COCAINE METABOLITE URINE NEGATIVE (NEGATIVE); METHADONE URINE NEGATIVE (NEGATIVE); OPIATES URINE NEGATIVE (NEGATIVE); PHENCYCLIDINE URINE NEGATIVE (NEGATIVE)
[2023-06-04] MEDS ORDERED: BENZTROPINE 2 MG TAB PO PRN (20:30)
[2023-06-04] MEDS ORDERED: LORazepam 1 MG TAB PO PRN (20:30)
[2023-06-04] MEDS ORDERED: MIRALAX *UNIT DOSE* 17GM PACKET PO PRN (20:30)
[2023-06-04] MEDS ORDERED: MAALOX 30 ML SUSP *UDC PO PRN (20:40)
[2023-06-04] MEDS ORDERED: MOM 30ML SUSPENSION UDC PO PRN (20:40)
[2023-06-04] MEDS ORDERED: IBUPROFEN 400MG TAB PO PRN (20:40)
[2023-06-04 23:18] VITALS: BP 138/70; TEMP 98.3; O2SAT 96
[2023-06-05 06:34] VITALS: BP 139/97; TEMP 98.2; O2SAT 99
[2023-06-05] MEDS ORDERED: MIRALAX *UNIT DOSE* 17GM PACKET PO PRN (10:15)
[2023-06-05 11:21] LABS: BASO % 0.4 % (0.0-1.0); EOS % 0.2 % (0.0-3.0); HEMATOCRIT 39.1 % (36.0-47.0); HEMOGLOBIN 12.8 g/dl (12.0-15.5); LYMPH # 0.7 10^3/uL (1.5-5.0); LYMPH % 13.3 % (24.0-44.0); MEAN CORPUSCULAR HEMOGLOBIN 28.8 pg (27.0-33.0); MEAN CORPUSCULAR HGB CONC 32.7 g/dl (32.0-36.5); MEAN CORPUSCULAR VOLUME 87.9 fl (80.0-96.0); MONO % 18.1 % (2.0-8.0); NEUTROPHILS # 3.7 10^3/uL (1.5-8.5); NEUTROPHILS % 67.6 % (36.0-66.0); PLATELET COUNT, AUTOMATED 146 10^3/uL (150-450); RED BLOOD COUNT 4.45 10^6/uL (4.00-5.40); WHITE BLOOD COUNT 5.5 10^3/uL (4.0-10.0)
[2023-06-05] MEDS: TUBERCULIN PPD 5 UNITS/0.1 ML ID ONE (12:00)
[2023-06-05] MEDS: ACETAMINOPHEN TAB 650MG DOSE (2X325MG) PO PRN (21:05)
[2023-06-06 06:22] VITALS: BP 128/74; TEMP 97.9; O2SAT 98
[2023-06-06 18:17] VITALS: BP 103/71; TEMP 98.9; O2SAT 97
[2023-06-06] MEDS: traZODone 50 MG TAB PO PRN (20:39)
[2023-06-07 06:30] VITALS: BP 106/57; TEMP 97.3; O2SAT 97
[2023-06-07 09:45] VITALS: TEMP 97.8
[2023-06-07] MEDS: PPD DOCUMENTATION ENTRY MISC XX SCH (11:18)
[2023-06-07 16:42] VITALS: BP 110/62; TEMP 97.1; O2SAT 96
[2023-06-08 06:38] VITALS: BP 113/75; TEMP 97.7; O2SAT 100
[2023-06-08 10:29] LABS: BASO % 0.4 % (0.0-1.0); EOS # 0.1 10^3/uL (0.0-0.5); EOS % 2.5 % (0.0-3.0); HEMATOCRIT 40.2 % (36.0-47.0); HEMOGLOBIN 12.9 g/dl (12.0-15.5); LYMPH # 1.3 10^3/uL (1.5-5.0); LYMPH % 28.7 % (24.0-44.0); MEAN CORPUSCULAR HEMOGLOBIN 28.7 pg (27.0-33.0); MEAN CORPUSCULAR HGB CONC 32.1 g/dl (32.0-36.5); MEAN CORPUSCULAR VOLUME 89.5 fl (80.0-96.0); MONO # 0.5 10^3/uL (0.0-0.8); MONO % 11.4 % (2.0-8.0); NEUTROPHILS # 2.5 10^3/uL (1.5-8.5); NEUTROPHILS % 56.8 % (36.0-66.0); PLATELET COUNT, AUTOMATED 142 10^3/uL (150-450); RED BLOOD COUNT 4.49 10^6/uL (4.00-5.40); WHITE BLOOD COUNT 4.5 10^3/uL (4.0-10.0)
[2023-06-08 11:08] LABS: CLOZAPINE 1 899 ng/mL (350-600); CLOZAPINE 2 181 ng/mL (Not Estab.); CLOZAPINE 3 1080 ng/mL (.)
[2023-06-08] MEDS: LORazepam 1 MG TAB PO PRN (14:33)
[2023-06-08 16:28] VITALS: BP 128/80; TEMP 97.2; O2SAT 98
[2023-06-09 06:15] VITALS: BP 113/53; TEMP 97.5; O2SAT 99
[2023-06-09] MEDS: diphenhydrAMINE 25MG CAP PO PRN (13:19)
[2023-06-09 18:26] VITALS: BP 124/65; TEMP 98.4
[2023-06-10 06:04] VITALS: BP 127/60; TEMP 97.1; O2SAT 96
[2023-06-10 18:50] VITALS: BP 128/81; TEMP 98.2
[2023-06-11 06:21] VITALS: BP 110/78; TEMP 97.5; O2SAT 100
[2023-06-11 17:58] VITALS: BP 114/77; TEMP 97.2; O2SAT 99
[2023-06-12 06:33] VITALS: BP 123/65; TEMP 97.1; O2SAT 97
[2023-06-12 16:21] VITALS: BP 117/61; TEMP 97.7; O2SAT 98
[2023-06-13 06:53] VITALS: BP 116/66; TEMP 97.4; O2SAT 95
[2023-06-13 17:24] VITALS: BP 119/60; TEMP 97.6
[2023-06-14 06:56] VITALS: BP 133/68; TEMP 96.8; O2SAT 98
[2023-06-14 17:07] VITALS: BP 142/75; TEMP 97.3; O2SAT 99
[2023-06-15 06:41] VITALS: BP 119/67; TEMP 97.3; O2SAT 98
[2023-06-15 16:10] VITALS: BP 110/80; TEMP 98.3; O2SAT 98
[2023-06-16 06:45] VITALS: BP 98/57; TEMP 97.9; O2SAT 97
[2023-06-16 16:03] VITALS: BP 104/72; TEMP 98.4; O2SAT 98
[2023-06-17 06:52] VITALS: BP 157/70; TEMP 97.2; O2SAT 99
[2023-06-17 16:26] VITALS: BP 107/59; TEMP 98.1; O2SAT 98
[2023-06-18 06:46] VITALS: BP 127/77; TEMP 97.4; O2SAT 97
[2023-06-18 12:08] LABS: CLOZAPINE 1 450 ng/mL (350-600); CLOZAPINE 2 150 ng/mL (Not Estab.); CLOZAPINE 3 600 ng/mL (.)
[2023-06-18 13:27] LABS: BASO % 0.5 % (0.0-1.0); EOS # 0.1 10^3/uL (0.0-0.5); EOS % 0.9 % (0.0-3.0); HEMOGLOBIN 14.7 g/dl (12.0-15.5); LYMPH # 1.5 10^3/uL (1.5-5.0); LYMPH % 17.2 % (24.0-44.0); MEAN CORPUSCULAR HEMOGLOBIN 28.2 pg (27.0-33.0); MEAN CORPUSCULAR HGB CONC 32.7 g/dl (32.0-36.5); MEAN CORPUSCULAR VOLUME 86.4 fl (80.0-96.0); MONO # 0.5 10^3/uL (0.0-0.8); NEUTROPHILS # 6.6 10^3/uL (1.5-8.5); NEUTROPHILS % 75.1 % (36.0-66.0); PLATELET COUNT, AUTOMATED 229 10^3/uL (150-450); RED BLOOD COUNT 5.21 10^6/uL (4.00-5.40); WHITE BLOOD COUNT 8.8 10^3/uL (4.0-10.0)
[2023-06-18 18:54] VITALS: BP 123/72; TEMP 98
[2023-06-19 06:18] VITALS: BP 113/54; TEMP 97.1; O2SAT 96
[2023-06-19 18:57] VITALS: BP 114/69; TEMP 98.2; O2SAT 98
[2023-06-20 06:03] VITALS: BP 134/75; TEMP 97.1; O2SAT 95
[2023-06-20] MEDS ORDERED: **PENDING PPD ENTRY XX SCH (09:00)
[2023-06-20] MEDS: TUBERCULIN PPD 5 UNITS/0.1 ML ID ONE (16:15)
[2023-06-20 16:47] VITALS: BP 126/68; TEMP 97.9; O2SAT 96
[2023-06-21 05:56] VITALS: BP 135/79; TEMP 97.5; O2SAT 97
[2023-06-21] MEDS ORDERED: TUBERCULIN PPD 5 UNITS/0.1 ML ID ONE (10:00)
[2023-06-21 16:03] VITALS: BP 119/97; TEMP 96.9; O2SAT 100
[2023-06-22 06:12] VITALS: BP 122/60; TEMP 97.2; O2SAT 97
[2023-06-22] MEDS ORDERED: PPD DOCUMENTATION ENTRY MISC XX SCH (10:00)
[2023-06-22] MEDS: BENZTROPINE 2 MG TAB PO PRN (12:01)
[2023-06-22] MEDS: PPD DOCUMENTATION ENTRY MISC XX ONE (15:26)
[2023-06-22 16:31] VITALS: BP 111/79; TEMP 97.6; O2SAT 97
[2023-06-23 06:10] VITALS: BP 117/62; TEMP 98.1
[2023-06-23 06:22] VITALS: BP 117/62; TEMP 98.1
[2023-06-23 16:21] VITALS: BP 100/66; TEMP 98.6; O2SAT 98
[2023-06-24 06:16] VITALS: BP 130/64; TEMP 96.8; O2SAT 98
[2023-06-24 15:53] VITALS: BP 135/70; TEMP 97.4; O2SAT 100
[2023-06-25 06:20] VITALS: BP 152/78; TEMP 97.1; O2SAT 99
[2023-06-25 17:19] VITALS: BP 106/58; TEMP 97.6
[2023-06-26 06:34] VITALS: BP 143/70; TEMP 97; O2SAT 99
[2023-06-26 19:08] VITALS: BP 135/82; TEMP 97.1; O2SAT 98
[2023-06-27 06:53] VITALS: BP 142/75; TEMP 96.8; O2SAT 100
[2023-06-27 19:04] VITALS: BP 113/67; TEMP 98
[2023-06-28 06:19] VITALS: BP 111/70; TEMP 97.4; O2SAT 99
[2023-06-28] MEDS: DOCUSATE SODIUM 100MG CAPSULE PO PRN (09:04)
[2023-06-28 18:00] VITALS: BP 110/58; TEMP 98.5; O2SAT 99
[2023-06-29 06:45] VITALS: BP 133/61; TEMP 98.4
[2023-06-29 16:19] VITALS: BP 111/69; TEMP 97.6; O2SAT 100
[2023-06-30 06:37] VITALS: BP 115/58; TEMP 97.2; O2SAT 99
[2023-06-30 16:45] VITALS: BP 125/74; TEMP 97.6; O2SAT 99
[2023-07-01 06:38] VITALS: BP 128/62; TEMP 98.4; O2SAT 100
[2023-07-01 17:01] VITALS: BP 104/62; TEMP 97.6; O2SAT 100
[2023-07-02 06:36] VITALS: BP 112/55; TEMP 98.2; O2SAT 96
[2023-07-02 13:59] LABS: BASO % 0.4 % (0.0-1.0); EOS # 0.1 10^3/uL (0.0-0.5); EOS % 1.3 % (0.0-3.0); HEMATOCRIT 42.3 % (36.0-47.0); HEMOGLOBIN 13.9 g/dl (12.0-15.5); LYMPH # 1.5 10^3/uL (1.5-5.0); LYMPH % 20.3 % (24.0-44.0); MEAN CORPUSCULAR HEMOGLOBIN 28.8 pg (27.0-33.0); MEAN CORPUSCULAR HGB CONC 32.9 g/dl (32.0-36.5); MEAN CORPUSCULAR VOLUME 87.8 fl (80.0-96.0); MONO # 0.5 10^3/uL (0.0-0.8); MONO % 6.2 % (2.0-8.0); NEUTROPHILS # 5.4 10^3/uL (1.5-8.5); NEUTROPHILS % 71.4 % (36.0-66.0); PLATELET COUNT, AUTOMATED 167 10^3/uL (150-450); RED BLOOD COUNT 4.82 10^6/uL (4.00-5.40); WHITE BLOOD COUNT 7.6 10^3/uL (4.0-10.0)
[2023-07-02 18:17] VITALS: BP 143/77; TEMP 97.6; O2SAT 100
[2023-07-03 06:40] VITALS: BP 119/66; TEMP 96.9; O2SAT 98
[2023-07-03 12:43] VITALS: BP 138/77; TEMP 97.2; O2SAT 100
== END 2023-07-03 14:16 | DRG 750 ==
LOC: M ED 16:12 → M ED INP 20:38 → M PSY 22:41
PROVIDERS: ADMIT Student in an Organized Health Care Education/Training Program; ATTEND Student in an Organized Health Care Education/Training Program
DX: F25.0 Schizoaffective disorder, bipolar type (principal); U07.1 COVID-19; Z88.0 Allergy status to penicillin; Z91.040 Latex allergy status; Z79.899 Other long term (current) drug therapy

== ENCOUNTER → 2023-11-13 | Outpatient (CLI) | payer OTHER ==
[~2023-11-13] MED LIST changes: +HALO0.5H PO; -MIRA1POW3 PO; +MIRA33506 PO
[2023-11-13 15:15] LABS: HEMATOCRIT 42.5 % (36.0-47.0); HEMOGLOBIN 14.4 g/dl (12.0-15.5); MEAN CORPUSCULAR HEMOGLOBIN 29.5 pg (27.0-33.0); MEAN CORPUSCULAR HGB CONC 33.9 g/dl (32.0-36.5); MEAN CORPUSCULAR VOLUME 87.1 fl (80.0-96.0); PLATELET COUNT, AUTOMATED 171 10^3/uL (150-450); RED BLOOD COUNT 4.88 10^6/uL (4.00-5.40)
== END ==
LOC: M PLALAB 14:16
PROVIDERS: ATTEND Psychiatry & Neurology Psychiatry
DX: F25.0 Schizoaffective disorder, bipolar type (principal)

== ENCOUNTER → 2023-11-16 | Outpatient (CLI) | payer OTHER ==
[2023-11-16 15:25] LABS: BASO % 0.4 % (0.0-1.0); EOS # 0.1 10^3/uL (0.0-0.5); EOS % 1.2 % (0.0-3.0); HEMATOCRIT 42.3 % (36.0-47.0); HEMOGLOBIN 14.4 g/dl (12.0-15.5); LYMPH # 1.8 10^3/uL (1.5-5.0); LYMPH % 17.8 % (24.0-44.0); MEAN CORPUSCULAR HEMOGLOBIN 30.1 pg (27.0-33.0); MEAN CORPUSCULAR VOLUME 88.3 fl (80.0-96.0); MONO # 1.1 10^3/uL (0.0-0.8); MONO % 10.4 % (2.0-8.0); NEUTROPHILS # 7.2 10^3/uL (1.5-8.5); NEUTROPHILS % 69.8 % (36.0-66.0); PLATELET COUNT, AUTOMATED 172 10^3/uL (150-450); RED BLOOD COUNT 4.79 10^6/uL (4.00-5.40); WHITE BLOOD COUNT 10.4 10^3/uL (4.0-10.0)
== END ==
LOC: M PLALAB 14:12
PROVIDERS: ATTEND Psychiatry & Neurology Psychiatry
DX: F25.0 Schizoaffective disorder, bipolar type (principal)

== ENCOUNTER → 2024-01-15 | Outpatient (CLI) | payer OTHER ==
[2024-01-15 18:25] LABS: BASO # 0.1 10^3/uL (0.0-0.2); BASO % 0.6 % (0.0-1.0); EOS # 0.2 10^3/uL (0.0-0.5); EOS % 2.8 % (0.0-3.0); HEMOGLOBIN 14.8 g/dl (12.0-15.5); LYMPH # 2.4 10^3/uL (1.5-5.0); LYMPH % 30.1 % (24.0-44.0); MEAN CORPUSCULAR HEMOGLOBIN 29.5 pg (27.0-33.0); MEAN CORPUSCULAR HGB CONC 33.6 g/dl (32.0-36.5); MEAN CORPUSCULAR VOLUME 87.8 fl (80.0-96.0); MONO # 0.8 10^3/uL (0.0-0.8); MONO % 9.7 % (2.0-8.0); NEUTROPHILS # 4.4 10^3/uL (1.5-8.5); NEUTROPHILS % 56.5 % (36.0-66.0); PLATELET COUNT, AUTOMATED 205 10^3/uL (150-450); RED BLOOD COUNT 5.01 10^6/uL (4.00-5.40); WHITE BLOOD COUNT 7.8 10^3/uL (4.0-10.0)
== END ==
LOC: M PLALAB 14:40
PROVIDERS: ATTEND Psychiatry & Neurology Psychiatry
DX: F25.0 Schizoaffective disorder, bipolar type (principal)

== ENCOUNTER → 2024-02-08 | Outpatient (CLI) | payer MEDICAID, OTHER ==
[2024-02-08 18:40] LABS: BASO # 0.1 10^3/uL (0.0-0.2); BASO % 0.7 % (0.0-1.0); EOS # 0.2 10^3/uL (0.0-0.5); EOS % 2.4 % (0.0-3.0); HEMATOCRIT 44.8 % (36.0-47.0); HEMOGLOBIN 15.1 g/dl (12.0-15.5); LYMPH # 2.6 10^3/uL (1.5-5.0); LYMPH % 27.7 % (24.0-44.0); MEAN CORPUSCULAR HEMOGLOBIN 29.8 pg (27.0-33.0); MEAN CORPUSCULAR HGB CONC 33.7 g/dl (32.0-36.5); MEAN CORPUSCULAR VOLUME 88.4 fl (80.0-96.0); MONO # 1.1 10^3/uL (0.0-0.8); MONO % 11.6 % (2.0-8.0); NEUTROPHILS # 5.4 10^3/uL (1.5-8.5); NEUTROPHILS % 57.3 % (36.0-66.0); PLATELET COUNT, AUTOMATED 195 10^3/uL (150-450); RED BLOOD COUNT 5.07 10^6/uL (4.00-5.40); WHITE BLOOD COUNT 9.4 10^3/uL (4.0-10.0)
== END ==
LOC: M PLAIMG 14:52
PROVIDERS: ATTEND Psychiatry & Neurology Psychiatry
DX: F25.0 Schizoaffective disorder, bipolar type (principal)

== ENCOUNTER → 2024-03-10 | Outpatient (CLI) | payer OTHER ==
[2024-03-10 18:45] LABS: BASO % 0.5 % (0.0-1.0); EOS # 0.2 10^3/uL (0.0-0.5); EOS % 2.1 % (0.0-3.0); HEMATOCRIT 44.8 % (36.0-47.0); LYMPH # 2.1 10^3/uL (1.5-5.0); LYMPH % 23.3 % (24.0-44.0); MEAN CORPUSCULAR HEMOGLOBIN 29.6 pg (27.0-33.0); MEAN CORPUSCULAR HGB CONC 33.5 g/dl (32.0-36.5); MEAN CORPUSCULAR VOLUME 88.5 fl (80.0-96.0); MONO # 0.8 10^3/uL (0.0-0.8); MONO % 9.5 % (2.0-8.0); NEUTROPHILS # 5.7 10^3/uL (1.5-8.5); NEUTROPHILS % 64.3 % (36.0-66.0); PLATELET COUNT, AUTOMATED 187 10^3/uL (150-450); RED BLOOD COUNT 5.06 10^6/uL (4.00-5.40); WHITE BLOOD COUNT 8.8 10^3/uL (4.0-10.0)
== END ==
LOC: M PLALAB 14:24
DX: F25.0 Schizoaffective disorder, bipolar type (principal)

== ENCOUNTER → 2024-04-09 | Outpatient (CLI) | payer OTHER ==
[~2024-04-09] MED LIST changes: +NYST1POW3 TOP; -NYST1POW9 TOP
[2024-04-09 14:09] LABS: BASO # 0.1 10^3/uL (0.0-0.2); BASO % 0.5 % (0.0-1.0); EOS # 0.3 10^3/uL (0.0-0.5); EOS % 2.2 % (0.0-3.0); HEMATOCRIT 45.4 % (36.0-47.0); HEMOGLOBIN 14.9 g/dl (12.0-15.5); LYMPH # 2.2 10^3/uL (1.5-5.0); LYMPH % 18.1 % (24.0-44.0); MEAN CORPUSCULAR HGB CONC 32.8 g/dl (32.0-36.5); MEAN CORPUSCULAR VOLUME 88.3 fl (80.0-96.0); MONO % 8.1 % (2.0-8.0); NEUTROPHILS # 8.8 10^3/uL (1.5-8.5); NEUTROPHILS % 70.8 % (36.0-66.0); PLATELET COUNT, AUTOMATED 191 10^3/uL (150-450); RED BLOOD COUNT 5.14 10^6/uL (4.00-5.40); WHITE BLOOD COUNT 12.4 10^3/uL (4.0-10.0)
== END ==
LOC: M PLALAB 12:24
PROVIDERS: ATTEND Psychiatry & Neurology Psychiatry
DX: F25.0 Schizoaffective disorder, bipolar type (principal)

== ENCOUNTER → 2024-05-05 | Outpatient (CLI) | payer OTHER ==
[~2024-05-05] MED LIST changes: -LORA2TA PO; +LORA2TAB15 PO
[2024-05-05 15:36] LABS: BASO # 0.1 10^3/uL (0.0-0.2); BASO % 0.6 % (0.0-1.0); EOS # 0.2 10^3/uL (0.0-0.5); EOS % 1.9 % (0.0-3.0); HEMOGLOBIN 15.4 g/dl (12.0-15.5); LYMPH % 22.8 % (24.0-44.0); MEAN CORPUSCULAR HEMOGLOBIN 29.7 pg (27.0-33.0); MEAN CORPUSCULAR HGB CONC 33.5 g/dl (32.0-36.5); MEAN CORPUSCULAR VOLUME 88.6 fl (80.0-96.0); MONO # 0.9 10^3/uL (0.0-0.8); MONO % 10.3 % (2.0-8.0); NEUTROPHILS # 5.5 10^3/uL (1.5-8.5); NEUTROPHILS % 64.2 % (36.0-66.0); PLATELET COUNT, AUTOMATED 174 10^3/uL (150-450); RED BLOOD COUNT 5.19 10^6/uL (4.00-5.40); WHITE BLOOD COUNT 8.6 10^3/uL (4.0-10.0)
== END ==
LOC: M PLALAB 13:45
PROVIDERS: ATTEND Psychiatry & Neurology Psychiatry
DX: F25.0 Schizoaffective disorder, bipolar type (principal)

== ENCOUNTER → 2024-06-02 | Outpatient (CLI) | payer OTHER ==
[2024-06-02 15:50] LABS: BASO % 0.5 % (0.0-1.0); EOS # 0.2 10^3/uL (0.0-0.5); HEMATOCRIT 45.1 % (36.0-47.0); HEMOGLOBIN 15.1 g/dl (12.0-15.5); LYMPH # 1.8 10^3/uL (1.5-5.0); LYMPH % 24.4 % (24.0-44.0); MEAN CORPUSCULAR HEMOGLOBIN 29.7 pg (27.0-33.0); MEAN CORPUSCULAR HGB CONC 33.5 g/dl (32.0-36.5); MEAN CORPUSCULAR VOLUME 88.8 fl (80.0-96.0); MONO # 0.5 10^3/uL (0.0-0.8); MONO % 6.9 % (2.0-8.0); NEUTROPHILS % 65.9 % (36.0-66.0); PLATELET COUNT, AUTOMATED 177 10^3/uL (150-450); RED BLOOD COUNT 5.08 10^6/uL (4.00-5.40); WHITE BLOOD COUNT 7.6 10^3/uL (4.0-10.0)
== END ==
LOC: M PLALAB 13:39
PROVIDERS: ATTEND Psychiatry & Neurology Psychiatry
DX: F25.0 Schizoaffective disorder, bipolar type (principal)

== ENCOUNTER → 2024-07-01 | Outpatient (CLI) | payer OTHER ==
[2024-07-01 15:23] LABS: BASO # 0.1 10^3/uL (0.0-0.2); BASO % 0.6 % (0.0-1.0); EOS # 0.2 10^3/uL (0.0-0.5); EOS % 1.8 % (0.0-3.0); HEMATOCRIT 47.7 % (36.0-47.0); LYMPH # 2.6 10^3/uL (1.5-5.0); MEAN CORPUSCULAR HEMOGLOBIN 29.5 pg (27.0-33.0); MEAN CORPUSCULAR HGB CONC 33.5 g/dl (32.0-36.5); MONO # 0.9 10^3/uL (0.0-0.8); MONO % 10.9 % (2.0-8.0); NEUTROPHILS # 4.8 10^3/uL (1.5-8.5); NEUTROPHILS % 56.6 % (36.0-66.0); PLATELET COUNT, AUTOMATED 195 10^3/uL (150-450); RED BLOOD COUNT 5.42 10^6/uL (4.00-5.40); WHITE BLOOD COUNT 8.5 10^3/uL (4.0-10.0)
== END ==
LOC: M PLALAB 13:25
PROVIDERS: ATTEND Psychiatry & Neurology Psychiatry
DX: F25.0 Schizoaffective disorder, bipolar type (principal)

== ENCOUNTER → 2024-08-06 | Outpatient (CLI) | payer BC, OTHER ==
[2024-08-06 15:43] LABS: BASO # 0.1 10^3/uL (0.0-0.2); BASO % 0.7 % (0.0-1.0); EOS # 0.2 10^3/uL (0.0-0.5); EOS % 1.8 % (0.0-3.0); HEMATOCRIT 45.3 % (36.0-47.0); HEMOGLOBIN 14.9 g/dl (12.0-15.5); LYMPH # 2.2 10^3/uL (1.5-5.0); LYMPH % 24.2 % (24.0-44.0); MEAN CORPUSCULAR HEMOGLOBIN 29.1 pg (27.0-33.0); MEAN CORPUSCULAR HGB CONC 32.9 g/dl (32.0-36.5); MEAN CORPUSCULAR VOLUME 88.5 fl (80.0-96.0); MONO # 0.9 10^3/uL (0.0-0.8); MONO % 9.6 % (2.0-8.0); NEUTROPHILS # 5.7 10^3/uL (1.5-8.5); NEUTROPHILS % 63.4 % (36.0-66.0); PLATELET COUNT, AUTOMATED 193 10^3/uL (150-450); RED BLOOD COUNT 5.12 10^6/uL (4.00-5.40); WHITE BLOOD COUNT 9.1 10^3/uL (4.0-10.0)
== END ==
LOC: M PLALAB 13:52
DX: F25.0 Schizoaffective disorder, bipolar type (principal)

== ENCOUNTER → 2024-09-05 | Outpatient (REF) | payer OTHER ==
[2024-09-05 16:43] LABS: BASO # 0.1 10^3/uL (0.0-0.2); BASO % 0.7 % (0.0-1.0); EOS # 0.2 10^3/uL (0.0-0.5); EOS % 2.3 % (0.0-3.0); HEMATOCRIT 44.9 % (36.0-47.0); HEMOGLOBIN 14.7 g/dl (12.0-15.5); LYMPH # 2.1 10^3/uL (1.5-5.0); LYMPH % 24.8 % (24.0-44.0); MEAN CORPUSCULAR HEMOGLOBIN 29.2 pg (27.0-33.0); MEAN CORPUSCULAR HGB CONC 32.7 g/dl (32.0-36.5); MEAN CORPUSCULAR VOLUME 89.1 fl (80.0-96.0); MONO % 11.6 % (2.0-8.0); NEUTROPHILS # 5.2 10^3/uL (1.5-8.5); NEUTROPHILS % 60.2 % (36.0-66.0); PLATELET COUNT, AUTOMATED 204 10^3/uL (150-450); RED BLOOD COUNT 5.04 10^6/uL (4.00-5.40); WHITE BLOOD COUNT 8.6 10^3/uL (4.0-10.0)
== END ==
LOC: M PLALAB 15:47
PROVIDERS: ATTEND Psychiatry & Neurology Psychiatry
DX: F25.0 Schizoaffective disorder, bipolar type (principal)

== ENCOUNTER → 2024-10-06 | Outpatient (CLI) | payer OTHER ==
[2024-10-06 16:05] LABS: BASO # 0.1 10^3/uL (0.0-0.2); BASO % 0.7 % (0.0-1.0); EOS # 0.1 10^3/uL (0.0-0.5); EOS % 1.5 % (0.0-3.0); HEMATOCRIT 44.9 % (36.0-47.0); HEMOGLOBIN 14.6 g/dl (12.0-15.5); LYMPH # 1.9 10^3/uL (1.5-5.0); LYMPH % 20.5 % (24.0-44.0); MEAN CORPUSCULAR HGB CONC 32.5 g/dl (32.0-36.5); MEAN CORPUSCULAR VOLUME 89.3 fl (80.0-96.0); MONO # 0.9 10^3/uL (0.0-0.8); MONO % 9.6 % (2.0-8.0); NEUTROPHILS # 6.1 10^3/uL (1.5-8.5); NEUTROPHILS % 67.5 % (36.0-66.0); PLATELET COUNT, AUTOMATED 198 10^3/uL (150-450); RED BLOOD COUNT 5.03 10^6/uL (4.00-5.40); WHITE BLOOD COUNT 9.1 10^3/uL (4.0-10.0)
== END ==
LOC: M PLALAB 13:44
PROVIDERS: ATTEND Psychiatry & Neurology Psychiatry
DX: F25.0 Schizoaffective disorder, bipolar type (principal)

== ENCOUNTER → 2024-12-01 | Outpatient (CLI) | payer OTHER ==
[~2024-12-01] MED LIST changes: +DEPA250T PO; -DEPA250T2 PO
[2024-12-01 18:05] LABS: BASO # 0.0 10^3/uL (0.0-0.2); BASO % 0.5 % (0.0-1.0); EOS # 0.2 10^3/uL (0.0-0.5); EOS % 2.2 % (0.0-3.0); LYMPH # 2.1 10^3/uL (1.5-5.0); LYMPH % 25.0 % (24.0-44.0); MONO # 0.9 10^3/uL (0.0-0.8); MONO % 10.3 % (2.0-8.0); NEUTROPHILS # 5.1 10^3/uL (1.5-8.5); NEUTROPHILS % 61.8 % (36.0-66.0); PLATELET COUNT, AUTOMATED 204 10^3/uL (150-450)
== END ==
LOC: M PLALAB 15:41
PROVIDERS: ATTEND Psychiatry & Neurology Psychiatry
DX: F25.0 Schizoaffective disorder, bipolar type (principal)

== ENCOUNTER → 2024-12-29 | Outpatient (CLI) | payer OTHER ==
[2024-12-29 15:26] LABS: BASO # 0.1 10^3/uL (0.0-0.2); BASO % 0.7 % (0.0-1.0); EOS # 0.2 10^3/uL (0.0-0.5); EOS % 1.7 % (0.0-3.0); LYMPH # 1.9 10^3/uL (1.5-5.0); LYMPH % 22.1 % (24.0-44.0); MONO # 0.9 10^3/uL (0.0-0.8); MONO % 10.0 % (2.0-8.0); NEUTROPHILS # 5.7 10^3/uL (1.5-8.5); NEUTROPHILS % 65.0 % (36.0-66.0); PLATELET COUNT, AUTOMATED 185 10^3/uL (150-450)
== END ==
LOC: M PLALAB 14:17
PROVIDERS: ATTEND Psychiatry & Neurology Psychiatry
DX: F25.0 Schizoaffective disorder, bipolar type (principal)

== ENCOUNTER → 2025-01-28 | Outpatient (CLI) | payer OTHER ==
[2025-01-28 17:08] LABS: BASO # 0.1 10^3/uL (0.0-0.2); BASO % 0.7 % (0.0-1.0); EOS # 0.2 10^3/uL (0.0-0.5); EOS % 2.1 % (0.0-3.0); LYMPH # 1.9 10^3/uL (1.5-5.0); LYMPH % 22.8 % (24.0-44.0); MONO # 0.7 10^3/uL (0.0-0.8); MONO % 8.7 % (2.0-8.0); NEUTROPHILS # 5.5 10^3/uL (1.5-8.5); NEUTROPHILS % 65.5 % (36.0-66.0); PLATELET COUNT, AUTOMATED 184 10^3/uL (150-450)
== END ==
LOC: M PLALAB 13:39
PROVIDERS: ATTEND Psychiatry & Neurology Psychiatry
DX: F25.0 Schizoaffective disorder, bipolar type (principal)

== ENCOUNTER → 2025-02-27 | Outpatient (CLI) | payer OTHER ==
[2025-02-27 14:16] LABS: BASO # 0.1 10^3/uL (0.0-0.2); BASO % 0.7 % (0.0-1.0); EOS # 0.2 10^3/uL (0.0-0.5); EOS % 2.2 % (0.0-3.0); LYMPH # 1.7 10^3/uL (1.5-5.0); LYMPH % 23.6 % (24.0-44.0); MONO # 0.6 10^3/uL (0.0-0.8); MONO % 8.5 % (2.0-8.0); NEUTROPHILS # 4.7 10^3/uL (1.5-8.5); NEUTROPHILS % 64.7 % (36.0-66.0); PLATELET COUNT, AUTOMATED 191 10^3/uL (150-450)
== END ==
LOC: M PLALAB 11:50
PROVIDERS: ATTEND Psychiatry & Neurology Psychiatry
DX: F25.0 Schizoaffective disorder, bipolar type (principal)

== ENCOUNTER → 2025-04-01 | Outpatient (CLI) | payer OTHER ==
[2025-04-01 14:26] LABS: BASO # 0.1 10^3/uL (0.0-0.2); BASO % 0.7 % (0.0-1.0); EOS # 0.2 10^3/uL (0.0-0.5); EOS % 2.3 % (0.0-3.0); LYMPH # 1.6 10^3/uL (1.5-5.0); LYMPH % 23.3 % (24.0-44.0); MONO # 0.7 10^3/uL (0.0-0.8); MONO % 9.4 % (2.0-8.0); NEUTROPHILS # 4.4 10^3/uL (1.5-8.5); NEUTROPHILS % 64.2 % (36.0-66.0); PLATELET COUNT, AUTOMATED 185 10^3/uL (150-450)
== END ==
LOC: M PLALAB 11:47
PROVIDERS: ATTEND Psychiatry & Neurology Psychiatry
DX: F25.0 Schizoaffective disorder, bipolar type (principal); Z79.899 Other long term (current) drug therapy

== ENCOUNTER → 2025-04-29 | Outpatient (CLI) | payer OTHER ==
[2025-04-29 17:29] LABS: BASO # 0.1 10^3/uL (0.0-0.2); BASO % 0.8 % (0.0-1.0); EOS # 0.2 10^3/uL (0.0-0.5); EOS % 2.6 % (0.0-3.0); LYMPH # 1.7 10^3/uL (1.5-5.0); LYMPH % 22.2 % (24.0-44.0); MONO # 0.8 10^3/uL (0.0-0.8); MONO % 9.6 % (2.0-8.0); NEUTROPHILS # 5.0 10^3/uL (1.5-8.5); NEUTROPHILS % 64.4 % (36.0-66.0); PLATELET COUNT, AUTOMATED 182 10^3/uL (150-450)
== END ==
LOC: M PLALAB 15:01
PROVIDERS: ATTEND Psychiatry & Neurology Psychiatry
DX: Z51.81 Encounter for therapeutic drug level monitoring (principal); Z79.899 Other long term (current) drug therapy